=== PATIENT | female | born 1950 | race Caucasian/White ===

== ENCOUNTER → 2016-05-22 | Outpatient (CLI) | payer MEDICARE ==
[~2016-05-22] MED LIST: /ACETCOD2T PO; /ALEN70TA; /ESOM40CA OR; /MOM400 OR; /PANT40TA; /SALMDISK IN; /TIOT18INH; /TIOT18INH INH; /WARF25TA OR; ACET65TA OR; ADV250INH INH; ADVA115A INH; AMLO5TAB2 PO; AMRIX; ASPI1TAB PO; ATEN100T PO; BABY81CH OR; CALC600T10; CALCTAB22 OR; CELE20TA OR; CIPR500T89 PO; CLAR5CHW; CLAR5CHW OR; CLIN300C OR; COMBVENT INH; CORE3.12 PO; CYCLOBENZAPRINE PO; FLON1SPR; FORADIL; FURO20TA2 PO; FURO40TA2 PO; GABA300C3 PO; GABA300T; GEMF600T; GEMF600T OR; GLUC1000 OR; IPRASOL4 INH; JANU100T PO; JANUVIA; KLOR1TAB77 PO; LASI40TA OR; LEVA500T PO; LISI-542 PO; LISI2.5T3 PO; LISI5TAB PO; MAGN400C2 PO; MAGN400T5 PO; METF1000 PO; METO5TA PO; MULTIVIT; MULTLIQ7 PO; NEUR300C; PERC7.5T8 OR; PLAV75TA2; POTA20TA; POTA20TA PO; PRED1TAB32 OR; PROA1AER INH; PROT1TAB2 PO; RYZOLT; SING10TA31 OR; SINGULAIR PO; SKEL800T5; SPIR1CAP INH; SPIR25TA2 PO; SUCR1TAB56 PO; TENO100T OR; TIZA2CAP3 PO; TIZA4CAP3 PO; TRAM50TA2 PO; TYLENOL ARTHRITIS; VICO5TAB OR; VIT D 2000 PO; VITA200038 PO; VITAMIN D; ZANA4TAB PO; ZOCO20TA; ZOCO40TA PO; januvia OR
[2016-05-22 13:30] LABS: MEAN CORPUSCULAR HEMOGLOBIN 27.8 pg (27.0-33.0); MEAN CORPUSCULAR HGB CONC 33.7 g/dl (32.0-36.5); MEAN CORPUSCULAR VOLUME 82.6 fl (80.0-96.0); RED CELL DISTRIBUTION WIDTH 15.3 % (11.5-14.5); WHITE BLOOD COUNT 8.8 K/mm3 (4.0-10.0)
[2016-05-22 13:45] LABS: ANION GAP 9 MEQ/L (8-16); BLOOD UREA NITROGEN 15 MG/DL (7-18); CALCIUM LEVEL 9.4 MG/DL (8.8-10.2); CARBON DIOXIDE LEVEL 31 MEQ/L (21-32); CHLORIDE LEVEL 99 MEQ/L (98-107); CREATININE FOR GFR 0.94 MG/DL (0.55-1.02); GLOMERULAR FILTRATION RATE > 60.0 (>45); GLUCOSE, FASTING 101 MG/DL (80-110); POTASSIUM SERUM 4.5 MEQ/L (3.5-5.1); SODIUM LEVEL 139 MEQ/L (136-145)
== END ==
LOC: M SMT 10:28
PROVIDERS: ATTEND Urology
DX: Z85.51 Personal history of malignant neoplasm of bladder (principal); Z79.899 Other long term (current) drug therapy

== ENCOUNTER → 2016-06-09 | Outpatient (CLI) | payer MEDICARE ==
[~2016-06-09] VITALS: Ht 154.9 cm; Wt 101.2 kg
[~2016-06-09] MED LIST changes: +ESOM0.1C PO; +FURO1TAB15 PO; +LIDOCAINE 2% INJ 100 MG/5 ML SDV (FOR ANES.) As Ordered ONE; +NS 1,000 ML IV SCH; +PROPOFOL 200 MG/20 ML VIAL As Ordered ONE; +SITA50TAB PO; +SUCR1TA PO; +VITA10002 PO
--- NOTE | 2016-06-09 09:28 | ROOR ---
Patient Name: Meena Lerma Procedure Date: 06/09/2016 9:06 AM Date of : 1950 Age: 66 Room: [facility] Gender: Female Note Status: Finalized Procedure: Upper GI endoscopy + Biopsies Indications: Heartburn, Suspected gastroparesis, Weight loss Providers: Feliciano Petersen MD Referring MD: Obinna Carter MD Requesting Provider: Medicines: Monitored Anesthesia Care Complications: No immediate complications. Procedure: Pre-Anesthesia Assessment: - The heart rate, respiratory rate, oxygen saturations, blood pressure, adequacy of pulmonary ventilation, and response to care were monitored throughout the procedure. The Endoscope was introduced through the mouth, and advanced to the second part of duodenum. The upper GI endoscopy was accomplished without difficulty. The patient tolerated the procedure well. Findings: The Z-line was irregular and was found 39 cm from the incisors. Multiple biopsies were obtained with cold forceps for evaluation to rule out Bernal's Esophagus randomly at the gastroesophageal junction. No other significant abnormalities were identified in a careful examination of the stomach. The exam of the duodenum was otherwise normal. Impression: - Z-line irregular, 39 cm from the incisors. - Multiple biopsies were obtained at the gastroesophageal junction. - The examination was otherwise normal. Recommendation: - Patient has a contact number available for emergencies. The signs and symptoms of potential delayed complications were discussed with the patient. Return to normal activities tomorrow. Written discharge instructions were provided to the patient. - High fiber diet. - Discharge patient to home. - Follow an antireflux regimen. - Continue present medications. - Await pathology results. - Telephone GI clinic for pathology results in 1 week. - Return to referring physician. - Use metoclopramide 5 mg PO QID; 30 min AC and HS. - The findings and recommendations were discussed with the patient's family. Feliciano Petersen MD Feliciano Petersen MD 06/09/2016 9:28:02 AM This report has been signed electronically. Number of Addenda: 0 Note Initiated On: 06/09/2016 9:06 AM Estimated Blood Loss: Estimated blood loss: none.
[2016-06-09 09:50] VITALS: BP 115/67
== END | disposition home or self-care (01) ==
LOC: M OPP 08:15
PROVIDERS: ATTEND Internal Medicine Gastroenterology
DX: R63.4 Abnormal weight loss (principal); K22.8 Other specified diseases of esophagus; R12 Heartburn; I25.10 Atherosclerotic heart disease of native coronary artery without angina pectoris; I10 Essential (primary) hypertension; E78.5 Hyperlipidemia, unspecified; R60.9 Edema, unspecified; E11.9 Type 2 diabetes mellitus without complications; R23.3 Spontaneous ecchymoses; G47.30 Sleep apnea, unspecified; M19.90 Unspecified osteoarthritis, unspecified site; M54.9 Dorsalgia, unspecified; J44.9 Chronic obstructive pulmonary disease, unspecified; Z85.51 Personal history of malignant neoplasm of bladder; Z92.21 Personal history of antineoplastic chemotherapy; Z95.5 Presence of coronary angioplasty implant and graft; F17.210 Nicotine dependence, cigarettes, uncomplicated; Z88.0 Allergy status to penicillin; Z79.51 Long term (current) use of inhaled steroids; Z79.82 Long term (current) use of aspirin; Z79.84 Long term (current) use of oral hypoglycemic drugs; Z79.899 Other long term (current) drug therapy; Z08 Encounter for follow-up examination after completed treatment for malignant neoplasm

== ENCOUNTER → 2016-07-25 | Outpatient (CLI) | payer MEDICARE, MEDICAID ==
[~2016-07-25] MED LIST changes: -LIDOCAINE 2% INJ 100 MG/5 ML SDV (FOR ANES.) As Ordered ONE; -NS 1,000 ML IV SCH; -PROPOFOL 200 MG/20 ML VIAL As Ordered ONE
[2016-07-25 09:59] LABS: MEAN CORPUSCULAR HEMOGLOBIN 27.3 pg (27.0-33.0); MEAN CORPUSCULAR HGB CONC 32.4 g/dl (32.0-36.5); MEAN CORPUSCULAR VOLUME 84.4 fl (80.0-96.0); RED CELL DISTRIBUTION WIDTH 14.5 % (11.5-14.5)
[2016-07-25 10:24] LABS: ALBUMIN 3.5 GM/DL (3.2-5.2); ALBUMIN/GLOBULIN RATIO 1.03 (1.00-1.93); ALKALINE PHOSPHATASE 111 U/L (45-117); ALT/SGPT 22 U/L (12-78); ANION GAP 2 MEQ/L (8-16); AST/SGOT 13 U/L (15-37); BILIRUBIN,TOTAL 0.6 MG/DL (0.2-1.0); BLOOD UREA NITROGEN 19 MG/DL (7-18); CARBON DIOXIDE LEVEL 37 MEQ/L (21-32); CHLORIDE LEVEL 100 MEQ/L (98-107); CHOLESTEROL LEVEL 149 MG/DL (<200); GLOMERULAR FILTRATION RATE > 60.0 (>45); GLUCOSE, FASTING 110 MG/DL (80-110); POTASSIUM SERUM 4.3 MEQ/L (3.5-5.1); SODIUM LEVEL 139 MEQ/L (136-145); TOTAL PROTEIN 6.9 GM/DL (6.4-8.2); TRIGLYCERIDES LEVEL 159 MG/DL (<150)
== END ==
LOC: M LAB 08:58
PROVIDERS: ATTEND Nurse Practitioner Family
DX: E11.9 Type 2 diabetes mellitus without complications (principal); I10 Essential (primary) hypertension; E78.5 Hyperlipidemia, unspecified; E55.9 Vitamin D deficiency, unspecified

== ENCOUNTER → 2016-12-11 | Outpatient (CLI) | payer MEDICARE, MEDICAID ==
[~2016-12-11] MED LIST changes: -FURO1TAB15 PO; +FURO80TA2 PO; +GABA-282 PO; -GABA300C3 PO; +LEVA1TAB2 PO; -LEVA500T PO; -METF1000 PO; +METF10004 PO; -PROA1AER INH; +PROAAER10 INH
[2016-12-11 12:03] LABS: MEAN CORPUSCULAR HEMOGLOBIN 27.4 pg (27.0-33.0); MEAN CORPUSCULAR HGB CONC 33.2 g/dl (32.0-36.5); MEAN CORPUSCULAR VOLUME 82.4 fl (80.0-96.0); RED CELL DISTRIBUTION WIDTH 15.8 % (11.5-14.5); WHITE BLOOD COUNT 7.7 K/mm3 (4.0-10.0)
[2016-12-11 12:34] LABS: ALBUMIN 3.7 GM/DL (3.2-5.2); ALBUMIN/GLOBULIN RATIO 1.12 (1.00-1.93); ALKALINE PHOSPHATASE 103 U/L (45-117); ALT/SGPT 19 U/L (12-78); ANION GAP 7 MEQ/L (8-16); AST/SGOT 12 U/L (15-37); BILIRUBIN,TOTAL 0.6 MG/DL (0.2-1.0); BLOOD UREA NITROGEN 12 MG/DL (7-18); CALCIUM LEVEL 9.4 MG/DL (8.8-10.2); CARBON DIOXIDE LEVEL 31 MEQ/L (21-32); CHLORIDE LEVEL 101 MEQ/L (98-107); CREATININE FOR GFR 0.76 MG/DL (0.55-1.02); GLOMERULAR FILTRATION RATE > 60.0 (>45); GLUCOSE, FASTING 87 MG/DL (80-110); POTASSIUM SERUM 4.9 MEQ/L (3.5-5.1); SODIUM LEVEL 139 MEQ/L (136-145)
[2016-12-11 12:34] LABS: CALCIUM OXALATE CRYSTALS MODERATE
== END ==
LOC: M LAB 11:18
PROVIDERS: ATTEND Urology
DX: Z85.51 Personal history of malignant neoplasm of bladder (principal); Z79.899 Other long term (current) drug therapy

== ENCOUNTER → 2017-01-01 | Outpatient (CLI) | payer MEDICARE, MEDICAID ==
--- NOTE | 2017-01-01 12:12 | REP ---
Clinical: COPD. Technique: PA and lateral. Comparison: 01/17/2016. Findings: Mediastinum and cardiac silhouette are normal. Lung vargas demonstrate chronic stable interstitial changes with a basilar predominance. No focal consolidation, effusion, or pneumothorax. Skeletal structures are intact. Impression: Chronic stable changes. If the patient remains or becomes symptomatic, chest CT may be warranted for further investigation. Signed by José Miguel Kay MD 01/01/2017 12:02 P
== END ==
LOC: M SMT 11:08
PROVIDERS: ATTEND Nurse Practitioner Adult Health
DX: J44.9 Chronic obstructive pulmonary disease, unspecified (principal)
CPT/HCPCS: 51720; 71020; 87070; 87077; 87186; 87205; J9031

== ENCOUNTER → 2017-01-01 | Outpatient (REF) | payer MEDICARE, MEDICAID | LOC: M LAB REF 13:21 | PROVIDERS: ATTEND Nurse Practitioner Adult Health | DX: J44.9 Chronic obstructive pulmonary disease, unspecified (principal) ==

== ENCOUNTER → 2017-02-02 | Outpatient (REF) | payer MEDICARE, MEDICAID | LOC: M SMT 13:08 | PROVIDERS: ATTEND Urology | DX: Z85.51 Personal history of malignant neoplasm of bladder (principal) ==

== ENCOUNTER → 2017-03-12 | Outpatient (CLI) | payer MEDICARE, MEDICAID ==
--- NOTE | 2017-03-13 23:19 | SLEEPCENT ---
DATE OF PROCEDURE: 03/12/2017 REFERRING PHYSICIAN: Fernando Daniels MD Nocturnal polysomnography was performed for retitration of pressure therapy in this patient with obstructive sleep apnea syndrome. For testing, a [employer] Simplus full face mask of small size was used. Initial pressure of 18 cm was applied to the circuit and the lights were extinguished. 7 hours and 21 minutes of data were reviewed. There were 266 minutes of sleep identified. Sleep latency was prolonged at 37 minutes. Rapid eye movement (REM) latency was prolonged at 250 minutes. Sleep architecture initially fragmented, did improve late in the study. The patient achieved REM sleep around 4:00 a.m. Overall sleep efficiency was 61% due to periods of wake early in the test. The electrocardiogram shows an irregular rhythm, possibly atrial fibrillation, the average heart rate was 72 beats per minute. EEG showed some coarsening in background. Some artifactual changes are noted, but no focal events were seen. There were only 5 respiratory events identified of 10 seconds in duration or greater prompting an increase in CPAP pressure to the optimal pressure of 19. Subsequent hypoventilatory desaturations prompted the addition of supplemental oxygen. Best sleep was seen on a CPAP pressure of 19 with 3 liters of oxygen bled into the system. Some limb activity was seen early in the test, less so later in the study. IMPRESSION: Obstructive sleep apnea syndrome (G47.33). RECOMMENDATION: Nightly use of pressure therapy at 19 cm of water with 3 liters of oxygen bled through the system to address hypoventilatory oxygen desaturations. Edited 03/17/2017 @ 1028 [facility]
== END ==
LOC: M SLEEP 19:52
PROVIDERS: ATTEND Internal Medicine Pulmonary Disease
DX: G47.33 Obstructive sleep apnea (adult) (pediatric) (principal)

== ENCOUNTER → 2017-05-10 | Outpatient (CLI) | payer MEDICARE, MEDICAID | LOC: M SLEEP 20:00 | DX: G47.33 Obstructive sleep apnea (adult) (pediatric) (principal) | CPT/HCPCS: 95810 ==

== ENCOUNTER → 2017-05-11 | Outpatient (CLI) | payer MEDICARE, MEDICAID ==
[2017-05-11 07:55] LABS: HEMATOCRIT 41.5 % (36.0-47.0); HEMOGLOBIN 13.1 g/dl (12.0-16.0); MEAN CORPUSCULAR HEMOGLOBIN 26.6 pg (27.0-33.0); MEAN CORPUSCULAR HGB CONC 31.6 g/dl (32.0-36.5); MEAN CORPUSCULAR VOLUME 84.2 fl (80.0-96.0); PLATELET COUNT, AUTOMATED 243 10^3/uL (150-450); RED BLOOD COUNT 4.93 10^6/uL (4.00-5.40); RED CELL DISTRIBUTION WIDTH 16.7 % (11.5-14.5); WHITE BLOOD COUNT 6.6 10^3/uL (4.0-10.0)
[2017-05-11 08:22] LABS: ALBUMIN 3.5 GM/DL (3.2-5.2); ALBUMIN/GLOBULIN RATIO 1.06 (1.00-1.93); ALKALINE PHOSPHATASE 102 U/L (45-117); ALT/SGPT 23 U/L (12-78); ANION GAP 5 MEQ/L (8-16); AST/SGOT 12 U/L (7-37); BILIRUBIN,TOTAL 0.3 MG/DL (0.2-1.0); BLOOD UREA NITROGEN 12 MG/DL (7-18); CALCIUM LEVEL 8.7 MG/DL (8.8-10.2); CARBON DIOXIDE LEVEL 31 MEQ/L (21-32); CHLORIDE LEVEL 105 MEQ/L (98-107); CHOLESTEROL LEVEL 134 MG/DL (<200); CHOLESTEROL RISK RATIO 2.734 (<5); CPK CREATINE PHOSPHOKINASE 51 U/L (26-192); CREATININE FOR GFR 0.68 MG/DL (0.55-1.02); GLOMERULAR FILTRATION RATE > 60.0 (>45); GLUCOSE, FASTING 105 MG/DL (80-110); HDL CHOLESTEROL 49 MG/DL (>40); LDL CHOLESTEROL 65.6 MG/DL (<100); NON-HDL-C 85 MG/DL; POTASSIUM SERUM 4.4 MEQ/L (3.5-5.1); SODIUM LEVEL 141 MEQ/L (136-145); TOTAL PROTEIN 6.8 GM/DL (6.4-8.2); TRIGLYCERIDES LEVEL 97 MG/DL (<150)
[2017-05-11 10:19] LABS: ESTIMATED AVERAGE GLUCOSE 131 MG/DL (60-110); HEMOGLOBIN A1c 6.2 %
== END ==
LOC: M LAB 06:36
DX: E78.5 Hyperlipidemia, unspecified (principal); I10 Essential (primary) hypertension; E11.9 Type 2 diabetes mellitus without complications
CPT/HCPCS: 82550

== ENCOUNTER → 2017-07-10 | Outpatient (CLI) | payer MEDICARE, MEDICAID | LOC: M WHC 11:04 | DX: M81.0 Age-related osteoporosis without current pathological fracture (principal) | CPT/HCPCS: 77080 ==

== ENCOUNTER → 2017-07-10 | Outpatient (CLI) | payer MEDICARE, MEDICAID | LOC: M WHC 10:56 | DX: Z12.31 Encounter for screening mammogram for malignant neoplasm of breast (principal); Z92.21 Personal history of antineoplastic chemotherapy; Z80.3 Family history of malignant neoplasm of breast; E65 Localized adiposity | CPT/HCPCS: 77067 ==

== ENCOUNTER → 2017-08-03 | Outpatient (CLI) | payer MEDICARE, MEDICAID ==
[2017-08-03 14:32] LABS: HEMATOCRIT 44.8 % (36.0-47.0); HEMOGLOBIN 14.4 g/dl (12.0-15.5); MEAN CORPUSCULAR HEMOGLOBIN 27.3 pg (27.0-33.0); MEAN CORPUSCULAR HGB CONC 32.1 g/dl (32.0-36.5); PLATELET COUNT, AUTOMATED 293 10^3/uL (150-450); RED BLOOD COUNT 5.27 10^6/uL (4.00-5.40); RED CELL DISTRIBUTION WIDTH 16.8 % (11.5-14.5); WHITE BLOOD COUNT 11.9 10^3/uL (4.0-10.0)
[2017-08-03 15:06] LABS: ALBUMIN 3.7 GM/DL (3.2-5.2); ALBUMIN/GLOBULIN RATIO 1.06 (1.00-1.93); ALKALINE PHOSPHATASE 93 U/L (45-117); ALT/SGPT 21 U/L (12-78); ANION GAP 8 MEQ/L (8-16); AST/SGOT 12 U/L (7-37); BILIRUBIN,TOTAL 0.7 MG/DL (0.2-1.0); BLOOD UREA NITROGEN 12 MG/DL (7-18); CARBON DIOXIDE LEVEL 28 MEQ/L (21-32); CHLORIDE LEVEL 104 MEQ/L (98-107); CREATININE FOR GFR 0.86 MG/DL (0.55-1.30); GLOMERULAR FILTRATION RATE > 60.0 (>45); GLUCOSE, FASTING 98 MG/DL (70-100); POTASSIUM SERUM 4.9 MEQ/L (3.5-5.1); SODIUM LEVEL 140 MEQ/L (136-145); TOTAL PROTEIN 7.2 GM/DL (6.4-8.2)
== END ==
LOC: M SMT 11:51
DX: Z85.51 Personal history of malignant neoplasm of bladder (principal)
CPT/HCPCS: 80053

== ENCOUNTER → 2017-08-10 | Outpatient (CLI) | payer MEDICARE, MEDICAID ==
[2017-08-10 14:16] LABS: HEMATOCRIT 46.1 % (36.0-47.0); HEMOGLOBIN 15.2 g/dl (12.0-15.5); MEAN CORPUSCULAR HEMOGLOBIN 27.8 pg (27.0-33.0); MEAN CORPUSCULAR VOLUME 84.3 fl (80.0-96.0); PLATELET COUNT, AUTOMATED 277 10^3/uL (150-450); RED BLOOD COUNT 5.47 10^6/uL (4.00-5.40); RED CELL DISTRIBUTION WIDTH 16.3 % (11.5-14.5); WHITE BLOOD COUNT 11.9 10^3/uL (4.0-10.0)
[2017-08-10 14:55] LABS: ALBUMIN/GLOBULIN RATIO 1.08 (1.00-1.93); ALKALINE PHOSPHATASE 104 U/L (45-117); ALT/SGPT 25 U/L (12-78); ANION GAP 8 MEQ/L (8-16); AST/SGOT 14 U/L (7-37); BILIRUBIN,TOTAL 0.9 MG/DL (0.2-1.0); BLOOD UREA NITROGEN 17 MG/DL (7-18); CALCIUM LEVEL 9.7 MG/DL (8.8-10.2); CARBON DIOXIDE LEVEL 30 MEQ/L (21-32); CHLORIDE LEVEL 97 MEQ/L (98-107); CHOLESTEROL LEVEL 200 MG/DL (<200); CPK CREATINE PHOSPHOKINASE 56 U/L (26-192); CREATININE FOR GFR 1.09 MG/DL (0.55-1.30); GLUCOSE, FASTING 141 MG/DL (70-100); HDL CHOLESTEROL 50 MG/DL (>40); NON-HDL-C 150 MG/DL; POTASSIUM SERUM 4.8 MEQ/L (3.5-5.1); SODIUM LEVEL 135 MEQ/L (136-145); TOTAL 25(OH) VITAMIN D 41.3 NG/ML (30.0-100.0); TOTAL PROTEIN 7.7 GM/DL (6.4-8.2); TRIGLYCERIDES LEVEL 200 MG/DL (<150)
[2017-08-10 15:27] LABS: CREATININE, URINE 27.7 MG/DL; MALB URINE SIEMENS 51.9 MG/L; MAU/CREAT RATIO 187.3 MCG/MG (0.0-30.0)
[2017-08-10 15:35] LABS: ESTIMATED AVERAGE GLUCOSE 148 MG/DL (60-110); HEMOGLOBIN A1c 6.8 %
== END ==
LOC: M LAB 12:57
DX: E55.9 Vitamin D deficiency, unspecified (principal); E78.00 Pure hypercholesterolemia, unspecified; I10 Essential (primary) hypertension; E11.9 Type 2 diabetes mellitus without complications
CPT/HCPCS: 82550

== ENCOUNTER → 2017-08-13 | Outpatient (REF) | payer MEDICARE, MEDICAID ==
[2017-08-13 14:13] LABS: APPEARANCE, URINE CLEAR (CLEAR); BACTERIA, URINE AUTO NEGATIVE (NEGATIVE); BILIRUBIN, URINE AUTO NEGATIVE (NEGATIVE); BLOOD, URINE BLOOD NEGATIVE (NEGATIVE); COLOR, URINE YELLOW (YELLOW); GLUCOSE, URINE (UA) AUTO NEGATIVE (NEGATIVE); KETONE, URINE AUTO NEGATIVE (NEGATIVE); LEUKOCYTE ESTERASE, URINE AUTO NEGATIVE (NEGATIVE); NITRITE, URINE AUTO NEGATIVE (NEGATIVE); PROTEIN, URINE AUTO NEGATIVE (NEGATIVE); RBC, URINE AUTO 0 /HPF (0-3); SPECIFIC GRAVITY URINE AUTO 1.005 (1.002-1.035); SQUAMOUS EPITHELIAL CELL UR AU 1 /HPF (0-6); UROBILINOGEN, URINE AUTO 0.2 mg/dL (0.0-2.0); WBC, URINE AUTO 1 /HPF (0-3)
== END ==
LOC: M SMT 12:59
DX: Z85.51 Personal history of malignant neoplasm of bladder (principal)
CPT/HCPCS: 81001

== ENCOUNTER → 2017-11-09 | Outpatient (CLI) | payer MEDICARE, MEDICAID ==
[2017-11-09 11:38] LABS: HEMATOCRIT 42.9 % (36.0-47.0); MEAN CORPUSCULAR HEMOGLOBIN 28.1 pg (27.0-33.0); MEAN CORPUSCULAR HGB CONC 32.6 g/dl (32.0-36.5); PLATELET COUNT, AUTOMATED 227 10^3/uL (150-450); RED BLOOD COUNT 4.99 10^6/uL (4.00-5.40); RED CELL DISTRIBUTION WIDTH 14.4 % (11.5-14.5); WHITE BLOOD COUNT 6.8 10^3/uL (4.0-10.0)
[2017-11-09 12:07] LABS: ALBUMIN 3.5 GM/DL (3.2-5.2); ALBUMIN/GLOBULIN RATIO 1.06 (1.00-1.93); ALKALINE PHOSPHATASE 96 U/L (45-117); ALT/SGPT 19 U/L (12-78); ANION GAP 7 MEQ/L (8-16); AST/SGOT 9 U/L (7-37); BILIRUBIN,TOTAL 0.5 MG/DL (0.2-1.0); BLOOD UREA NITROGEN 15 MG/DL (7-18); CARBON DIOXIDE LEVEL 32 MEQ/L (21-32); CHLORIDE LEVEL 103 MEQ/L (98-107); CHOLESTEROL LEVEL 158 MG/DL (<200); CHOLESTEROL RISK RATIO 3.291 (<5); CPK CREATINE PHOSPHOKINASE 67 U/L (26-192); CREATININE FOR GFR 0.86 MG/DL (0.55-1.30); GLOMERULAR FILTRATION RATE > 60.0 (>45); GLUCOSE, FASTING 103 MG/DL (70-100); HDL CHOLESTEROL 48 MG/DL (>40); LDL CHOLESTEROL 73.8 MG/DL (<100); NON-HDL-C 110 MG/DL; POTASSIUM SERUM 4.8 MEQ/L (3.5-5.1); SODIUM LEVEL 142 MEQ/L (136-145); TOTAL PROTEIN 6.8 GM/DL (6.4-8.2); TRIGLYCERIDES LEVEL 181 MG/DL (<150)
[2017-11-09 12:18] LABS: MALB URINE SIEMENS 8.2 MG/L; MAU/CREAT RATIO 6.3 MCG/MG (0.0-30.0)
[2017-11-09 12:28] LABS: ESTIMATED AVERAGE GLUCOSE 146 MG/DL (60-110); HEMOGLOBIN A1c 6.7 %
== END ==
LOC: M LAB 11:08
DX: E78.5 Hyperlipidemia, unspecified (principal); I10 Essential (primary) hypertension; E11.9 Type 2 diabetes mellitus without complications
CPT/HCPCS: 82550

== ENCOUNTER 2017-12-21 09:39 | Day surgery (SDC) | payer MEDICARE, MEDICAID ==
[~2017-12-21 09:39] MED LIST changes: -/ACETCOD2T PO; -/ALEN70TA; -/ESOM40CA OR; -/MOM400 OR; -/PANT40TA; -/SALMDISK IN; -/TIOT18INH; -/TIOT18INH INH; -/WARF25TA OR; -ACET65TA OR; -ADV250INH INH; -ADVA115A INH; -AMLO5TAB2 PO; -AMRIX; -ASPI1TAB PO; -ATEN100T PO; -BABY81CH OR; -CALC600T10; -CALCTAB22 OR; -CELE20TA OR; -CIPR500T89 PO; -CLAR5CHW; -CLAR5CHW OR; -CLIN300C OR; -COMBVENT INH; -CORE3.12 PO; -CYCLOBENZAPRINE PO; -ESOM0.1C PO; -FLON1SPR; -FORADIL; -FURO20TA2 PO; -FURO40TA2 PO; -FURO80TA2 PO; -GABA-282 PO; -GABA300T; -GEMF600T; -GEMF600T OR; -GLUC1000 OR; -IPRASOL4 INH; -JANU100T PO; -JANUVIA; -KLOR1TAB77 PO; -LASI40TA OR; -LEVA1TAB2 PO; -LISI-542 PO; -LISI2.5T3 PO; -LISI5TAB PO; -MAGN400C2 PO; -MAGN400T5 PO; -METF10004 PO; -METO5TA PO; -MULTIVIT; -MULTLIQ7 PO; -NEUR300C; +NS 1,000 ML IV; -PERC7.5T8 OR; -PLAV75TA2; -POTA20TA; -POTA20TA PO; -PRED1TAB32 OR; -PROAAER10 INH; -PROT1TAB2 PO; -RYZOLT; -SING10TA31 OR; -SINGULAIR PO; -SITA50TAB PO; -SKEL800T5; -SPIR1CAP INH; -SPIR25TA2 PO; -SUCR1TA PO; -SUCR1TAB56 PO; -TENO100T OR; -TIZA2CAP3 PO; -TIZA4CAP3 PO; -TRAM50TA2 PO; -TYLENOL ARTHRITIS; -VICO5TAB OR; -VIT D 2000 PO; -VITA10002 PO; -VITA200038 PO; -VITAMIN D; -ZANA4TAB PO; -ZOCO20TA; -ZOCO40TA PO; -januvia OR
[2017-12-21] MEDS ORDERED: PROPOFOL 200 MG/20 ML VIAL As Ordered ×2 (10:35)
[2017-12-21] MEDS ORDERED: LIDOCAINE 2% INJ 100 MG/5 ML SDV (FOR ANES.) As Ordered (11:04)
[2017-12-21] MEDS ORDERED: PHENYLephrine HCL 500 MCG/5 ML (100MCG/ML) SYRINGE (J2370) As Ordered (11:30)
== END 2017-12-21 12:38 | disposition home or self-care (01) ==
LOC: M OPP 09:39
DX: Z12.11 Encounter for screening for malignant neoplasm of colon (principal); Z86.010 Personal history of colon polyps; D12.6 Benign neoplasm of colon, unspecified; K64.0 First degree hemorrhoids; K57.30 Diverticulosis of large intestine without perforation or abscess without bleeding; Z95.5 Presence of coronary angioplasty implant and graft; I25.10 Atherosclerotic heart disease of native coronary artery without angina pectoris; I25.6 Silent myocardial ischemia; I10 Essential (primary) hypertension; E78.5 Hyperlipidemia, unspecified; R60.9 Edema, unspecified; Z92.21 Personal history of antineoplastic chemotherapy; Z85.51 Personal history of malignant neoplasm of bladder; E11.9 Type 2 diabetes mellitus without complications; K21.9 Gastro-esophageal reflux disease without esophagitis; R12 Heartburn; R06.02 Shortness of breath; M19.90 Unspecified osteoarthritis, unspecified site; M54.89 Other dorsalgia; F41.9 Anxiety disorder, unspecified; F32.9 Major depressive disorder, single episode, unspecified; J44.9 Chronic obstructive pulmonary disease, unspecified; G47.30 Sleep apnea, unspecified; Z87.442 Personal history of urinary calculi; Z96.643 Presence of artificial hip joint, bilateral; F17.210 Nicotine dependence, cigarettes, uncomplicated; Z88.0 Allergy status to penicillin; Z79.82 Long term (current) use of aspirin; Z79.899 Other long term (current) drug therapy; Z79.84 Long term (current) use of oral hypoglycemic drugs; Z80.3 Family history of malignant neoplasm of breast
CPT/HCPCS: 45385

== ENCOUNTER → 2018-02-08 | Outpatient (REF) | payer MEDICARE | LOC: M SMT 13:09 | DX: Z85.51 Personal history of malignant neoplasm of bladder (principal) | CPT/HCPCS: 88108 ==

== ENCOUNTER → 2018-02-26 | Outpatient (CLI) | payer MEDICARE ==
[2018-02-26 10:16] LABS: HEMATOCRIT 42.1 % (36.0-47.0); HEMOGLOBIN 13.3 g/dl (12.0-15.5); MEAN CORPUSCULAR HEMOGLOBIN 27.8 pg (27.0-33.0); MEAN CORPUSCULAR HGB CONC 31.6 g/dl (32.0-36.5); MEAN CORPUSCULAR VOLUME 88.1 fl (80.0-96.0); PLATELET COUNT, AUTOMATED 238 10^3/uL (150-450); RED BLOOD COUNT 4.78 10^6/uL (4.00-5.40); RED CELL DISTRIBUTION WIDTH 15.1 % (11.5-14.5); WHITE BLOOD COUNT 6.8 10^3/uL (4.0-10.0)
[2018-02-26 10:49] LABS: ALBUMIN 3.8 GM/DL (3.2-5.2); ALBUMIN/GLOBULIN RATIO 1.31 (1.00-1.93); ALKALINE PHOSPHATASE 88 U/L (45-117); ALT/SGPT 18 U/L (12-78); ANION GAP 4 MEQ/L (8-16); AST/SGOT 12 U/L (7-37); BILIRUBIN,TOTAL 0.7 MG/DL (0.2-1.0); BLOOD UREA NITROGEN 23 MG/DL (7-18); CALCIUM LEVEL 9.2 MG/DL (8.8-10.2); CARBON DIOXIDE LEVEL 32 MEQ/L (21-32); CHLORIDE LEVEL 103 MEQ/L (98-107); CHOLESTEROL LEVEL 159 MG/DL (<200); CHOLESTEROL RISK RATIO 3.613 (<5); CPK CREATINE PHOSPHOKINASE 75 U/L (26-192); CREATININE FOR GFR 0.94 MG/DL (0.55-1.30); GLOMERULAR FILTRATION RATE > 60.0 (>39); GLUCOSE, FASTING 90 MG/DL (70-100); HDL CHOLESTEROL 44 MG/DL (>40); LDL CHOLESTEROL 76 MG/DL (<100); NON-HDL-C 115 MG/DL; POTASSIUM SERUM 4.9 MEQ/L (3.5-5.1); SODIUM LEVEL 139 MEQ/L (136-145); TOTAL PROTEIN 6.7 GM/DL (6.4-8.2); TRIGLYCERIDES LEVEL 195 MG/DL (<150)
[2018-02-26 11:08] LABS: MALB URINE SIEMENS 18.3 MG/L; MAU/CREAT RATIO 16.6 MCG/MG (0.0-30.0)
[2018-02-26 11:32] LABS: ESTIMATED AVERAGE GLUCOSE 140 MG/DL (60-110); HEMOGLOBIN A1c 6.5 %
== END ==
LOC: M LAB 09:07
DX: E78.00 Pure hypercholesterolemia, unspecified (principal); E11.9 Type 2 diabetes mellitus without complications; I10 Essential (primary) hypertension
CPT/HCPCS: 82550

== ENCOUNTER → 2018-03-08 | Outpatient (CLI) | payer MEDICARE ==
[2018-03-08 11:37] LABS: HEMATOCRIT 40.5 % (36.0-47.0); HEMOGLOBIN 13.1 g/dl (12.0-15.5); MEAN CORPUSCULAR HEMOGLOBIN 27.8 pg (27.0-33.0); MEAN CORPUSCULAR HGB CONC 32.3 g/dl (32.0-36.5); PLATELET COUNT, AUTOMATED 209 10^3/uL (150-450); RED BLOOD COUNT 4.71 10^6/uL (4.00-5.40); RED CELL DISTRIBUTION WIDTH 14.9 % (11.5-14.5); WHITE BLOOD COUNT 6.6 10^3/uL (4.0-10.0)
[2018-03-08 11:58] LABS: APPEARANCE, URINE CLEAR (CLEAR); BACTERIA, URINE AUTO NEGATIVE (NEGATIVE); BILIRUBIN, URINE AUTO NEGATIVE (NEGATIVE); BLOOD, URINE BLOOD NEGATIVE (NEGATIVE); COLOR, URINE YELLOW (YELLOW); GLUCOSE, URINE (UA) AUTO NEGATIVE (NEGATIVE); KETONE, URINE AUTO NEGATIVE (NEGATIVE); LEUKOCYTE ESTERASE, URINE AUTO 1+ (NEGATIVE); NITRITE, URINE AUTO NEGATIVE (NEGATIVE); PROTEIN, URINE AUTO NEGATIVE (NEGATIVE); RBC, URINE AUTO 1 /HPF (0-3); SPECIFIC GRAVITY URINE AUTO 1.013 (1.002-1.035); SQUAMOUS EPITHELIAL CELL UR AU 0 /HPF (0-6); UROBILINOGEN, URINE AUTO 0.2 mg/dL (0.0-2.0); WBC, URINE AUTO 4 /HPF (0-3)
[2018-03-08 12:29] LABS: ANION GAP 9 MEQ/L (8-16); BLOOD UREA NITROGEN 23 MG/DL (7-18); CALCIUM LEVEL 8.7 MG/DL (8.8-10.2); CARBON DIOXIDE LEVEL 28 MEQ/L (21-32); CHLORIDE LEVEL 101 MEQ/L (98-107); CREATININE FOR GFR 0.96 MG/DL (0.55-1.30); GLOMERULAR FILTRATION RATE > 60.0 (>39); GLUCOSE, FASTING 78 MG/DL (70-100); POTASSIUM SERUM 4.3 MEQ/L (3.5-5.1); SODIUM LEVEL 138 MEQ/L (136-145)
== END ==
LOC: M LAB 10:45
DX: Z08 Encounter for follow-up examination after completed treatment for malignant neoplasm (principal); Z85.51 Personal history of malignant neoplasm of bladder; Z79.899 Other long term (current) drug therapy
CPT/HCPCS: 80048

== ENCOUNTER → 2018-05-05 | Outpatient (CLI) | payer MEDICARE, MEDICAID ==
[~2018-05-05] MED LIST changes: +/ACETCOD2T PO; +/ALEN70TA; +/ESOM40CA OR; +/MOM400 OR; +/PANT40TA; +/SALMDISK IN; +/TIOT18INH; +/TIOT18INH INH; +/WARF25TA OR; +ACET65TA OR; +ADV250INH INH; +ADVA115A INH; +AMLO5TAB6 PO; +AMRIX; +ASPI1TAB PO; +ATEN100T PO; +BABY81CH OR; +CALC600T10; +CALCTAB22 OR; +CELE20TA OR; +CIPR500T89 PO; +CLAR5CHW; +CLAR5CHW OR; +CLIN300C OR; +COMBVENT INH; +CORE3.12 PO; +CYCLOBENZAPRINE PO; +ESOM0.1C PO; +FLON1SPR; +FORADIL; +FURO20TA2 PO; +FURO40TA2 PO; +FURO80TA2 PO; +GABA-843 PO; +GABA300T; +GEMF600T; +GEMF600T OR; +GLUC1000 OR; +IPRA0.00 INH; +JANU100T PO; +JANUVIA; +KLOR1TAB77 PO; +KLOR20TA42 PO; +LASI40TA OR; +LEVA1TAB2 PO; +LISI-542 PO; +LISI2.5T5 PO; +LISI5TAB PO; +MAGN400C2 PO; +MAGN400T5 PO; +METF10004 PO; +METO5TA PO; +MULTIVIT; +MULTLIQ7 PO; +NEUR300C; -NS 1,000 ML IV; +PERC7.5T8 OR; +PLAV75TA2; +POTA20TA; +PRED1TAB32 OR; +PROAAER10 INH; +PROT1TAB2 PO; +REGL5TAB2 PO; +RYZOLT; +SING10TA31 OR; +SINGULAIR PO; +SITA50TAB PO; +SKEL800T5; +SPIR-10 PO; +SPIR1CAP INH; +SUCR1TA PO; +SUCR1TAB56 PO; +TENO100T OR; +TIZA2CAP PO; +TIZA4CAP PO; +TRAM50TA2 PO; +TYLENOL ARTHRITIS; +VICO5TAB OR; +VIT D 2000 PO; +VITA10002 PO; +VITA200038 PO; +VITAMIN D; +ZANA4TAB PO; +ZOCO20TA; +ZOCO40TA PO; +januvia OR
--- NOTE | 2018-05-06 06:22 | REP ---
Clinical: Lung screening. History of nicotine dependence. Comparison: Chest CTA dated 05/01/2011 Technique: Axial low-dose noncontrast images from the thoracic inlet to the upper abdomen using lung screening technique. Findings: There is an irregular area of opacity/mass density in the right middle lobe measuring 2.6 cm maximal diameter with subtle spiculated margins (images 50-55) along with few scattered calcified and noncalcified nodules up to approximately 7 mm. Mild chronic interstitial changes and subtle emphysematous changes are suggested. No pleural effusion/reaction or pneumothorax. Tracheobronchial tree is patent. Mediastinum demonstrates atherosclerotic changes of the coronary arteries and thoracic aorta. Impression: Lung-RADS category 4. Opacity/mass density in the right middle lobe measures 2.6 cm diameter. PET-CT is recommended for further evaluation. Electronically Signed by José Miguel Kay MD 05/06/2018 06:15 A
== END ==
LOC: M RAD 10:59
PROVIDERS: ATTEND Internal Medicine Pulmonary Disease
DX: Z12.2 Encounter for screening for malignant neoplasm of respiratory organs (principal); F17.210 Nicotine dependence, cigarettes, uncomplicated

== ENCOUNTER → 2018-05-07 | Outpatient (REF) | payer MEDICARE, MEDICAID | LOC: M SMT 17:06 | PROVIDERS: ATTEND Urology | DX: C67.9 Malignant neoplasm of bladder, unspecified (principal) ==

== ENCOUNTER 2018-05-20 10:16 | Day surgery (SDC) | payer MEDICARE, MEDICAID ==
[~2018-05-20] VITALS: Ht 149.9 cm; Wt 92.1 kg
[~2018-05-20 10:16] MED LIST changes: +D5W 1,000 ML IV SCH; +ONDANSETRON 4MG/2ML VIAL (J2405) As Ordered ONE; +PROPOFOL 200 MG/20 ML VIAL As Ordered ONE; +dexameTHASONE 4 MG/ML 1ML VIAL (J1100) As Ordered ONE; +fentaNYL 100 MCG/2 ML INJECTION (J3010) As Ordered ONE
[2018-05-20] MEDS ORDERED: EPINEPHrine 1MG/10ML SYRINGE 1.5IN As Ordered ONE (11:04)
[2018-05-20] MEDS ORDERED: LIDOCAINE 1% MDV 20ML VIAL As Ordered ONE ×4 (11:05→12:34)
[2018-05-20] MEDS ORDERED: CETACAINE SPRAY 5GM As Ordered ONE (11:06)
[2018-05-20] MEDS ORDERED: LIDOCAINE VISCOUS 2% SOLN 15ML UDC As Ordered ONE (11:06)
[2018-05-20] MEDS ORDERED: PHENYLEPHRINE 0.5% NASAL SPRAY 15 ML As Ordered ONE (11:07)
[2018-05-20] MEDS ORDERED: MIDAZOLAM INJ 2 MG/2 ML VIAL (J2250) As Ordered ONE ×2 (11:39→12:26)
[2018-05-20] MEDS ORDERED: fentaNYL 100 MCG/2 ML INJECTION (J3010) As Ordered ONE (11:40)
--- NOTE | 2018-05-20 13:09 | RO ---
DATE OF STUDY: 05/20/2018 PREPROCEDURE DIAGNOSIS: Right middle lobe nodule. POSTPROCEDURE DIAGNOSIS: Right middle lobe nodule with chronic obstructive bronchitis. PROCEDURE: Fiberoptic bronchoscopy with washes, brushes, and photos. SURGEON: Dr. Fernando Daniels MODEL ARTISTS': ANESTHESIA: Conscious sedation with 25 mcg of fentanyl and 4 mg of Versed given intravenously and sequentially and titrated for effect. Local anesthesia was 2% viscous Xylocaine in the nose, Cetacaine spray in the pharynx, and 1% Xylocaine via the bronchoscope. INFORMED CONSENT: Was obtained prior to the procedure. OPERATIVE FINDINGS: 1. Redundant soft tissue in the pharynx. 2. Dynamic collapse of the posterior wall of the trachea, as well as all of the airways. 3. Diffuse changes of chronic obstructive bronchitis. DESCRIPTION OF PROCEDURE: After the patient was identified and the above anesthesia given, the fiberoptic bronchoscope was easily passed via the right nares. Hypopharynx was entered and did show redundant soft tissue throughout. Vocal cords did move well. The false cords were somewhat redundant, as well. The trachea was entered. Diffuse changes of chronic bronchitis were noted throughout the entire tracheobronchial tree. There was significant dynamic collapse of the membranous portion of the trachea. The daiana was sharp and did move. Both mainstem bronchi widely patent. The right lung entered first. Upper middle and lower lobes easily identified. There were some secretions noted but were suctioned clear. Again, diffuse dynamic collapse was noted. The left lung was then entered. Upper and lower lobes easily identified, widely patent. Again, diffuse dynamic collapse and diffuse change of chronic bronchitis were noted but no focal endobronchial or mucosal abnormalities were identified. Attention was then returned to the right. The right middle lobe was entered and at least to the second generation of subsegmental bronchial airway to be seen. No focal endobronchial abnormality was identified. In the medial most subsegments, cytology brushes were passed, and the airway was vigorously lavaged. Biopsies were not taken since there was no obvious abnormality able to be seen. No significant bleeding was encountered. The scope was soon withdrawn and procedure terminated. Oxygen saturation remained greater than 90% throughout the examination. The patient was taken to the recovery room in good and stable condition. No immediate complications of conscious sedation were identified.
--- NOTE | 2018-05-20 13:24 | REP ---
Oral chest x-ray: Single view. History: Post bronchoscopy. Rule out pneumo. Comparison chest x-ray: January 01, 2017. Findings: There are increased markings in the lung bases bilaterally consistent with fibrosis and/or discoid atelectasis. There is no evidence of pneumothorax or hydrothorax. Cardiomediastinal silhouette is unremarkable and unchanged. Impression: No complication seen. Electronically Signed by Josué Barrera MD 05/20/2018 01:16 P
[2018-05-20 13:44] VITALS: BP 149/75
== END 2018-05-20 13:49 | disposition home or self-care (01) ==
LOC: M OPP 10:16
PROVIDERS: ATTEND Internal Medicine Pulmonary Disease
DX: J39.8 Other specified diseases of upper respiratory tract (principal); J44.9 Chronic obstructive pulmonary disease, unspecified; R91.1 Solitary pulmonary nodule; G47.33 Obstructive sleep apnea (adult) (pediatric); J96.11 Chronic respiratory failure with hypoxia; F17.218 Nicotine dependence, cigarettes, with other nicotine-induced disorders
CPT/HCPCS: 31623; 31624; 71045; 87070; 87077; 87102; 87116; 87186; 87205; 87206; 88104; J1100; J2250; J2405; J3010

== ENCOUNTER → 2018-05-27 | Outpatient (REF) | payer MEDICARE, MEDICAID ==
[~2018-05-27] MED LIST changes: -D5W 1,000 ML IV SCH; -ONDANSETRON 4MG/2ML VIAL (J2405) As Ordered ONE; -PROPOFOL 200 MG/20 ML VIAL As Ordered ONE; -dexameTHASONE 4 MG/ML 1ML VIAL (J1100) As Ordered ONE; -fentaNYL 100 MCG/2 ML INJECTION (J3010) As Ordered ONE
[2018-05-27 17:32] LABS: INR 0.95; PROTHROMBIN TIME 12.8 SECONDS (12.1-14.4)
== END ==
LOC: M LAB REF 16:29
PROVIDERS: ATTEND Internal Medicine Pulmonary Disease
DX: R91.1 Solitary pulmonary nodule (principal)

== ENCOUNTER → 2018-06-09 | Outpatient (CLI) | payer MEDICARE, MEDICAID ==
--- NOTE | 2018-06-09 10:52 | REP ---
CT of the chest without IV contrast: Comparisons are 05/05/2018 and 05/01/2011. There is a two point a centimeter mass-like density versus consolidative infiltrate superomedially in the right middle lobe, similar to 05/05/2018 but not present on 05/01/2011. There is linear stranding and atelectasis peripheral to this lesion, unchanged. There are no other nodules, infiltrates or pleural effusions. There is no mediastinal lymph node enlargement. In the absence of IV contrast the study is insensitive for hilar lymph node enlargement. There is no axillary lymph node enlargement. The thoracic aorta is unremarkable. Cardiac size is normal. The visualized upper abdominal contents are unremarkable. There is no adrenal mass. Impression: Right middle lobe mass versus consolidative infiltrate as described. Electronically Signed by Henrry Jackson MD 06/09/2018 10:43 A
== END ==
LOC: M RAD 09:01
PROVIDERS: ATTEND Internal Medicine Pulmonary Disease
DX: R91.1 Solitary pulmonary nodule (principal)

== ENCOUNTER → 2018-06-15 | Outpatient (CLI) | payer MEDICARE, MEDICAID ==
--- NOTE | 2018-06-16 20:44 | REP ---
Whole body PET CT scanning: The studies performed for evaluation of a right middle lobe lung nodule identified on a lung screening CT dated [birth year]/1928 teen and again on a chest CT dated 06/09/2018. Whole-body scanning is performed from skull base to the upper thighs. Chest and supraclavicular areas: There are no hypermetabolic foci. Chest: The known right middle lobe lung nodule is again identified on the CT scan. The nodule is hypermetabolic with a maximal standard uptake value of 4.2. There are no other foci in the chest. Abdomen, pelvis and thighs: There is hypermetabolic uptake at the gastroesophageal junction with a maximal standard uptake value of 6.9. There is hypermetabolic uptake in the duodenal bulb with a maximal standard uptake value of 5.7. There are no other foci in the abdomen, pelvis or upper thighs. Impression: The known right middle lobe lung nodule is hypermetabolic. There is a hypermetabolic focus at the gastroesophageal junction. There is a hypermetabolic focus in the duodenal bulb. No other foci are identified. The study is performed with 8.49 mCi of F 18 FDG. Electronically Signed by Henrry Jackson MD 06/16/2018 08:35 P
== END ==
LOC: M PLARAD 12:24
PROVIDERS: ATTEND Internal Medicine Pulmonary Disease
DX: R91.1 Solitary pulmonary nodule (principal)
CPT/HCPCS: 78815; A9552

== ENCOUNTER 2018-06-17 09:25 | Day surgery (SDC) | payer MEDICARE, MEDICAID ==
[~2018-06-17] VITALS: Ht 149.9 cm; Wt 96.1 kg
[~2018-06-17 09:25] MED LIST changes: +LIDOCAINE 1% MDV 20ML VIAL SQ PRN; +LR 1,000 ML IV SCH
[2018-06-17] MEDS ORDERED: LIDOCAINE VISCOUS 2% SOLN 15ML UDC As Ordered ONE (10:51)
[2018-06-17] MEDS ORDERED: THROMBIN SOLN 5,000 UNITS VIAL As Ordered ONE (10:51)
[2018-06-17] MEDS ORDERED: LIDOCAINE 1% SDV INJ 30 ML VIAL As Ordered ONE (10:51)
[2018-06-17] MEDS ORDERED: EPINEPHrine 1MG/10ML SYRINGE 1.5IN As Ordered ONE (10:51)
[2018-06-17] MEDS ORDERED: LIDOCAINE 4% TOPICAL SOLN 50 ML BTL As Ordered ONE (10:52)
[2018-06-17] MEDS ORDERED: CETACAINE SPRAY 5GM As Ordered ONE (10:52)
[2018-06-17] MEDS ORDERED: dexameTHASONE 4 MG/ML 1ML VIAL (J1100) As Ordered ONE (10:59)
[2018-06-17] MEDS ORDERED: ROCURONIUM BROMIDE 50 MG/5 ML VIAL As Ordered ONE (10:59)
[2018-06-17] MEDS ORDERED: MIDAZOLAM INJ 2 MG/2 ML VIAL (J2250) As Ordered ONE (10:59)
[2018-06-17] MEDS ORDERED: PROPOFOL 200 MG/20 ML VIAL As Ordered ONE (10:59)
[2018-06-17] MEDS ORDERED: fentaNYL 100 MCG/2 ML INJECTION (J3010) As Ordered ONE (10:59)
[2018-06-17] MEDS ORDERED: LIDOCAINE 2% INJ 100 MG/5 ML SDV (FOR ANES.) As Ordered ONE (10:59)
[2018-06-17] MEDS ORDERED: PHENYLephrine HCL 500 MCG/5 ML (100MCG/ML) SYRINGE (J2370) As Ordered ONE (11:30)
[2018-06-17] MEDS ORDERED: ePHEDrine SULFATE 25 MG/5 ML(5MG/ML) SYRINGE As Ordered ONE (11:46)
[2018-06-17] MEDS ORDERED: ONDANSETRON 4MG/2ML VIAL (J2405) As Ordered ONE (11:56)
[2018-06-17] MEDS ORDERED: GLYCOPYRROLATE INJ 0.2 MG/ML 2 ML VIAL As Ordered ONE (11:57)
[2018-06-17] MEDS ORDERED: NEOSTIGMINE 10 MG/10 ML VIAL (J2710) As Ordered ONE ×2 (11:57→11:58)
[2018-06-17] MEDS ORDERED: LR 1,000 ML IV SCH (12:30)
[2018-06-17] MEDS ORDERED: MEPERIDINE INJ 25 MG/ML VIAL (J2175) IV PRN (12:30)
[2018-06-17] MEDS ORDERED: PERCOCET 5MG/325MG TAB PO PRN (12:30)
[2018-06-17] MEDS ORDERED: fentaNYL 100 MCG/2 ML INJECTION (J3010) IV PRN (12:30)
[2018-06-17] MEDS ORDERED: METOCLOPRAMIDE INJ 10MG/2ML VIAL (J2765) IV PRN (12:30)
[2018-06-17] MEDS ORDERED: ONDANSETRON 4MG/2ML VIAL (J2405) IV PRN (12:30)
--- NOTE | 2018-06-17 13:48 | REP ---
Chest one-view HISTORY: Postop Comparison: 05/20/2018 An increase in interstitial markings is present in the lower lobes consistent with chronic interstitial fibrosis. Patchy density is present in the right lower lobe consistent with atelectasis or infiltrate. The heart is normal in size. The pulmonary vasculature is normal in appearance. Impression: 1. Bibasilar chronic interstitial fibrosis. 2. Right lower lobe atelectasis or infiltrate. Electronically Signed by Jason Tristan MD 06/17/2018 01:40 P
[2018-06-17 14:15] VITALS: BP 139/63
--- NOTE | 2018-06-18 06:04 | RO ---
DATE OF PROCEDURE: 06/17/2018 PREPROCEDURE DIAGNOSIS: Right middle lobe nodule. POSTPROCEDURE DIAGNOSIS: Right middle lobe nodule with chronic obstructive bronchitis. PROCEDURE: Fiberoptic bronchoscopy under electromagnetic navigational assistance with fluoroscopy. SURGEON: Dr. Fernando Daniels. BIAS CUTTING MACHINE OPERATOR VERTICAL: ANESTHESIA: General. Other medications were 5000 units topical Thrombin given via bronchoscope. ESTIMATED BLOOD LOSS: Informed consent was obtained prior to the procedure. After the patient was identified and put under general anesthesia, the fiberoptic bronchoscope was easily passed via the existing endotracheal tube. Tube was found to be in good position. Cursory examination of the right and left lung were performed. Diffuse change of chronic bronchitis with some retained secretions were encountered and all suctioned clear. The electromagnetic navigational portion of the procedure was then begun. After satisfactory registration, the scope was navigated to the lesion in question. Cytology brushes as well as multiple biopsies and Gentec times two were all taken. A large amount of satellite debris was obtained. The area was then lavaged. Only minimal bleeding was encountered but topical thrombin was placed anyway. All biopsies and brushes were done under fluoroscopic guidance. The scope with then withdrawn and the procedure terminated. Fluoroscopic exam done immediately postprocedure showed no evidence of pneumothorax. Chest x-ray is ordered for 1 hour postprocedure. No significant hemodynamic instability or oxygen saturation issues were noted during the procedure.Care was then turned over to the anesthesia department for extubation. No immediate complications of the procedure were identified. [facility]
== END 2018-06-17 14:24 | disposition home or self-care (01) ==
LOC: M SDC 09:25
PROVIDERS: ATTEND Internal Medicine Pulmonary Disease
DX: C34.2 Malignant neoplasm of middle lobe, bronchus or lung (principal); J44.9 Chronic obstructive pulmonary disease, unspecified; J96.11 Chronic respiratory failure with hypoxia; C67.9 Malignant neoplasm of bladder, unspecified; E11.51 Type 2 diabetes mellitus with diabetic peripheral angiopathy without gangrene; G47.33 Obstructive sleep apnea (adult) (pediatric); F17.210 Nicotine dependence, cigarettes, uncomplicated; I25.10 Atherosclerotic heart disease of native coronary artery without angina pectoris; Z98.61 Coronary angioplasty status; I73.9 Peripheral vascular disease, unspecified
CPT/HCPCS: 31623; 31627; 31628; 31629; 71045; 76000; 87070; 87077; 87102; 87116; 87186; 87205; 87206; 88104; 88173; 88305; 88313; 88341; 88342; A4648; J1100; J2250; J2370; J2405; J2710; J3010

== ENCOUNTER → 2018-07-28 | Outpatient (CLI) | payer MEDICARE, MEDICAID ==
[~2018-07-28] MED LIST changes: -/ACETCOD2T PO; -/ESOM40CA OR; -/MOM400 OR; -/PANT40TA; -/SALMDISK IN; -/TIOT18INH; -/TIOT18INH INH; -/WARF25TA OR; +ACET1TAB15 PO; -ASPI1TAB PO; +ASPI81TA26 PO; +CIPR500T39 PO; +COUM1TAB18 OR; -LIDOCAINE 1% MDV 20ML VIAL SQ PRN; +LISI-1046 PO; -LISI2.5T5 PO; -LR 1,000 ML IV SCH; +MILK10SU OR; +NEXI1CAP3 OR; +PROT1TAB2; +SERE1AER IN; +SPIR1CAP
--- NOTE | 2018-07-28 13:13 | REPMRS ---
Patient History The patient states she had a clinical breast exam in 07/2018. Patient has history of bladder cancer at age 64 and had previous chemotherapy. Lung cancer at age 68. Family history of breast cancer in mother. 3D TOMOSYNTHESIS WAS PERFORMED. Digital Woman Screen Mammo: July 28, 2018 - Exam #: [id number] Bilateral CC and MLO view(s) were taken. Technologist: Mary Redding, Technologist Prior study comparison: July 10, 2017, digital woman screen mammo performed at [facility]. March 06, 2015, digital woman screen mammo performed at [facility]. FINDINGS: There are scattered fibroglandular densities. There has been no change in the appearance of the mammogram from the prior studies. There is a mild amount of residual fibroglandular tissue which is fairly symmetric. There is no interval development of dominant mass, architectural distortion, or clustered microcalcification suggestive of malignancy. Assessment: BI-RADS/ACR category 1 mammogram. Negative Mammogram. Recommendation Routine screening mammogram in 1 year (for women over age 40). This mammogram was interpreted with the aid of an FDA-approved computer-aided dectection system. Electronically Signed By: Henrry Yap MD 07/28/18 [id number]
== END ==
LOC: M WHC 11:42
PROVIDERS: ATTEND Nurse Practitioner Family
DX: Z12.31 Encounter for screening mammogram for malignant neoplasm of breast (principal); Z85.51 Personal history of malignant neoplasm of bladder; Z85.118 Personal history of other malignant neoplasm of bronchus and lung; Z92.21 Personal history of antineoplastic chemotherapy; Z80.3 Family history of malignant neoplasm of breast
CPT/HCPCS: 77063; 77067; G0463

== ENCOUNTER → 2018-08-02 | Outpatient (REF) | payer MEDICARE, MEDICAID | LOC: M SMT 12:43 | PROVIDERS: ATTEND Urology | DX: C67.9 Malignant neoplasm of bladder, unspecified (principal) ==

== ENCOUNTER → 2018-08-26 | Outpatient (CLI) | payer MEDICARE, MEDICAID ==
[~2018-08-26] MED LIST changes: +ISOVUE-370 76% 100ML VIAL (Q9967) As Ordered ONE
--- NOTE | 2018-08-27 04:31 | REP ---
Clinical: Bladder cancer. Technique: Axial contrast enhanced images from the lung bases to the pubic symphysis using 100 ml Isovue 370 intravenous contrast material with precontrast and delayed images of the abdomen as well as coronal and sagittal re-formations. Comparison: 02/14/2015. Findings: Lung bases demonstrate ill-defined, incompletely evaluated area of somewhat linear/nodular opacity along the medial right middle lobe with adjacent fibrosis/interstitial changes as well as 1.2 cm noncalcified nodule in the lingula and 1.6 cm noncalcified nodule in the deep medial right lower lobe (image 17). Liver, spleen, pancreas, and bilateral adrenal glands are normal. The kidneys demonstrate mild cortical chronic age-related changes along with mild symmetric chronic-appearing perinephric stranding and few scattered small hypodensities which remain stable and delayed images and likely represent cysts measuring up to 1.6 cm. The enteric system is without obvious acute finding despite the recent PET/CT which demonstrated hypermetabolic focus at the gastroesophageal junction and duodenal bulb which are not particularly prominent or abnormal by CT evaluation. Scattered colonic diverticula noted without acute diverticulitis. Normal terminal ileum and appendix identified in the right lower quadrant. Evaluation of the pelvis is somewhat limited due to beam-hardening artifact from bilateral hip replacements and evaluation of the pelvic structures is incomplete despite images obtained using artifact reducing techniques. No obvious ascites. No obvious intraperitoneal or retroperitoneal adenopathy. Atherosclerotic changes to the aorta and vasculature noted without aneurysm or dissection. Visualized musculoskeletal structures demonstrate degenerative changes without focal osseous abnormality. Impression: 1. Pulmonary parenchymal findings as described above remains similar to chest CT dated 06/09/2018 and are concerning for active disease including malignancy/metastatic disease. 2. Renal hypodensities remain stable and likely represent cysts. 3. Abnormalities on recent PET CT involving the gastroesophageal junction and duodenum are not identified by current CT and may warrant further investigation including endoscopy and/or fluoroscopic evaluation. 4. Incomplete evaluation of the pelvis. 5. Chronic nonacute changes as described above. Electronically Signed by José Miguel Kay MD 08/27/2018 04:23 A
== END ==
LOC: M RAD 08:05
PROVIDERS: ATTEND Urology
DX: C67.9 Malignant neoplasm of bladder, unspecified (principal); R82.8 Abnormal findings on cytological and histological examination of urine; R91.8 Other nonspecific abnormal finding of lung field; N28.89 Other specified disorders of kidney and ureter
CPT/HCPCS: 74178; Q9967

== ENCOUNTER → 2018-08-30 | Outpatient (CLI) | payer MEDICARE, MEDICAID ==
[~2018-08-30] MED LIST changes: -ISOVUE-370 76% 100ML VIAL (Q9967) As Ordered ONE
[2018-08-30 10:19] LABS: HEMATOCRIT 38.3 % (36.0-47.0); HEMOGLOBIN 11.9 g/dl (12.0-15.5); MEAN CORPUSCULAR HEMOGLOBIN 27.3 pg (27.0-33.0); MEAN CORPUSCULAR HGB CONC 31.1 g/dl (32.0-36.5); MEAN CORPUSCULAR VOLUME 87.8 fl (80.0-96.0); PLATELET COUNT, AUTOMATED 232 10^3/uL (150-450); RED BLOOD COUNT 4.36 10^6/uL (4.00-5.40); WHITE BLOOD COUNT 6.1 10^3/uL (4.0-10.0)
[2018-08-30 10:46] LABS: HEMOGLOBIN A1c 6.8 %
[2018-08-30 10:46] LABS: ALBUMIN 3.5 GM/DL (3.2-5.2); ALT/SGPT 16 U/L (12-78); BILIRUBIN,TOTAL 0.4 MG/DL (0.2-1.0); BLOOD UREA NITROGEN 11 MG/DL (7-18); CALCIUM LEVEL 8.8 MG/DL (8.8-10.2); CARBON DIOXIDE LEVEL 30 MEQ/L (21-32); CHLORIDE LEVEL 105 MEQ/L (98-107); CHOLESTEROL LEVEL 142 MG/DL (<200); CPK CREATINE PHOSPHOKINASE 75 U/L (26-192); GLOMERULAR FILTRATION RATE > 60.0 (>39); GLUCOSE, FASTING 106 MG/DL (70-100); HDL CHOLESTEROL 52 MG/DL (>40); LDL CHOLESTEROL 58 MG/DL (<100); NON-HDL-C 90 MG/DL; POTASSIUM SERUM 4.2 MEQ/L (3.5-5.1); SODIUM LEVEL 140 MEQ/L (136-145); TOTAL PROTEIN 6.3 GM/DL (6.4-8.2); TRIGLYCERIDES LEVEL 162 MG/DL (<150)
[2018-08-30 11:01] LABS: CREATININE, URINE 66.3 MG/DL; MALB URINE SIEMENS 17.7 MG/L; MAU/CREAT RATIO 26.6 MCG/MG (0.0-30.0)
== END ==
LOC: M LAB 09:01
PROVIDERS: ATTEND Nurse Practitioner Family
DX: I10 Essential (primary) hypertension (principal); E78.5 Hyperlipidemia, unspecified; E11.9 Type 2 diabetes mellitus without complications

== ENCOUNTER 2018-09-22 10:27 | Day surgery (SDC) | payer MEDICARE, MEDICAID ==
[~2018-09-22] VITALS: Ht 149.9 cm; Wt 94.7 kg
[~2018-09-22 10:27] MED LIST changes: +NS 1,000 ML IV ONE
[2018-09-22] MEDS ORDERED: PROPOFOL 200 MG/20 ML VIAL As Ordered ONE (10:35)
[2018-09-22] MEDS ORDERED: LIDOCAINE 2% INJ 100 MG/5 ML SDV (FOR ANES.) As Ordered ONE (10:36)
[2018-09-22] MEDS ORDERED: fentaNYL 100 MCG/2 ML INJECTION (J3010) As Ordered ONE (11:36)
[2018-09-22] MEDS ORDERED: MIDAZOLAM INJ 2 MG/2 ML VIAL (J2250) As Ordered ONE (12:20)
--- NOTE | 2018-09-22 12:35 | ROOR ---
Patient Name: Meena Lerma Procedure Date: 09/22/2018 12:16 PM Date of : 1950 Age: 68 Room: [facility] Gender: Female Note Status: Finalized Procedure: Upper Endoscopy + Biopsies Indications: Abnormal PET scan of the GI tract Providers: Feliciano Petersen MD Referring MD: GARCIA PRYOR NP Requesting Provider: Medicines: Monitored Anesthesia Care Complications: No immediate complications. Procedure: Pre-Anesthesia Assessment: - The heart rate, respiratory rate, oxygen saturations, blood pressure, adequacy of pulmonary ventilation, and response to care were monitored throughout the procedure. The Endoscope was introduced through the mouth, and advanced to the second part of duodenum. The upper GI endoscopy was accomplished without difficulty. The patient tolerated the procedure well. Findings: The Z-line was irregular and was found 40 cm from the incisors. Non-severe esophagitis with no bleeding was found 40 cm from the incisors. Biopsies were taken with a cold forceps for histology. No other significant abnormalities were identified in a careful examination of the stomach. The exam of the duodenum was otherwise normal. Impression: - Z-line irregular, 40 cm from the incisors. - Non-severe reflux esophagitis. Rule out Bernal's esophagus. Biopsied. - The examination was otherwise normal. Recommendation: - Await pathology results. - Discharge patient to home. - Follow an antireflux regimen. - Continue present medications. - Await pathology results. - Telephone GI clinic for pathology results in 1 week. - Return to referring physician. - The findings and recommendations were discussed with the patient's family. Feliciano Petersen MD Feliciano Petersen MD 09/22/2018 12:34:57 PM Electronically signed by Feliciano Petersen MD Number of Addenda: 0 Note Initiated On: 09/22/2018 12:16 PM Estimated Blood Loss: Estimated blood loss: none.
[2018-09-22 13:02] VITALS: BP 133/66
== END 2018-09-22 13:15 | disposition home or self-care (01) ==
LOC: M OPP 10:27
PROVIDERS: ATTEND Internal Medicine Gastroenterology
DX: K22.8 Other specified diseases of esophagus (principal); K21.0 Gastro-esophageal reflux disease with esophagitis; R93.3 Abnormal findings on diagnostic imaging of other parts of digestive tract
CPT/HCPCS: 43239; 88305; J2250; J3010

== ENCOUNTER → 2018-10-12 | Outpatient (CLI) | payer MEDICARE, MEDICAID ==
[~2018-10-12] MED LIST changes: +GASTROGRAFIN SOLUTION 30ML (Q9963) As Ordered ONE; +ISOVUE-370 76% 100ML VIAL (Q9967) As Ordered ONE; -NS 1,000 ML IV ONE; +PRED10TA2 PO
--- NOTE | 2018-10-13 09:22 | REP ---
CT of the chest with IV contrast: Comparisons are chest CT studies dated 05/05/2018 and 06/09/2018. There is a focal mass-like density in the medial segment right middle lobe today measuring up to 3.2 cm in diameter. This measured 2.6 cm on 05/05/2018 and 2.8 cm on 06/09/2018. Additionally, there is an extension anteriorly from this mass that has increased in size today measuring 3.9 x 1.3 cm. This measured three-point 4 x 0.4 cm on 05/05/1928 and 3.6 x 0.9 cm on 06/09/2018. Additionally there is a nodule inferiorly in the lingula on image 66 measuring 11 mm. This measured 11 ml on both prior studies. There is a zone of atelectasis/scarring anteriorly in the right middle lobe, unchanged from both prior studies. There are no other masses or nodules rates or effusions. There is no mediastinal, hilar or axillary lymph node enlargement. The thoracic aorta is unremarkable except for occasional calcified atheroma. Cardiac size is normal. There is calcified atheroma in the coronary arteries. No lytic, blastic or destructive skeletal changes are identified. There is multilevel degenerative disc disease throughout the thoracic spine. Impression: The patients known mass like density in the right middle lobe has increased in size as discussed. There is a 11 mm nodule inferiorly in the lingula, unchanged from the prior studies. There is focal atelectasis in the right middle lobe, unchanged from the prior studies. There is no adenopathy. Electronically Signed by Henrry Jackson MD 10/13/2018 09:13 A
--- NOTE | 2018-10-13 09:40 | REP ---
CT of the abdomen and pelvis with IV and oral contrast: Comparison is 08/26/2018. There is a mass in the lower lobe of the right lung and a nodule inferiorly in the lingula of the left lung within the visualized lung vargas. Please refer to the chest CT for additional evaluation of these findings. The patient reportedly has a cholecystectomy. There is mild dilatation of the intrahepatic biliary ducts, likely secondary to post cholecystectomy state. The hepatic parenchyma is otherwise homogeneous and unremarkable. The pancreas and spleen are normal size and unremarkable. The patient had hypermetabolic uptake at the gastroesophageal junction and in the duodenal bulb on a PET scan dated 06/15/2018. There is no evidence of mass or other abnormality at the gastroesophageal junction or duodenal bulb by CT today. These areas were also unremarkable. On the prior CT. The adrenals are unremarkable. There are small bilateral renal cortical simple cysts. These are not significantly changed. There are nonobstructive calculi in the lower pole of the left kidney. These are unchanged and may represent vascular atheromatous calcifications. No renal masses are identified. There is no hydronephrosis. The abdominal aorta is unremarkable except for calcified atheroma. There is no periaortic adenopathy or mass. There is no mesenteric adenopathy. No ascites. There is no bowel distension or obstruction. Pelvis: There are bilateral hip arthroplasties resulting in significant beam-hardening artifact obscuring visualization, as previously. No adenopathy or ascites are identified in the visualized portion of the pelvis. The bladder is obscured. The pelvic bowel loops are obscured. There are no lytic, blastic or destructive skeletal changes are identified. There is advanced degenerative disc disease throughout the lumbar spine. There is a bone cyst inferiorly in the L4 vertebral body, unchanged from 02/14/2015. Impression: The bladder is obscured from beam hardening artifact secondary to bilateral hip arthroplasties and cannot be evaluated by CT. There are bilateral simple renal cortical cysts. There are left renal nonobstructive calculi, likely atheromatous calculi. There is no hydronephrosis. There are no solid renal masses. There is no adenopathy or ascites. There is mild intrahepatic biliary duct dilatation, likely secondary to post cholecystectomy state. Electronically Signed by Henrry Jackson MD 10/13/2018 09:31 A
== END ==
LOC: M RAD 16:43
PROVIDERS: ATTEND Internal Medicine Medical Oncology
DX: C34.90 Malignant neoplasm of unspecified part of unspecified bronchus or lung (principal)
CPT/HCPCS: 71260; 74177; Q9963; Q9967

== ENCOUNTER → 2018-12-06 | Outpatient (REF) | payer MEDICARE, MEDICAID, OTHER ==
[~2018-12-06] MED LIST changes: +CYAN100049 PO; -GASTROGRAFIN SOLUTION 30ML (Q9963) As Ordered ONE; -ISOVUE-370 76% 100ML VIAL (Q9967) As Ordered ONE; -VITA10002 PO
== END ==
LOC: M SMT 13:05
PROVIDERS: ATTEND Urology
DX: Z85.51 Personal history of malignant neoplasm of bladder (principal)

== ENCOUNTER → 2018-12-28 | Outpatient (CLI) | payer MEDICARE, MEDICAID ==
[~2018-12-28] MED LIST changes: +ISOVUE-370 76% 100ML VIAL (Q9967) As Ordered ONE
--- NOTE | 2018-12-28 11:06 | REP ---
Clinical: Lung cancer for restaging. Technique: Axial contrast enhanced images from the thoracic inlet to the upper abdomen with coronal and sagittal re-formations using 100 ml Isovue 370 intravenous contrast material. Comparison: 10/12/2018. Findings: Ill-defined area of mass / consolidation involving the middle lobe is difficult to quantify, but appears slightly increased when compared to prior examination and measures roughly 6.2 x 3.2 x 2.2 cm maximal diameter and previously measured approximately 4.8 x 2.1 x 2.0 cm at a similar level. Small scattered similar areas of opacity within the right lower lobe are also identified which measure up to approximately 2.1 cm and within the lingula which measures 1.1 cm. No effusion. No pneumothorax. No significant mediastinal or hilar adenopathy is appreciated. Atherosclerotic changes to the thoracic aorta and coronary arteries noted without aortic aneurysm or cardiomegaly. No pericardial effusion. Surrounding musculoskeletal structures are intact. Limited upper abdomen demonstrates normal bilateral adrenal glands and stable 1.7 cm upper pole right renal cyst. Impression: 1. Most prominent area of ill-defined mass / consolidation in the middle lobe appears slightly increased from prior examination. Small area of opacity at the lingula remains stable, and small scattered areas of opacity in the right lower lobe have a slightly varied appearance when compared to prior examination with possible slight increase. 2. No associated adenopathy. No pleural effusion. Electronically Signed by José Miguel Kay MD 12/28/2018 10:58 A
== END ==
LOC: M RAD 08:59
PROVIDERS: ATTEND Nurse Practitioner Family
DX: C34.2 Malignant neoplasm of middle lobe, bronchus or lung (principal)
CPT/HCPCS: 71260; Q9967

== ENCOUNTER → 2019-04-05 | Outpatient (CLI) | payer MEDICARE, MEDICAID ==
[~2019-04-05] MED LIST changes: -ISOVUE-370 76% 100ML VIAL (Q9967) As Ordered ONE
--- NOTE | 2019-04-06 10:43 | REP ---
PET/CT: HISTORY: Restaging lung cancer. There is apparently also a remote prior history of bladder carcinoma. The lung cancer diagnosis was in a right middle lobe nodule and treated with SBRT. Rise in CEA level. COMPARISONS: Comparison PET/CT study June 15, 2018. Most recent chest CT study is from December 28, 2018. TECHNIQUE: 58 minutes following the intravenous injection of a 9.23 mCi dose of F-18 FDG, three-dimensional PET scintigraphy is acquired from the skull base to the proximal thighs. Triplanar noncontrast CT scanning is acquired through the same anatomic range for attenuation correction, and image registration with scan parameters optimized to minimize radiation exposure to the patient. PET scintigraphy and CT datasets were fused and displayed on a workstation with multiplanar and projection display capability. PET/CT FINDINGS: Head and neck uptake is unremarkable. There is no longer hypermetabolic uptake in the treated right middle lobe pulmonary nodule or in the adjacent fibrotic reaction. Maximum standard uptake value in this tissue is 2.08. Previously, this was 4.15. There is no abnormal uptake in the lingular nodular density, maximum SUV 1.08. There is a 1.7 cm nodule in the right middle lobe medial basal segment, quite inferiorly. This is visible in retrospect on recent chest CT studies. It does not show observable metabolic activity. Maximum SUV value is 1.8. There is no evidence of hilar or mediastinal hypermetabolic giselle uptake. In the abdomen and pelvis normal distribution of tracer is seen. No abnormal uptake is seen. IMPRESSION: There is no abnormal hypermetabolic uptake in the treated right middle lobe malignancy. No other abnormal intrathoracic hypermetabolic uptake is seen. No abnormal hypermetabolic uptake seen in the neck or below the diaphragms. Electronically Signed by Josué Barrera MD 04/06/2019 05:38 P
== END ==
LOC: M PLARAD 12:32
PROVIDERS: ATTEND Internal Medicine Medical Oncology
DX: C34.2 Malignant neoplasm of middle lobe, bronchus or lung (principal)
CPT/HCPCS: 78815; A9552

== ENCOUNTER 2019-06-02 12:23 | Inpatient (IN) | payer MEDICARE, MEDICAID ==
[~2019-06-02] VITALS: Ht 149.9 cm; Wt 99.7 kg
[~2019-06-02 12:23] MED LIST changes: +LevoFLOXacin 750 MG TABLET PO SCH
[2019-06-02] MEDS ORDERED: POTA20TA6 PO (12:46)
[2019-06-02] MEDS ORDERED: OYSCTAB PO (12:46)
[2019-06-02 13:27] LABS: VENOUS BASE EXCESS 5.4 (-2.0-2.0); VENOUS HCO3 32.1 MEQ/L (23.0-27.0); VENOUS O2 SATURATION 80.5 % (60.0-80.0); VENOUS PARTIAL PRESSURE CO2 55.3 mmHg (38.0-50.0); VENOUS PARTIAL PRESSURE O2 46.1 mmHg (30.0-50.0); VENOUS PH 7.381 UNITS (7.330-7.430); VENOUS STANDARD HCO3 28.9 MEQ/L; VENOUS TOTAL CO2 33.8 MEQ/L (24.0-28.0)
[2019-06-02 13:32] LABS: BASO # 0.1 10^3/uL (0.0-0.2); BASO % 0.6 % (0.0-1.0); EOS % 0.2 % (0.0-3.0); HEMATOCRIT 42.2 % (36.0-47.0); HEMOGLOBIN 13.3 g/dl (12.0-15.5); LYMPH % 6.2 % (24.0-44.0); MEAN CORPUSCULAR HEMOGLOBIN 26.6 pg (27.0-33.0); MEAN CORPUSCULAR HGB CONC 31.5 g/dl (32.0-36.5); MEAN CORPUSCULAR VOLUME 84.4 fl (80.0-96.0); MONO # 0.7 10^3/uL (0.0-0.8); NEUTROPHILS # 14.3 10^3/uL (1.5-8.5); NEUTROPHILS % 85.9 % (36.0-66.0); PLATELET COUNT, AUTOMATED 276 10^3/uL (150-450); WHITE BLOOD COUNT 16.7 10^3/uL (4.0-10.0)
[2019-06-02 13:44] LABS: INR 1.04; PROTHROMBIN TIME 13.3 SECONDS (11.8-14.0)
--- NOTE | 2019-06-02 13:47 | REP ---
PORTABLE CHEST X-RAY: Single view. HISTORY: Dyspnea and cough. COMPARISON CHEST X-RAY: June 17, 2018. FINDINGS: There are linear opacities in the bases bilaterally, right greater than left consistent with fibrosis and/or atelectasis. These are similar to the appearance on the prior study. No acute infiltrate is seen. Pleural angles are sharp. Heart size is normal. Pulmonary vasculature is not increased. IMPRESSION: Bibasilar linear fibrosis versus atelectasis, chronic. No acute infiltrate. Electronically Signed by Josué Barrera MD 06/02/2019 02:40 P
[2019-06-02] MEDS ORDERED: IPRATROPIUM 0.5MG/ALBUTEROL 2.5MG INH SOL UD 3ML (DUONEB)(J7620) NEB ONE (14:00)
[2019-06-02 14:08] LABS: ALT/SGPT 20 U/L (12-78); BLOOD UREA NITROGEN 19 MG/DL (7-18); CALCIUM LEVEL 8.9 MG/DL (8.8-10.2); CARBON DIOXIDE LEVEL 32 MEQ/L (21-32); CHLORIDE LEVEL 90 MEQ/L (98-107); CPK CREATINE PHOSPHOKINASE 62 U/L (26-192); CREATININE FOR GFR 1.06 MG/DL (0.55-1.30); GLOMERULAR FILTRATION RATE 54.4 (>39); GLUCOSE, FASTING 132 MG/DL (70-100); POTASSIUM SERUM 3.6 MEQ/L (3.5-5.1); SODIUM LEVEL 133 MEQ/L (136-145)
[2019-06-02 14:09] LABS: ALBUMIN 3.5 GM/DL (3.2-5.2); BILIRUBIN,DIRECT 0.2 MG/DL (0.0-0.2); BILIRUBIN,TOTAL 0.6 MG/DL (0.2-1.0); CK-MB VALUE MASS 2.9 NG/ML (<3.6); MB/CK RELATIVE INDEX 4.68 (< OR =4); NT-PRO BNP 293 PG/ML (<125); TOTAL PROTEIN 6.6 GM/DL (6.4-8.2); TROPONIN I < 0.02 NG/ML (< 0.10)
[2019-06-02] MEDS ORDERED: ISOVUE-370 76% 100ML VIAL (Q9967) As Ordered ONE (14:20)
--- NOTE | 2019-06-02 15:00 | REP ---
CT of the chest with IV contrast, CT pulmonary angiography: Comparison is the chest CT dated 2018. The prior study is performed for restaging lung carcinoma. There are no emboli in the pulmonary trunk or central pulmonary arteries. There are no emboli in the pulmonary lobe or segment branches. There is no mediastinal, hilar or axillary lymphadenopathy. There is a linear stranding density in the the right middle lobe medially, similar to the comparison study, compatible with parenchymal scarring. On the prior study there was a 11 mm nodule inferiorly in the lingula. On the study today there is a nodular density inferiorly in the lingula measuring 14 mm. Incorporated into a linear stranding density. This is nonspecific and could represent scarring or progression of the previous nodule. No other nodules are identified. There are no infiltrates or pleural effusions. The thoracic aorta is unremarkable. Cardiac size is normal. No pericardial effusion. In the upper abdomen there is no adrenal mass. I suspect there is cortical atrophy in the visualized upper poles of the kidneys. The visualized hepatic parenchyma, pancreas and spleen are unremarkable. The patient reportedly has a cholecystectomy. Impression: There are no pulmonary emboli. There are no infiltrates or pleural effusions. There is a chronic stable stranding linear density medially in the right middle lobe compatible with scarring. There is a nodule inferiorly in the lingula as described, nonspecific, scarring versus progression of the nodule in the same location seen on the prior study. Electronically Signed by Henrry Jackson MD 06/02/2019 02:51 P
--- NOTE | 2019-06-02 15:15 | REP ---
Duplex extremity venous ultrasound: Bilateral lower extremities. History: Bilateral lower extremity pain and edema. Rule out DVT. Findings: The deep veins are anechoic and fully compressible from the groin to the popliteal fossa in the left and right lower extremity. Color flow imaging is homogeneous. Spectral Doppler interrogation demonstrates intact respiratory variation in flow and normal manual augmentation of flow. There is no evidence of deep vein thrombosis. Impression: Negative bilateral lower extremity duplex venous ultrasound. No evidence of deep vein thrombosis. Electronically Signed by Josué Barrera MD 06/02/2019 03:07 P
[2019-06-02] MEDS ORDERED: methylPREDNISolone INJ 125 MG/2 ML VIAL (J2930) IV ONE (15:30)
--- NOTE | 2019-06-02 15:37 | ECGEPIP ---
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
[2019-06-02 15:56] VITALS: O2SAT 92
[2019-06-02] MEDS ORDERED: LEVO750T13 PO (16:13)
[2019-06-02] MEDS ORDERED: SM LTAB5 PO (16:13)
[2019-06-02] MEDS ORDERED: MAGN400T2 PO (16:13)
[2019-06-02] MEDS ORDERED: FURO40TA2 PO (16:13)
[2019-06-02] MEDS ORDERED: CARV3.12 PO (16:14)
[2019-06-02] MEDS ORDERED: FLUTICASONE PROP 0.05% NASAL SPRAY 16 GM (FLONASE) PRN (17:30)
[2019-06-02] MEDS ORDERED: GLUCOSE 4 GM CHEW TABLET PO PRN (17:30)
[2019-06-02] MEDS ORDERED: GLUCAGON FOR INJ 1 MG VIAL (J1610) SC PRN (17:30)
[2019-06-02] MEDS ORDERED: METOCLOPRAMIDE 5 MG TAB PO PRN (17:30)
[2019-06-02] MEDS ORDERED: ACETAMINOPHEN TAB 650MG DOSE (2X325MG) PO PRN (17:30)
[2019-06-02] MEDS: HumaLOG INSULIN (NovoLOG) PER UNIT SC SCH ×3 (17:30→21:48)
[2019-06-02] MEDS ORDERED: DEXTROSE 50% 50 ML SYRINGE IV PRN (17:30)
[2019-06-02] MEDS ORDERED: IPRATROPIUM 0.5MG/ALBUTEROL 2.5MG INH SOL UD 3ML (DUONEB)(J7620) NEB PRN (17:30)
--- NOTE | 2019-06-02 18:11 | HPEPDOC ---
[facility] Medical History & Physical Date of Admission Jun 02, 2019 Date of Service: Jun 02, 2019 Primary Care Physician: Ashley Deshpande NP [facility] Attending Physician: CASEY ESPINAL MD History and Physical CHIEF COMPLAINT: Shortness of breath HISTORY OF PRESENT ILLNESS: Patient is 69 year old female with a past medical history significant for COPD, on home oxygen at 2 L daily, also uses CPAP machine at night. She presents with complaint of progressively worsening shortness of breath and cough that is without sputum production. Denies any hemoptysis. According to patient, she was diagnosed with pneumonia last week and was started on Levaquin. She saw her PCP today who instructed patient to present to the ED due to worsening shortness of breath, and cough. On initial evaluation, patient is on her current home dose of oxygen, without worsening symptoms. She denies chest pain, denies any worsening edema, denies increased sputum production. Denied headaches, denied dizziness. X-ray and chest CT was unremarkable for lung infiltrates. PAST MEDICAL HISTORY: 2 cardiac stents, COPD, [id number] diabetes, osteoarthritis, chronic sinus problems, hypertension, hyperlipidemia, sleep apnea, history of rib fractures, bilateral rotator cuff tears, upper and lower dentures, GERD, rotator cuff repair, bladder cancer in 2013 (follow with urology), lung cancer status post radiation 2019 PAST SURGICAL HISTORY: Partial hysterectomy, gallbladder removal, carpal tunnel, left foot surgery, bladder suspension, right shoulder cuff tear, cardiac stent, hip replacement bilaterally, TURP procedure, bladder mass removal, colonoscopy in 2019. SOCIAL HISTORY: Patient started smoking at a rate of 1-2 packs per day since age of 13 until 2018, denies alcohol. Denies illicit drugs Father had arthritis, insulin-dependent diabetes, currently disease, mother dece ased, history of breast cancer, one sibling had lung cancer, status post CABG 2, ALLERGIES: Please see below. REVIEW OF SYSTEMS: CONSTITUTIONAL: No fevers, denies chills, positive for weight gain, denies lethargy HEENT: No rhinorrhea, no itchy eyes, no congesion, No tonsilor exudates CARDIOVASCULAR: No murmurs no palpitations and arrhythmias, no chest pain RESPIRATORY: Positive for dry cough, shortness of breath GASTROINTESTINAL: No nausea, no vomiting, no difficulty swallowing, no pain with eating, no diarrhea HEMATOLOGICAL: No bleeding GENITOURINARY:No Issues HEMATOLOGIC/LYMPHATIC: No swelling, No bleeding PE GENERAL APPEARANCE: Alert, obese female, resting comfortably on bed, able to speak full sentences without shortness of breath SKIN: Warm, no bruising LUNGS: Difficult to auscultate due to patient's body habitus, no audible wheezing appreciated, no rhonchi, no rubs, symmetric air movement HEART: Normal S1, S2. No murmurs, no rubs, no gallops ABDOMEN: Obese, nondistended, bowel sounds present, EXTREMITIES: No cyanosis, no deformities, 1+ pitting edema in bilateral upper an d lower extremities HOME MEDICATIONS: Please see below. LABORATORY DATA: See below. IMAGING: CT Chest: There are no pulmonary emboli. There are no infiltrates or pleural effusions. There is a chronic stable stranding linear density medially in the right middle lobe compatible with scarring. There is a nodule inferiorly in the lingula as described, nonspecific, scarring versus progression of the nodule in the same location seen on the prior study. Vascular U/S Negative bilateral lower extremity duplex venous ultrasound. No evidence of deep vein thrombosis. Chest Xray Bibasilar linear fibrosis versus atelectasis, chronic. No acute infiltrate. MICROBIOLOGY: Please see below. ASSESSMENT This is a 69, female with a past medical history significant for COPD, on home oxygen at 2 L daily, also uses CPAP machine at night. Presented for progressive shortness of breath, with cough. She was recently diagnosed with pneumonia last week and started on Levaquin, she will require 2 more doses of Levaquin. Patient admitted for COPD exacerbation secondary to pneumonia and fluid overload PLAN: COPD exacerbation secondary bacterial pneumonia, 2/2 fluid overload -Oxygen supplemental -Lasix 40 mg IV BID -2L fluid restriction -Duo-Nebs PRN -80 mg of Solu-Medrol BID ( Will transition to PO prednisone once pt is out of acute phase) Community acquired pneumonia -CT CHEST: There are no pulmonary emboli, There are no infiltrates or pleural effusions. -Bibasilar linear fibrosis versus atelectasis, chronic. No acute infiltrate -Chest Xray: Bibasilar linear fibrosis versus atelectasis, chronic. No acute infiltrate. -Continue Levaquin therapy She has 2 days remaining NIDDM -Sliding scale insulin CHRISTINE -May use home Cpap HTN -Continue home meds Hyperlipidemia -C/w home meds Lung Cancer -s/p radiation treatment GERD -IV protonix due to steriod use DVT prophylaxis -Lovenox Vital Signs Vital Signs Date Time Temp Pulse Resp B/P (MAP) Pulse Ox O2 Delivery O2 Flow Rate FiO2 06/02/19 15:56 92 Nasal Cannula 06/02/19 15:50 96.1 97 24 104/72 (83) 2.0 Laboratory Data Labs 24H Laboratory Tests 2 06/02/19 13:10: Immature Granulocyte % (Auto) 3.1H, Neutrophils (%) (Auto) 85.9H, Lymphocytes (%) (Auto) 6.2L, Monocytes (%) (Auto) 4.0, Eosinophils (%) (Auto) 0.2, Basophils (%) (Auto) 0.6, Neutrophils # (Auto) 14.3H, Lymphocytes # (Auto) 1.0L, Monocytes # (Auto) 0.7, Eosinophils # (Auto) 0.0, Basophils # (Auto) 0.1, Nucleated Red Blood Cells % (auto) 0.0, Prothrombin Time 13.3, Prothromb Time International Ratio 1.04, Blood Gas Bicarbonate Standard 28.9, Venous Blood pH 7.381, Venous Blood Partial Pressure CO2 55.3H, Venous Blood Partial Pressure O2 46.1, Venous Blood Total Carbon Dioxide 33.8H, Venous Blood HCO3 32.1H, Venous Blood Oxygen Saturation 80.5H, Venous Blood Base Excess 5.4H, Anion Gap 11, Glomerular Filtration Rate 54.4, Calcium Level 8.9, Total Bilirubin 0.6, Direct Bilirubin 0.2, Aspartate Amino Transf (AST/SGOT) 6L, Alanine Aminotransferase (ALT/SGPT) 20, Alkaline Phosphatase 65, Total Creatine Kinase 62, Creatine Kinase MB 2.9, Creatine Kinase MB Relative Index 4.68H, Troponin I < 0.02, UR-Nmt-C-Type Natriuretic Peptide 293H, Total Protein 6.6, Albumin 3.5, Albumin/Globulin Ratio 1.13, Thyroid Stimulating Hormone (TSH) 2.270 CBC/BMP Laboratory Tests 06/02/19 13:10 Microbiology Microbiology 06/02/19 Blood Culture, Received Pending 06/02/19 Respiratory Virus Panel (PCR) (BARABRA) - Final, Complete 06/02/19 Blood Culture, Received Pending Home Medications Scheduled Aspirin (Aspirin EC) 81 Mg Tab, 81 MG PO DAILY Calcium Carbonate (Oysco-500) 500 Mg Tablet, 500 MG PO BID Carvedilol (Carvedilol) 3.125 Mg Tablet, 3.125 MG PO BID Cholecalciferol (Vitamin D3) (Vitamin D3) 2,000 Unit Tab, 2,000 UNIT PO DAILY Cyanocobalamin (Vitamin B-12) (Vitamin B-12) 1,000 Mcg Tab, 1,000 MCG PO DAILY Esomeprazole Magnesium (Esomeprazole Magnesium) 20 Mg Cap, 20 MG PO BID Fluticasone Propion/Salmeterol (Advair Hfa 115-21 Mcg Inhaler) 1 Aer Aer, 2 PUFF INH BID Furosemide (Furosemide) 40 Mg Tablet, 40 MG PO DAILY Gabapentin (Gabapentin) 300 Mg Cap, 600 MG PO QHS Levofloxacin (Levofloxacin) 750 Mg Tablet, 750 MG PO DAILY 10 DAY COURSE ENDS 06/05/2019 Loratadine (Loratadine) 10 Mg Tab.rapdis, 10 MG PO DAILY Magnesium Oxide (Magnesium Oxide) 400 Mg Tablet, 400 MG PO DAILY Metformin HCl (Metformin HCl) 1,000 Mg Tab, 1,000 MG PO BID Potassium Chloride (Potassium Chloride) 20 Meq Tab.er.prt, 40 MEQ PO DAILY Prednisone (Prednisone) 10 Mg Tablet, 10 MG PO DAILY Simvastatin (Zocor) 40 Mg Tab, 40 MG PO QHS Sitagliptin (Januvia) 50 Mg Tab, 100 MG PO DAILY Spironolactone (Spironolactone) 25 Mg Tab, 25 MG PO BID Sucralfate (Sucralfate) 1 Gm Tab, 1 GM PO ACHS Tiotropium Bonner (Spiriva) 18 Mcg Cap, 1 INHALATION INH DAILY Tizanidine HCl (Tizanidine HCl) 4 Mg Cap, 8 MG PO QHS Tramadol HCl (Tramadol HCl) 50 Mg Tab, 100 MG PO QHS Scheduled PRN Albuterol Sulfate (Proair Hfa) 108 Mcg/Act Aer, 2 PUFFS INH QID PRN for SHORTNESS OF BREATH Fluticasone Propionate (Flonase Allergy Relief) 50 Mcg/Act Spr, 1 SPRAY NA BID PRN for CONGESTION Ipratropium/Albuterol Sulfate (Iprat-Albut 0.5-3(2.5) mg/3 ml) 1 Winsome Winsome, 1 VIAL INH QID PRN for SOB/WHEEZING Metoclopramide Hcl (Reglan) 5 Mg Tab, 5 MG PO AC PRN for NAUSEA OR VOMITING Allergies Coded Allergies: Penicillins (Verified Allergy, Intermediate, Hives, 09/06/18) GME ATTESTATION GME ATTESTATION My faculty preceptor for this patient encounter was physically present during the encounter and was fully available. All aspects of the patient interview, examination, medical decision making process, and medical care plan development were reviewed and approved by the faculty preceptor. The faculty preceptor is aware and concurs with the plan as stated in the body of this note and will attest to such by his/her cosignature. ATTENDING NOTE 69 yo W with COPD on home 2L, with ongoing almost completed treatment with levaquin for CAP as an outpatient on pred taper, who returned to PCP with persistent SOB and MARCANO and sent to ED for admission with CXR and CTA without PE, LE with DVTs, and no opacities who is now admitted for COPD exacerbation and diuresis given LE edema. She is otherwise on her home 2L and nightly CPAP, will place on solumedrol with plan for switching to pred 40 for 5 days, nebs and IV lasix with aggressive electrolyte repletion as well as PT/OT evaluation. ROLANDO ALEXANDRE DO Jun 02, 2019 18:11 CASEY ESPINAL MD Jun 03, 2019 09:02
[2019-06-02] MEDS: IPRATROPIUM 0.5MG/ALBUTEROL 2.5MG INH SOL UD 3ML (DUONEB)(J7620) NEB SCH (19:53)
[2019-06-02] MEDS ORDERED: SIMVASTATIN 40 MG TAB PO SCH (21:00)
[2019-06-02] MEDS ORDERED: traMADol 50 MG TAB PO SCH (21:00)
[2019-06-02] MEDS ORDERED: GABAPENTIN 300 MG CAP PO SCH (21:00)
[2019-06-02] MEDS ORDERED: tiZANidine 4 MG TAB PO SCH (21:00)
[2019-06-02] MEDS ORDERED: FUROSEMIDE 40 MG/4 ML VIAL (J1940) IV SCH (21:00)
[2019-06-02] MEDS ORDERED: PANTOPRAZOLE 40MG INJ (PROTONIX) (C9113) IV SCH (21:00)
[2019-06-02] MEDS ORDERED: ADVAIR HFA 115/21MCG INHALER INH SCH (21:00)
[2019-06-02] MEDS: FUROSEMIDE 40 MG/4 ML VIAL (J1940) IV SCH (21:35)
[2019-06-02] MEDS: CARVedilol 3.125 MG TAB PO SCH (21:36)
[2019-06-02] MEDS: OYSTER SHELL CALCIUM 500 MG TAB PO SCH (21:36)
[2019-06-02] MEDS: SUCRALFATE 1 GM TAB PO SCH (21:37)
[2019-06-02 23:45] VITALS: BP 105/57
[2019-06-03] MEDS: SPIRONOLACTONE 25 MG TAB PO SCH ×2 (01:14→08:41)
[2019-06-03] MEDS: SUCRALFATE 1 GM TAB PO SCH ×3 (01:41→12:21)
[2019-06-03] MEDS: IPRATROPIUM 0.5MG/ALBUTEROL 2.5MG INH SOL UD 3ML (DUONEB)(J7620) NEB SCH ×3 (03:35→14:20)
[2019-06-03] MEDS ORDERED: methylPREDNISolone INJ 125 MG/2 ML VIAL (J2930) IV SCH ×2 (05:00→17:00)
[2019-06-03 06:00] VITALS: BP 114/71
[2019-06-03] MEDS ORDERED: LevoFLOXacin 750 MG TABLET PO SCH (06:00)
[2019-06-03 07:43] LABS: ALBUMIN 3.4 GM/DL (3.2-5.2); BILIRUBIN,TOTAL 0.5 MG/DL (0.2-1.0); CALCIUM LEVEL 8.7 MG/DL (8.8-10.2); CREATININE FOR GFR 1.16 MG/DL (0.55-1.30); POTASSIUM SERUM 3.6 MEQ/L (3.5-5.1); TOTAL PROTEIN 6.6 GM/DL (6.4-8.2)
[2019-06-03] MEDS: HumaLOG INSULIN (NovoLOG) PER UNIT SC SCH ×2 (08:39→12:21)
[2019-06-03] MEDS: FUROSEMIDE 40 MG/4 ML VIAL (J1940) IV SCH (08:39)
[2019-06-03 08:43] VITALS: BP 114/71
[2019-06-03] MEDS: OYSTER SHELL CALCIUM 500 MG TAB PO SCH (08:43)
[2019-06-03] MEDS: CARVedilol 3.125 MG TAB PO SCH (08:43)
[2019-06-03] MEDS ORDERED: FLUBLOK(EGG FREE)(QUAD)INFLUENZA VACC 0.5ML SYRINGE (90682)18YRS&OLDER IM ONE (09:00)
[2019-06-03] MEDS ORDERED: VITAMIN D 1,000 INTERNATIONAL UNITS TABLET PO SCH (09:00)
[2019-06-03] MEDS ORDERED: TIOTROPIUM INHALER/CAPSULE (SPIRIVA) INH SCH (09:00)
[2019-06-03] MEDS ORDERED: MAGNESIUM OXIDE 400 MG TAB (MAG-OX) PO SCH (09:00)
[2019-06-03] MEDS ORDERED: CYANOCOBALAMIN 500 MCG TAB PO SCH (09:00)
[2019-06-03] MEDS ORDERED: POTASSIUM CHLORIDE 10 MEQ SR TABLET PO SCH (09:00)
[2019-06-03] MEDS ORDERED: ENOXAPARIN 40 MG/0.4 ML SYRINGE (J1650) SC SCH (09:00)
[2019-06-03] MEDS ORDERED: SITagliptin 50 MG TAB (JANUVIA) PO SCH (09:00)
[2019-06-03] MEDS ORDERED: ASPIRIN 81 MG ENTERIC TAB PO SCH (09:00)
[2019-06-03] MEDS ORDERED: PRED10TA2 PO (11:24)
--- NOTE | 2019-06-03 11:43 | DS.PDOC ---
Discharge Summary General Date of Admission Jun 02, 2019 at 17:32 Date of Discharge 06/03/2019 Discharge Summary DISCHARGE DIAGNOSIS: COPD exacerbation secondary bacterial pneumonia, 2/2 fluid overload SECONDARY DIAGNOSIS: 1. Community acquired pneumonia 2. NIDDM 3. CHRISTINE 4. HTN 5. Hyperlipidemia 6. Lung Cancer 7. GERD PROCEDURES PERFORMED DURING STAY: None CONSULTANTS: Pulmonology , Dr. José Miguel Daniels HOSPITAL COURSE: She was admitted to med/surg floor for COPD exacerbation secondary to bacterial pneumonia and fluid overload. She was started on her home medications as well as Lasix 40 IV twice a day and steroid stress dose. The next day she tolerated the Lasix and the stress dose really well she states that she is stable to go back home and has no complaints. 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 Lastly, we advised her to take her Levaquin as proscribed and to complete but June 05. She has no complaints and she is agreeable to this plan. DISCHARGE MEDICATIONS: Please see below. ALLERGIES: Please see below. SUBJECTIVE: Patient seen and examined this morning. She states she is feeling much better since hes been here. She chest pain, shortness, breath, nausea, vomiting, fevers, chills OBJECTIVE: PHYSICAL EXAMINATION: VITAL SIGNS: Please see below. GENERAL: Pleasant 69 year old female sitting up in bed awake alert oriented speaking in complete sentences no acute distress HEENT: Cushingoid features , large neck girth CARDIOVASCULAR: distant heart sounds due to large body habitus, S1 S2 regular no additional heart sounds appreciated. RESPIRATORY: No audible wheezing rhonchus or rales appreciated. Symmetric air movement. Very large body habitus ABDOMINAL: Positive bowel sounds in all 4 quadrants obese abdomen nondistended EXTREMITIES: No lower extremity pitting edema, clubbing or cyanosis. NEUROLOGICAL: no gross focal deficits appreciated PSYCHOLOGICAL: Appropriate LABORATORY DATA, MICROBIOLOGY: Please see below. IMAGING STUDIES: CT Chest: There are no pulmonary emboli. There are no infiltrates or pleural effusions. There is a chronic stable stranding linear density medially in the right middle lobe compatible with scarring. There is a nodule inferiorly in the lingula as described, nonspecific, scarring versus progression of the nodule in the same location seen on the prior study. Vascular U/S Negative bilateral lower extremity duplex venous ultrasound. No evidence of deep vein thrombosis. Chest Xray Bibasilar linear fibrosis versus atelectasis, chronic. No acute infiltrate. DISPOSITION: Home. DISCHARGE CONDITION: Stable FOLLOW UP: 1. Follow-up with PCP in 2 weeks 2. Follow-up pulmonology in 2 weeks 3. transfer and line up worker prednisone taper from pharmacy and follow instructions written. 4. Complete Levaquin antibiotics as prescribed with the end date of 06/03/2019 5. If symptoms return or worsen please call your PCP or return to the ER ACTIVITY: As prior to admission DIET: As prior to admission TIME SPENT ON DISCHARGE: 50 minutes Vital Signs/I&Os Vital Signs Date Time Temp Pulse Resp B/P (MAP) Pulse Ox O2 Delivery O2 Flow Rate FiO2 06/03/19 08:43 98 114/71 06/03/19 06:00 98.6 19 96 Nasal Cannula 2.0 06/02/19 21:15 36 I&O- Last 24 Hours up to 6 AM 06/03/19 06:00 Intake Total 300 ml Output Total 600 ml Balance -300 ml Laboratory Data Labs 24H Laboratory Tests 2 06/02/19 13:10: Immature Granulocyte % (Auto) 3.1H, Neutrophils (%) (Auto) 85.9H, Lymphocytes ( %) (Auto) 6.2L, Monocytes (%) (Auto) 4.0, Eosinophils (%) (Auto) 0.2, Basophils (%) (Auto) 0.6, Neutrophils # (Auto) 14.3H, Lymphocytes # (Auto) 1.0L, Monocytes # (Auto) 0.7, Eosinophils # (Auto) 0.0, Basophils # (Auto) 0.1, Nucleated Red Blood Cells % (auto) 0.0, Prothrombin Time 13.3, Prothromb Time International Ratio 1.04, Blood Gas Bicarbonate Standard 28.9, Venous Blood pH 7.381, Venous Blood Partial Pressure CO2 55.3H, Venous Blood Partial Pressure O2 46.1, Venous Blood Total Carbon Dioxide 33.8H, Venous Blood HCO3 32.1H, Venous Blood Oxygen Saturation 80.5H, Venous Blood Base Excess 5.4H, Anion Gap 11, Glomerular Filtration Rate 54.4, Calcium Level 8.9, Total Bilirubin 0.6, Direct Bilirubin 0.2, Aspartate Amino Transf (AST/SGOT) 6L, Alanine Aminotransferase (ALT/SGPT) 20, Alkaline Phosphatase 65, Total Creatine Kinase 62, Creatine Kinase MB 2.9, Creatine Kinase MB Relative Index 4.68H, Troponin I < 0.02, AQ-Eno-U-Type Natriuretic Peptide 293H, Total Protein 6.6, Albumin 3.5, Albumin/Globulin Ratio 1.13, Thyroid Stimulating Hormone (TSH) 2.270 06/02/19 21:43: Bedside Glucose (Misc Panel) 379H 06/03/19 07:08: Anion Gap 10, Glomerular Filtration Rate 49.0, Calcium Level 8.7L, Total Bilirubin 0.5, Aspartate Amino Transf (AST/SGOT) 7, Alanine Aminotransferase (ALT/SGPT) 20, Alkaline Phosphatase 65, Total Protein 6.6, Albumin 3.4, Albumi n/Globulin Ratio 1.06 CBC/BMP Laboratory Tests 06/02/19 13:10 06/03/19 07:08 FSBS Laboratory Tests Test 06/02/19 21:43 Range/Units Bedside Glucose (Misc Panel) 379 83-110 MG/DL Microbiology Microbiology 06/02/19 Blood Culture, Received Pending 06/02/19 Respiratory Virus Panel (PCR) (BARBARA) - Final, Complete 06/02/19 Blood Culture, Received Pending Discharge Medications Scheduled Aspirin (Aspirin EC) 81 Mg Tab, 81 MG PO DAILY, (Reported) Calcium Carbonate (Oysco-500) 500 Mg Tablet, 500 MG PO BID, (Reported) Carvedilol (Carvedilol) 3.125 Mg Tablet, 3.125 MG PO BID, (Reported) Cholecalciferol (Vitamin D3) (Vitamin D3) 2,000 Unit Tab, 2,000 UNIT PO DAILY, (Reported) Cyanocobalamin (Vitamin B-12) (Vitamin B-12) 1,000 Mcg Tab, 1,000 MCG PO DAILY, (Reported) Esomeprazole Magnesium (Esomeprazole Magnesium) 20 Mg Cap, 20 MG PO BID, (Reported) Fluticasone Propion/Salmeterol (Advair Hfa 115-21 Mcg Inhaler) 1 Aer Aer, 2 PUFF INH BID, (Reported) Furosemide (Furosemide) 40 Mg Tablet, 40 MG PO DAILY, (Reported) Gabapentin (Gabapentin) 300 Mg Cap, 600 MG PO QHS, (Reported) Levofloxacin (Levofloxacin) 750 Mg Tablet, 750 MG PO DAILY, (Reported) 10 DAY COURSE ENDS 06/05/2019 Loratadine (Loratadine) 10 Mg Tab.rapdis, 10 MG PO DAILY, (Reported) Magnesium Oxide (Magnesium Oxide) 400 Mg Tablet, 400 MG PO DAILY, (Reported) Metformin HCl (Metformin HCl) 1,000 Mg Tab, 1,000 MG PO BID, (Reported) Potassium Chloride (Potassium Chloride) 20 Meq Tab.er.prt, 40 MEQ PO DAILY, (Reported) Prednisone (Prednisone) 10 Mg Tablet, 10 MG PO DAILY, (Reported) Prednisone (Prednisone) 10 Mg Tablet, 10 MG PO TAPER Take 4 tabs daily x 3 days, then 3 tabs daily x 3 days, then 2 tabs daily x 3 days, then resume daily 10mg (1 TAB) daily Simvastatin (Zocor) 40 Mg Tab, 40 MG PO QHS, (Reported) Sitagliptin (Januvia) 50 Mg Tab, 100 MG PO DAILY, (Reported) Spironolactone (Spironolactone) 25 Mg Tab, 25 MG PO BID, (Reported) Sucralfate (Sucralfate) 1 Gm Tab, 1 GM PO ACHS, (Reported) Tiotropium [place] (Spiriva) 18 Mcg Cap, 1 INHALATION INH DAILY, (Reported) Tizanidine HCl (Tizanidine HCl) 4 Mg Cap, 8 MG PO QHS, (Reported) Tramadol HCl (Tramadol HCl) 50 Mg Tab, 100 MG PO QHS, (Reported) Scheduled PRN Albuterol Sulfate (Proair Hfa) 108 Mcg/Act Aer, 2 PUFFS INH QID PRN for SHORTNESS OF BREATH, (Reported) Fluticasone Propionate (Flonase Allergy Relief) 50 Mcg/Act Spr, 1 SPRAY NA BID PRN for CONGESTION, (Reported) Ipratropium/Albuterol Sulfate (Iprat-Albut 0.5-3(2.5) mg/3 ml) 1 Winsome [place]wn[place], 1 VIAL INH QID PRN for SOB/WHEEZING, (Reported) Metoclopramide Hcl (Reglan) 5 Mg Tab, 5 MG PO AC PRN for NAUSEA OR VOMITING, (R eported) Allergies Coded Allergies: Penicillins (Verified Allergy, Intermediate, Hives, 09/06/18) GME ATTESTATION GME ATTESTATION My faculty preceptor for this patient encounter was physically present during the encounter and was fully available. All aspects of the patient interview, examination, medical decision making process, and medical care plan development were reviewed and approved by the faculty preceptor. The faculty preceptor is aware and concurs with the plan as stated in the body of this note and will attest to such by his/her cosignature. ATTENDING NOTE 69 yo W, prior smoker with COPD on 2L at baseline who is on levaquin for presumed bacterial pneumonia and pred taper who presented to the ED with persistent MARCANO and SOB found to have elements of fluid overload as well as a COPD exacerbation with no evidence of active PNA while on her home 2L NC. We placed her on solumedrol and nebs as well as IV lasix with great improvement in her MARCANO and resolution of SOB and she worked with PT and was cleared for home discharge. She is now being discharged home with a prednisone taper until her daily 10mg dose and continue her Levaquin as prescribed to complete on June 05. JERMAINE MILLER DO Jun 03, 2019 11:43 CASEY ESPINAL MD Jun 05, 2019 06:27
[2019-06-03 14:00] VITALS: BP 95/65
[2019-06-03] MEDS ORDERED: methylPREDNISolone INJ 40 MG/1 ML VIAL (J2920) IV SCH (17:00)
== END 2019-06-03 15:31 | disposition home health service (06) | DRG 190 ==
LOC: M ED 12:23 → M ED INP 17:32 → ENRESERVTM 22:35 → ENRESERVDT 22:35 → M MS5PR 23:37
PROVIDERS: ADMIT Internal Medicine; ATTEND Internal Medicine
DX: J44.1 Chronic obstructive pulmonary disease with (acute) exacerbation (principal); J18.9 Pneumonia, unspecified organism; C34.90 Malignant neoplasm of unspecified part of unspecified bronchus or lung; E87.70 Fluid overload, unspecified; E11.9 Type 2 diabetes mellitus without complications; G47.33 Obstructive sleep apnea (adult) (pediatric); I10 Essential (primary) hypertension; E78.5 Hyperlipidemia, unspecified; Z92.3 Personal history of irradiation; K21.9 Gastro-esophageal reflux disease without esophagitis; Z79.82 Long term (current) use of aspirin; Z79.84 Long term (current) use of oral hypoglycemic drugs; Z88.0 Allergy status to penicillin

== ENCOUNTER → 2019-07-07 | Outpatient (REF) | payer OTHER ==
[~2019-07-07] MED LIST changes: +CARV3.12 PO; +LEVO750T13 PO; -LevoFLOXacin 750 MG TABLET PO SCH; +MAGN400T2 PO; +OYSCTAB PO; +POTA20TA6 PO; +SM LTAB5 PO
[2019-07-07 20:03] LABS: CREATININE, URINE 75.2 MG/DL; MALB URINE SIEMENS 72.9 MG/L; MAU/CREAT RATIO 96.9 MCG/MG (0.0-30.0)
== END ==
LOC: M SFHCPLAZ 18:34
PROVIDERS: ATTEND Internal Medicine
DX: E11.9 Type 2 diabetes mellitus without complications (principal)

== ENCOUNTER → 2019-07-07 | Outpatient (REF) | payer MEDICAID, MEDICARE, OTHER ==
[~2019-07-07] MED LIST changes: +ALL10TAB29 PO; +CLINDAMYCIN; +ESOM1CAP5 PO; -FLON1SPR; +FLON1SPR NARES; +KEFL500C17 PO; +PRED20TA PO; +PROB1CAP10 PO; +VALA1TAB5 PO; +VALA500T5 PO; +VITAD1000T PO
== END ==
LOC: M SFHCPLAZ 13:38
DX: E11.9 Type 2 diabetes mellitus without complications (principal)

== ENCOUNTER → 2019-07-12 | Outpatient (CLI) | payer MEDICARE, MEDICAID ==
[~2019-07-12] MED LIST changes: -ALL10TAB29 PO; -CLINDAMYCIN; -ESOM1CAP5 PO; +FLON1SPR; -FLON1SPR NARES; +ISOVUE-370 76% 100ML VIAL (Q9967) As Ordered ONE; -KEFL500C17 PO; -PRED20TA PO; -PROB1CAP10 PO; -VALA1TAB5 PO; -VALA500T5 PO; -VITAD1000T PO
--- NOTE | 2019-07-12 19:55 | REP ---
Clinical: Stage I lung cancer. Technique: Axial contrast enhanced images from the thoracic inlet to the upper abdomen coronal and sagittal re-formations using 100 ml Isovue 370 intravenous contrast material. Comparison: 06/02/2019. Findings: Lung vargas are well-aerated and diffuse chronic interstitial changes are again noted. Linear/nodular scarring at the lingula and right middle lobe along with small scattered calcified nodules remain essentially stable. Multiple small noncalcified nodules primarily identified in the right base which measure up to approximately 9 mm and to a lesser extent the left base appear essentially unchanged compared to 06/02/2019, but increased as compared to . No new consolidation or pleural effusion. No pneumothorax. Tracheobronchial tree is patent. No obvious axillary, hilar, or mediastinal adenopathy noted. Atherosclerotic changes to the thoracic aorta and coronary arteries again identified without aortic aneurysm or cardiomegaly. No pericardial effusion. Musculoskeletal structures without focal abnormality. Limited upper abdomen demonstrates normal bilateral adrenal glands. Impression: 1. Chronic relatively stable interstitial changes and areas of linear/nodular scarring in the right middle lobe and lingula. No adenopathy or new lesions are appreciated. 2. Few scattered noncalcified nodules primarily noted in the right lower lobe are essentially unchanged as compared to 06/02/2019, but increased as compared to . Findings are nonspecific and non hypermetabolic on PET-CT dated 04/05/2019. Consider 6-9 month reevaluation to confirm stability. Electronically Signed by José Miguel Kay MD 07/12/2019 07:46 P
== END ==
LOC: M RAD 10:37
PROVIDERS: ATTEND Internal Medicine Medical Oncology
DX: C34.90 Malignant neoplasm of unspecified part of unspecified bronchus or lung (principal)
CPT/HCPCS: 71260; Q9967

== ENCOUNTER 2019-07-19 16:35 | Inpatient (IN) | payer MEDICARE, MEDICAID ==
[~2019-07-19] VITALS: Ht 149.9 cm; Wt 100.6 kg
[~2019-07-19 16:35] MED LIST changes: -FLON1SPR; +FLON1SPR NARES; -ISOVUE-370 76% 100ML VIAL (Q9967) As Ordered ONE
[2019-07-19] MEDS ORDERED: CLINDAMYCIN (16:50)
[2019-07-19] MEDS ORDERED: LIDOCAINE W/EPINEPHRINE 1% 20ML VIAL SC ONE (17:00)
[2019-07-19] MEDS ORDERED: LIDOCAINE W/EPINEPHRINE 1% 20ML VIAL As Ordered ONE (17:00)
--- NOTE | 2019-07-19 17:43 | REP ---
Clinical: Septic bursitis. Technique: AP, lateral, bilateral oblique views of the right elbow. Findings: The osseous structures are intact and there is no evidence for acute fracture or dislocation. Very minimal age-related degenerative changes are noted with subtle spurring along the coronoid process. Lateral view demonstrates posterior swelling consistent with the given history of right bursitis. No subcutaneous emphysema or foreign body identified. Impression: Posterior swelling consistent with the given history of bursitis. Electronically Signed by José Miguel Kay MD 07/19/2019 05:36 P
[2019-07-19] MEDS ORDERED: ALL10TAB29 PO (17:52)
[2019-07-19] MEDS ORDERED: ESOM1CAP5 PO (17:52)
[2019-07-19] MEDS ORDERED: JANU100T PO (17:52)
[2019-07-19] MEDS ORDERED: PRED20TA PO (17:52)
[2019-07-19] MEDS ORDERED: VITAD1000T PO (17:52)
[2019-07-19 18:01] LABS: BASO # 0.1 10^3/uL (0.0-0.2); BASO % 0.9 % (0.0-1.0); EOS % 0.1 % (0.0-3.0); HEMATOCRIT 41.1 % (36.0-47.0); HEMOGLOBIN 13.5 g/dl (12.0-15.5); LYMPH # 0.7 10^3/uL (1.5-5.0); LYMPH % 4.5 % (24.0-44.0); MEAN CORPUSCULAR HEMOGLOBIN 28.4 pg (27.0-33.0); MEAN CORPUSCULAR HGB CONC 32.8 g/dl (32.0-36.5); MEAN CORPUSCULAR VOLUME 86.3 fl (80.0-96.0); MONO # 0.4 10^3/uL (0.0-0.8); MONO % 2.4 % (0.0-5.0); NEUTROPHILS # 12.5 10^3/uL (1.5-8.5); NEUTROPHILS % 87.5 % (36.0-66.0); PLATELET COUNT, AUTOMATED 256 10^3/uL (150-450); RED BLOOD COUNT 4.76 10^6/uL (4.00-5.40); WHITE BLOOD COUNT 14.3 10^3/uL (4.0-10.0)
[2019-07-19 18:20] LABS: ERYTHROCYTE SEDIMENTATION RATE 36 mm/hr (0-30)
--- NOTE | 2019-07-19 18:25 | REP ---
Clinical: Cough. Technique: PA and lateral. Comparison: 06/02/2019. Findings: Mediastinum and cardiac silhouette stable. Lung vargas demonstrate chronic-appearing interstitial changes. No focal consolidation. No effusion. No pneumothorax. Skeletal structures intact. Impression: Chronic-appearing changes. No focal consolidation or effusion. Electronically Signed by José Miguel Kay MD 07/19/2019 06:16 P
[2019-07-19 18:28] LABS: C REACTIVE PROTEIN QUANTITATIV 0.7 MG/DL (0.00-0.30); CREATININE FOR GFR 1.08 MG/DL (0.55-1.30); GLOMERULAR FILTRATION RATE 53.2 (>39); POTASSIUM SERUM 4.5 MEQ/L (3.5-5.1); URIC ACID 4.6 MG/DL (2.6-6.0)
[2019-07-19 18:32] LABS: CRYSTALS, BODY FLUID NONE SEEN (NONE SEEN); SOURCE, BODY FLUID RT ELBOW; SOURCE, BODY FLUID CRYSTALS RT ELBOW; SYNOVIAL FLUID COLOR PALE YELLOW (YELLOW)
[2019-07-19 18:54] LABS: SOURCE, BODY FLUID URIC ACID RT ELBOW; URIC ACID, BODY FLUID 4.6 MG/DL (NOT ESTABLISHED)
[2019-07-19] MEDS ORDERED: ALBUTEROL 90 MCG/ACT 8GM HFA INHALER INH PRN (19:00)
[2019-07-19] MEDS ORDERED: ACETAMINOPHEN TAB 650MG DOSE (2X325MG) PO PRN (19:00)
[2019-07-19] MEDS ORDERED: GLUCAGON FOR INJ 1 MG VIAL (J1610) SC PRN (19:30)
[2019-07-19] MEDS ORDERED: NS 1,000 ML IV SCH (19:30)
[2019-07-19] MEDS ORDERED: GLUCOSE 4 GM CHEW TABLET PO PRN (19:30)
[2019-07-19] MEDS ORDERED: DEXTROSE 50% 50 ML SYRINGE IV PRN (19:30)
[2019-07-19] MEDS ORDERED: IPRATROPIUM 0.5MG/ALBUTEROL 2.5MG INH SOL UD 3ML (DUONEB)(J7620) NEB PRN (19:30)
[2019-07-19] MEDS ORDERED: VANCOMYCIN HCL 1,000 MG, VIAL MATE ADAPTER 1 EACH in D5W 250 ML IV SCH (20:00)
[2019-07-19 20:01] LABS: INR 1.03; PARTIAL THROMBOPLASTIN TIME 22.8 SECONDS (25.0-38.4); PROTHROMBIN TIME 13.2 SECONDS (11.8-14.0)
--- NOTE | 2019-07-19 20:02 | HPEPDOC ---
[facility] Medical History & Physical Date of Admission Jul 19, 2019 Date of Service: Jul 19, 2019 Primary Care Physician: NERISSA MILLER DO Attending Physician: Venus Gusman MD History and Physical CHIEF COMPLAINT: Right elbow pain, swelling HISTORY OF PRESENT ILLNESS: The patient is a 69-year-old female with past history of non-small cell lung cancer, COPD on 2 L distal cannula, obstructive sleep apnea, diabetes mellitus, CAD status post stents, history of bladder cancer who presented to [facility] emergency room with the chief complaint of increasing right elbow pain and swelling. Per patient, swelling and pain on her right elbow began one week ago. She went to the urgent care on [address] and was started on oral clindamycin. She states initially her right elbow pain was 5 out of 10 on the day she went to urgent care; however she had increasing pain over this past 6 days. She noticed increased redness and swelling also over the right elbow. She denied fevers, chills, nausea, vomiting, diarrhea, abdominal pain. She has no history of having had swelling in her right elbow; however, she has a questionable history of MRSA. Today due to worsening symptoms the patient came to the emergency room for further evaluation. Other associated symptoms include lack of energy and productive cough. Patient states she always has a productive cough with yellow sputum, she says this is nothing new for her. She is currently improving from a COPD exacerbation, on tapering dose of prednisone. In the ER vital signs showed a pulse of 109, blood pressure 104/67, temperature 99.4, respiratory rate 28. Oxygen saturation was 92% on 2 L nasal cannula. W BC 14.3, creatinine was 1.08, ESR 36, CRP 0.76. Aspiration of the right elbow yielded 18 30 mL of a pale yellow turbid fluid. Fluid was sent for uric acid, cell count, crystal analyze, and a culture. Blood cultures were also drawn 2 sets. On examination the patient had a slightly and swollen right elbow with decreased range of motion. She appeared to be short of breath; however, the patient states she had been moving around a lot today and she does not normally move as much at home. She had mild expiratory wheezing likely from her exertion today. Chest x-ray done showed no acute changes. Orthopedic surgery saw the patient in the emergency room and recommended inpatient hospitalization with IV antibiotics. Patient was admitted for septic bursitis of the right elbow, sepsis. REVIEW OF SYSTEMS: CONSTITUTIONAL: Denies unexplained weight gain or weight loss, loss of appetite, fever, night sweats EYES: Denies eye drainage, eye pain, visual changes, dry/irritated eye EARS, NOSE, MOUTH, THROAT: Denies difficulty hearing, ringing in ears, mouth sores, loose teeth, sore throat, facial numbness or pain NECK: Denies swollen glands CARDIOVASCULAR: Denies irregular heartbeat, racing heart, chest pains, pain in legs with walking RESPIRATORY: Denies night sweats, sputum production, coughing up blood GASTROINTESTINAL: Denies abdominal pain, constipation, bloody stool, diarrhea, heartburn, nausea, vomiting GENITOURINARY: Denies painful urination, bloody urine, frequent urination, urgency, leaking urine, impotence MUSCULOSKELETAL: Denies joint pain, muscle pain, leg swelling INTEGUMENTARY: Denies rash, itching, new skin lesion, change in existing skin lesion, hair loss or increase, breast changes. NEUROLOGICAL: Denies headaches, dizziness, difficulty walking, numbness or tingling PSYCHIATRIC: Denies depression, anxiety, recurrent bad thoughts, mood swings, hallucinations PAST MEDICAL HISTORY: 1. Non-small cell lung cancer, primary right middle lung. Status post 5 treatments radiation 2. COPD on 2 L nasal cannula 3. Chronic respiratory failure, oxygen dependent 4. Obstructive sleep apnea on 4 L nasal cannula at night 5. Diabetes mellitus type 2 6. CAD status post stents 2008 7. History of bladder cancer 8. Tobacco abuse history 9. Physical deconditioning 10. ?History of MRSA PAST SURGICAL HISTORY: 1. S/p stent placement 2008 2. Partial hysterectomy 3. Cholecystectomy 4. Carpal tunnel surgery 5. left foot surgery 6. bladder suspension 7. right shoulder tear repair 8. Hip replacement, bilaterally 9. Bladder mass removal 10. TURP FAMILY HISTORY: Mother: Breast cancer, at 63 years old Father: CAD, in his 90s Sr.: CAD, alive Sr. #2: Lung cancer, at unknown age SOCIAL HISTORY: Prior smoker for 60+ years, 1-2 packs per day since the age of 13, denies alcohol use. Denies illicit drug use. [place] in the local area. She follows with Dr. Sosa, oncology. CardiologistDr. Dow, primary care provider is Nerissa Senior. ALLERGIES: Please see below. HOME MEDICATIONS: Please see below. PHYSICAL EXAMINATION: CONSTITUTIONAL: No acute distress, resting , AAO x 3 EYES: PERRLA, EOM intact HENT, MOUTH: Normocephalic, atraumatic, moist mucous membranes, NECK: increased neck diameter, SUPPLE, no JVD, no lymphadenopathy, no carotid bruit CV: Regular rate and rhythm, S1S2 normal, no murmurs/rubs/gallops RESPIRATORY: mild exp wheezing, no rales/rhonchi GI: BS positive in 4 quadrants, soft, nontender, nondistended, no rebound or guarding, no organomegaly : Deferred MUSCULOSKELETAL: Right elbow redness, warmth and tenderness to touch. Splint in place overtop. Decreased ROM of right elbow joint . No cyanosis, clubbing, swelling, joint deformity. +2 pitting edema in bilateral lower ext INTEGUMENTARY: Intact, no rashes, no lesions, no erythema NEUROLOGIC: Cranial Nerves II-XII are intact, no focal deficits PSYCHIATRIC: Mood and affect are normal LABORATORY DATA: Please see below IMAGING: Right elbow XR: Posterior swelling consistent with the given history of bursitis. CXR: Chronic-appearing changes. No focal consolidation or effusion. ASSESSMENT: 69-year-old female admitted under inpatient status for septic bursit is of the right elbow, sepsis. PLAN: 1. Septic bursitis of the right elbow, sepsis. She will history of MRSA. Starting IV vancomycin 1 g IV every 12 hours, pain control, every 48 hours CRP, telemetry monitoring, until IV fluid hydration at 80 mL per hour. Uric acid, fluid cell count, fluid crystal analysis, body fluid culture from aspirated fluid, blood cultures 2 pending results. Orthopedic surgery consult to follow. 2. Mild COPD exacerbation, improving. Completing steroid taper. Currently on home amount of oxygen. Continue home tapering dose of prednisone, home inhalers and DuoNeb's when necessary. 3. Obstructive sleep apnea. Can bring home CPAP machine in, 4 L nasal cannula at night. 4. Diabetes mellitus. Holding home metformin and Januvia. Started insulin sliding scale. Can start detemir every morning if needed. Instant carbohydrate diet, before meals/at bedtime blood sugar checks. Hypoglycemic protocol in place 5. GERD. PPI BID 6. Small non-small cell lung cancer, primary right middle lobe of the lung. Status post 5 treatments of radiation. Patient follows with oncology. Cancer has been stable. 7. History of bladder cancer. Patient has been in remission for many years. 8. CAD status post stent. Nice chest pain or increasing shortness of breath at home. Continue with all home Priyank medications. 9. DVT prophylaxis. Anoxic apparent 40 mg subcutaneous daily, SCDs. DISPOSITION: Currently admitted under inpatient status. Plan is to return home when medically stable. Vital Signs Vital Signs Date Time Temp Pulse Resp B/P (MAP) Pulse Ox O2 Delivery O2 Flow Rate FiO2 07/19/19 17:12 07/19/19 16:36 99.4 109 28 93 Nasal Cannula 2.0 Laboratory Data Labs 24H Laboratory Tests 2 07/19/19 17:15: Immature Granulocyte % (Auto) 4.6H, Neutrophils (%) (Auto) 87.5H, Lymphocytes (%) (Auto) 4.5L, Monocytes (%) (Auto) 2.4, Eosinophils (%) (Auto) 0.1, Basophils (%) (Auto) 0.9, Neutrophils # (Auto) 12.5H, Lymphocytes # (Auto) 0.7L, Monocytes # (Auto) 0.4, Eosinophils # (Auto) 0.0, Basophils # (Auto) 0.1, Nucleated Red Blood Cells % (auto) 0.0, Erythrocyte Sedimentation Rate 36H, Anion Gap 9, Glomerular Filtration Rate 53.2, Uric Acid 4.6, Calcium Level 9.0, C-Reactive Protein, Quantitative 0.70H 07/19/19 17:18: Body Fluid WBC (Auto) 577140M, Body Fluid RBC (Auto) 394, Body Fluid Mononuclear Cells % Auto 19.7H, Fluid Polymorphonuclear Cell % Auto 80.3H, Body Fluid Crystals NONE SEEN, Body Fluid Crystal Source RT ELBOW, Body Fluid Uric Acid 4.6, Body Fluid Uric Acid Source RT ELBOW, Synovial Fluid Source RT ELBOW, Synovial Fluid Color PALE YELLOW, Synovial Fluid Appearance TURBID CBC/BMP Laboratory Tests 07/19/19 17:15 Microbiology Microbiology 07/19/19 Gram Stain, Received Pending 07/19/19 Body Fluid Culture, Received Pending 07/19/19 Blood Culture, Received Pending 07/19/19 Blood Culture, Received Pending Home Medications Scheduled Aspirin (Aspirin EC) 81 Mg Tab, 81 MG PO DAILY Calcium Carbonate (Oysco-500) 500 Mg Tablet, 500 MG PO BID Carvedilol (Carvedilol) 3.125 Mg Tablet, 3.125 MG PO BID Cetirizine HCl (Cetirizine HCl) 10 Mg Tablet, 10 MG PO QHS Cholecalciferol (Vitamin D3) (Vitamin D3) 1,000 Unit Tablet, 2,000 UNITS PO DAILY Esomeprazole Magnesium (Esomeprazole Magnesium) 40 Mg Capsule.dr, 40 MG PO BID Fluticasone Propion/Salmeterol (Advair Hfa 115-21 Mcg Inhaler) 1 Aer Aer, 2 PUFF INH BID Fluticasone Propionate (Flonase Allergy Relief) 50 Mcg/Act Spr, 2 SPRAYS NARES DAILY Furosemide (Furosemide) 40 Mg Tablet, 40 MG PO DAILY Gabapentin (Gabapentin) 300 Mg Cap, 600 MG PO QHS Ipratropium/Albuterol Sulfate (Iprat-Albut 0.5-3(2.5) mg/3 ml) 1 Winsome Winsome, 1 VIAL INH QID Metformin HCl (Metformin HCl) 1,000 Mg Tab, 1,000 MG PO BID Potassium Chloride (Potassium Chloride) 20 Meq Tab.er.prt, 20 MEQ PO BID Prednisone (Prednisone) 10 Mg Tablet, 10 MG PO DAILY RESUME AFTER 40MG DAILY FOR 10 DAYS Prednisone (Prednisone) 20 Mg Tablet, 40 MG PO DAILY FOR 10 DAYS. ON DAY 7 Simvastatin (Zocor) 40 Mg Tab, 40 MG PO QHS Sitagliptin Phosphate (Januvia) 100 Mg Tablet, 100 MG PO DAILY Spironolactone (Spironolactone) 25 Mg Tab, 25 MG PO BID Sucralfate (Sucralfate) 1 Gm Tab, 1 GM PO ACHS Tiotropium [place] (Spiriva) 18 Mcg Cap, 18 MCG INH DAILY Scheduled PRN Albuterol Sulfate (Proair Hfa) 108 Mcg/Act Aer, 2 PUFFS INH QID PRN for SHORTNESS OF BREATH Tramadol HCl (Tramadol HCl) 50 Mg Tab, 50 MG PO TID PRN for PAIN Allergies Coded Allergies: Penicillins (Verified Allergy, Intermediate, Hives, 09/06/18) A-FIB/CHADSVASC A-FIB History Current/History of A-Fib/PAF?: No Current PO Anticoag Therapy: No Age/Risk Factor Scoring CHADSVASC: CHADSVASC Response (Comments) Value Age Risk Factor Age 65-74 years old 1 Gender Risk Factor Female 1 Hx of CHF No 0 Hx of HTN Yes 1 Hx of Stroke/TIA/or VTE No 0 Hx of Vascular Disease No 0 Total 3 Treatment Treatment ordered: NONE, Other (enoxaparin daily), Holding Warfarin Other anticoagulant ordered: Enoxaparin Venus Gusman MD Jul 19, 2019 20:01
[2019-07-19 20:08] VITALS: BP 141/85
--- NOTE | 2019-07-19 20:16 | PHACANCOPD ---
PHARMACY VANCOMYCIN DOSING Pt Demographics Demographics Patient Age:69 , Weight:99.400 , Gender: female Adjusted Body Weight Date: 07/19/19, Adjusted Body Weight: [67.1] Kg Events Past 24 Hours Events Past 24 Hours: NO: Dialysis, Diuretic Therapy, Change in CrCl, Fever, Elevation in WBC, Pending Diagnostics, Pending Procedures, Other Vancomycin Vancomycin indication: Septic bursitis, right elbow Vancomycin Target Ranges: 10-20 mcg/ml Vancomycin Load Y/N: Yes Load Dose Date Time Vancomycin Load Dose: 2g Date: 07/19/19 Time:20:00 Vancomycin Dose Date: 07/19/19. Current Vancomycin Dose: [1g iv q24h] Intermittent Dosing?: No Labs Labs Item Value Date Time White Blood Count 14.3 10^3/uL H 07/19/19 1715 Creatinine 1.08 MG/DL 07/19/19 1715 C-Reactive Protein, Quantitative 0.70 MG/DL H 07/19/19 1715 Micro Microbiology 07/19/19 Gram Stain, Received Pending 07/19/19 Body Fluid Culture, Received Pending 07/19/19 Blood Culture, Received Pending 07/19/19 Blood Culture, Received Pending Creatinine Clearance Date:07/19/19. Creatinine Clearance: [54ML/MIN]. Assessment and Plan Maintaining Current Dose?: Yes Reason for dose change: No Dose Change Pharmacist Note Pharmacist Note Date: 07/19/19. Pharmacist note: Pt is a 69 year old female being treated for septic bursitis goal trough 15-20mcg/ml. The patient was last treated here with vancomycin in 2009. To achieve goal a 2g loading dose will start 07/19/19 @20:00. Maintenance therapy will consist of 1g IV every 18 hours. We will continue to monitor and adjust the dose as needed. [facility] Jul 19, 2019 20:16
[2019-07-19] MEDS: CARVedilol 3.125 MG TAB PO SCH (20:57)
[2019-07-19] MEDS: traMADol 50 MG TAB PO PRN (20:58)
[2019-07-19] MEDS: GABAPENTIN 300 MG CAP PO SCH (20:58)
[2019-07-19] MEDS: SIMVASTATIN 40 MG TAB PO SCH (20:59)
[2019-07-19] MEDS: ACETAMINOPHEN TAB 650MG DOSE (2X325MG) PO SCH (20:59)
[2019-07-19] MEDS: OYSTER SHELL CALCIUM 500 MG TAB PO SCH (20:59)
[2019-07-19] MEDS: PANTOPRAZOLE 40MG TAB (PROTONIX) PO SCH (20:59)
[2019-07-19] MEDS: SUCRALFATE 1 GM TAB PO SCH (20:59)
[2019-07-19] MEDS: CETIRIZINE (ZyrTEC) 10 MG TAB PO SCH (20:59)
[2019-07-19] MEDS: POTASSIUM CHLORIDE 10 MEQ SR TABLET PO SCH (20:59)
[2019-07-19] MEDS: ENOXAPARIN 40 MG/0.4 ML SYRINGE (J1650) SC SCH (21:00)
[2019-07-19] MEDS ORDERED: VANCOMYCIN HCL 1,000 MG, VIAL MATE ADAPTER 1 EACH in D5W 250 ML IV ONE (21:00)
[2019-07-19] MEDS: VANCOMYCIN HCL 1,000 MG, VIAL MATE ADAPTER 1 EACH in D5W 250 ML IV SCH (21:00)
[2019-07-19] MEDS ORDERED: SPIRONOLACTONE 25 MG TAB PO SCH (21:00)
[2019-07-19] MEDS: HumaLOG INSULIN (NovoLOG) PER UNIT SC SCH (21:00)
[2019-07-19 22:00] VITALS: BP 96/59
[2019-07-19] MEDS: guaiFENesin SYRUP 200 MG/10 ML UDC PO PRN (22:55)
[2019-07-19] MEDS: ADVAIR HFA 115/21MCG INHALER INH SCH (23:00)
[2019-07-20 02:00] VITALS: BP 150/77
[2019-07-20 04:26] LABS: HEMATOCRIT 37.6 % (36.0-47.0); MEAN CORPUSCULAR HEMOGLOBIN 27.6 pg (27.0-33.0); MEAN CORPUSCULAR HGB CONC 31.9 g/dl (32.0-36.5); MEAN CORPUSCULAR VOLUME 86.6 fl (80.0-96.0); PLATELET COUNT, AUTOMATED 212 10^3/uL (150-450); RED BLOOD COUNT 4.34 10^6/uL (4.00-5.40)
[2019-07-20 04:56] LABS: ALBUMIN 2.6 GM/DL (3.2-5.2); ALT/SGPT 21 U/L (12-78); BILIRUBIN,TOTAL 0.4 MG/DL (0.2-1.0); BLOOD UREA NITROGEN 18 MG/DL (7-18); CALCIUM LEVEL 9.1 MG/DL (8.8-10.2); CARBON DIOXIDE LEVEL 32 MEQ/L (21-32); CHLORIDE LEVEL 98 MEQ/L (98-107); CREATININE FOR GFR 0.74 MG/DL (0.55-1.30); ERYTHROCYTE SEDIMENTATION RATE 36 mm/hr (0-30); GLOMERULAR FILTRATION RATE > 60.0 (>39); GLUCOSE, FASTING 170 MG/DL (70-100); POTASSIUM SERUM 3.8 MEQ/L (3.5-5.1); SODIUM LEVEL 137 MEQ/L (136-145); TOTAL PROTEIN 5.9 GM/DL (6.4-8.2)
[2019-07-20 06:00] VITALS: BP 166/76
--- NOTE | 2019-07-20 06:50 | CR ---
DATE OF CONSULTATION: 07/19/2019 REASON FOR CONSULTATION: Right elbow pain and swelling. CONSULTING PHYSICIAN: Dr. Venus Gusman CHIEF COMPLAINT: Right elbow pain and swelling. HISTORY OF PRESENT ILLNESS: Meena Lerma is a 69-year-old, [id number] female with multiple medical comorbidities who has had a 6-day history of spontaneous swelling on the posterior aspect of the right elbow. The patient saw her primary care doctor about 4 or 5 days ago and was placed on oral clindamycin which she was on for the last 4 days. She did not get any significant improvement. Yesterday, she woke up and had worsening swelling and pain about the posterior right elbow and presented to the ER for evaluation. Prior to consultation the ER physician performed an aspiration of the fluid in the posterior aspect of the elbow, reportedly aspirating 10 mL of turbid fluid which was sent to lab for analysis. Then orthopedics was consulted for further management. The patient denies any associated fevers, chills, night sweats or other constitutional symptoms and has no other significant complaints. PAST MEDICAL HISTORY: Diabetes, chronic obstructive pulmonary disease (COPD), bronchitis, olecranon bursitis. MEDICATIONS: Include Lasix, aspirin, Spiriva, prednisone, Coreg, Zyrtec, Advair, gabapentin, simvastatin, spironolactone, sucralfate. PAST SURGICAL HISTORY: Includes bilateral shoulder surgery bilateral carpal tunnel release, bilateral hip replacement, cardiac stents x2, hysterectomy, cholecystectomy, and bladder repair. ALLERGIES: PENICILLIN causing hives. FAMILY HISTORY: Noncontributory. SOCIAL HISTORY: The patient lives independently. She does not smoke, she is a former smoker. She does not drink or use illicit drugs. REVIEW OF SYSTEMS: 14 review of systems is positive for cough and shortness of breath secondary to her COPD requiring oxygen, otherwise unremarkable. PHYSICAL EXAMINATION: Vital Signs: Temperature 99.4, heart rate 109, respiratory rate 28, blood pressure 104/67, pulse oximetry 93% on 2 liters nasal cannula. General: This is an morbidly obese female who appears her stated age in no acute distress. Neurologic: She is awake and oriented to person, place and time. She has intact sensory and motor function in her right upper extremity radial, median, ulnar and PIN distributions. Cardiovascular: She has 2+ radial pulse and brisk capillary refill to all digits of the right upper extremity. Musculoskeletal: Focused physical exam of the right upper extremity demonstrates full active elbow range of motion to flexion and extension and full pronation and supination. There is a focus of swelling and erythema with palpable fluctuance and bogginess over the olecranon, it is tender around this area. There is mild surrounding erythema around the olecranon bursa. There is no pain with passive range of motion of the elbow. No pain with axial load of the elbow. 5/5 motor strength with elbow flexion and extension. RADIOGRAPHY: Plain radiographs of right elbow demonstrate no evidence of elbow effusion. There is soft tissue swelling on the posterior aspect of the elbow. LABORATORY EVALUATION: Demonstrates a white blood cell count of 14.3, ESR 36, CRP 0.7. The aspirate that was done by the emergency room demonstrated a fluid white blood cell count of 227,000 with 80% neutrophils. ASSESSMENT: This is a 69-year-old female with septic right elbow olecranon bursitis. PLAN: Given that she underwent diagnostic therapeutic aspiration by the emergency department already and had failed oral antibiotics, the patient will be admitted to the hospitalist service for IV antibiotics. She will be placed on IV vancomycin. I placed her in a posterior splint for soft tissue rest. She should also receive anti-inflammatories. If patient responds to IV antibiotics, then open surgical debridement can be avoided. Open bursectomy can be considered if the patient fails to respond to targeted IV antibiotic therapy based on cultures. Cultures are pending. I discussed the patient's case with the hospitalist and we will continue to follow. CONSUELO
[2019-07-20] MEDS: ADVAIR HFA 115/21MCG INHALER INH SCH ×2 (07:32→20:30)
[2019-07-20] MEDS: TIOTROPIUM INHALER/CAPSULE (SPIRIVA) INH SCH (07:32)
[2019-07-20] MEDS: ACETAMINOPHEN TAB 650MG DOSE (2X325MG) PO SCH ×3 (08:07→21:29)
[2019-07-20] MEDS: VITAMIN D 1,000 INTERNATIONAL UNITS TABLET PO SCH (08:07)
[2019-07-20] MEDS: SPIRONOLACTONE 25 MG TAB PO SCH ×2 (08:07→16:56)
[2019-07-20] MEDS: ASPIRIN 81 MG ENTERIC TAB PO SCH (08:08)
[2019-07-20] MEDS: PANTOPRAZOLE 40MG TAB (PROTONIX) PO SCH ×2 (08:08→21:28)
[2019-07-20] MEDS: SUCRALFATE 1 GM TAB PO SCH ×4 (08:08→21:28)
[2019-07-20] MEDS: POTASSIUM CHLORIDE 10 MEQ SR TABLET PO SCH ×2 (08:08→21:28)
[2019-07-20] MEDS: OYSTER SHELL CALCIUM 500 MG TAB PO SCH ×2 (08:08→21:28)
[2019-07-20] MEDS: FUROSEMIDE 40 MG TAB PO SCH (08:09)
[2019-07-20] MEDS: predniSONE 20 MG TAB PO SCH (08:09)
[2019-07-20] MEDS: HumaLOG INSULIN (NovoLOG) PER UNIT SC SCH ×4 (08:10→21:27)
[2019-07-20] MEDS: FLUTICASONE PROP 0.05% NASAL SPRAY 16 GM (FLONASE) NARES SCH (08:10)
[2019-07-20] MEDS: CARVedilol 3.125 MG TAB PO SCH ×2 (08:15→21:30)
[2019-07-20] MEDS: traMADol 50 MG TAB PO PRN (08:16)
[2019-07-20] MEDS: IPRATROPIUM 0.5MG/ALBUTEROL 2.5MG INH SOL UD 3ML (DUONEB)(J7620) NEB SCH ×4 (09:00→21:00)
[2019-07-20] MEDS ORDERED: predniSONE 10 MG TAB PO SCH (09:00)
[2019-07-20 10:00] VITALS: BP 102/64
[2019-07-20 14:00] VITALS: BP 110/69
[2019-07-20] MEDS: VANCOMYCIN HCL 1,000 MG, VIAL MATE ADAPTER 1 EACH in D5W 250 ML IV SCH (14:14)
--- NOTE | 2019-07-20 15:37 | IPNPDOC ---
Date Seen The patient was seen on 07/20/19. Progress Note SUBJECTIVE: Pain, redness and swelling of right elbow improved since admission. WBC 11, decreased from 14K. Fluid aspirated showed high WBC, fluid cultures and gram stain pending. Tolerating Vancomycin well. Resumed home nebulizer treatments QID. LA wnl, sepsis resolved. Consulted Infectious disease as patient may need outpatient IV abx for several weeks and will need management as outpatient. MRSA neg, d/c contact precautions. Denies SOB, chest pain, n/v/d, fevers or chills. OBJECTIVE: VITAL SIGNS: Please see below PHYSICAL EXAMINATION: CONSTITUTIONAL: No acute distress, resting , AAO x 3 EYES: PERRLA, EOM intact HENT, MOUTH: Normocephalic, atraumatic, moist mucous membranes, NECK: increased neck diameter, SUPPLE, no JVD, no lymphadenopathy, no carotid bruit CV: Regular rate and rhythm, S1S2 normal, no murmurs/rubs/gallops RESPIRATORY: mild exp wheezing, no rales/rhonchi GI: BS positive in 4 quadrants, soft, nontender, nondistended, no rebound or guarding, no organomegaly : Deferred MUSCULOSKELETAL: Right elbow redness, warmth and tenderness to touch still present; however, decreased. Increased ROM of right elbow joint . No cyanosis, clubbing, swelling, joint deformity. +2-3 pitting edema in bilateral lower ext INTEGUMENTARY: Intact, no rashes, no lesions, no erythema NEUROLOGIC: Cranial Nerves II-XII are intact, no focal deficits PSYCHIATRIC: Mood and affect are normal LABORATORY DATA: Please see below IMAGING: No new imaging. ASSESSMENT: 69-year-old female admitted under inpatient status for septic bursitis of the right elbow, resolved sepsis. PLAN: 1. Septic bursitis of the right elbow, resolved sepsis. Aspirated fluid WBC 227, 600. Consulted Infectious disease as patient may need prolonged IV abx if she continues to improve without washout needed and PICC placement. C/w IV vancomycin 1 g IV every 12 hours, pain control, ESR and CRP testing Q48 hrs, telemetry monitoring. Uric acid, fluid crystal analysis, fluid culture from aspirated fluid, blood cultures 2 pending results. Orthopedic surgery consulted. 2. Mild COPD exacerbation, improving. Completing steroid taper. Currently on home amount of oxygen. Continue duonebs QID, home tapering dose of prednisone, home inhalers. 3. Obstructive sleep apnea. CPAP nightly, 4 L.. 4. Diabetes mellitus II. Holding home metformin and Januvia. BS improved today, likely due to treatment of infection. C/w insulin sliding scale, carbohydrate diet, before meals/at bedtime blood sugar checks. Hypoglycemic protocol in place 5. GERD. PPI BID 6. Small non-small cell lung cancer, primary right middle lobe of the lung. Status post 5 treatments of radiation. Patient follows with oncology. Cancer has been stable. 7. History of bladder cancer. Patient has been in remission for many years. 8. CAD status post stent. Denies chest pain, increased SOB. Continue with all home cardiac medications. 9. DVT prophylaxis. Enoxaparin 40 mg subcutaneous daily, SCDs. DISPOSITION: Currently admitted under inpatient status. Plan is to return home when medically stable. Will need all cultures to come back prior to discharge. VS, I&O, 24H, Fishbone Vital Signs/I&O Vital Signs Date Time Temp Pulse Resp B/P (MAP) Pulse Ox O2 Delivery O2 Flow Rate FiO2 07/20/19 14:00 97.9 68 17 110/69 (83) 96 Nasal Cannula 3.0 I&O- Last 24 Hours up to 6 AM 07/20/19 06:00 Intake Total 1420 ml Output Total 950 ml Balance 470 ml Laboratory Data 24H LABS Laboratory Tests 2 07/19/19 17:15: Immature Granulocyte % (Auto) 4.6H, Neutrophils (%) (Auto) 87.5H, Lymphocytes (%) (Auto) 4.5L, Monocytes (%) (Auto) 2.4, Eosinophils (%) (Auto) 0.1, Basophils (%) (Auto) 0.9, Neutrophils # (Auto) 12.5H, Lymphocytes # (Auto) 0.7L, Monocytes # (Auto) 0.4, Eosinophils # (Auto) 0.0, Basophils # (Auto) 0.1, Nucleated Red Blood Cells % (auto) 0.0, Erythrocyte Sedimentation Rate 36H, Anion Gap 9, Glomerular Filtration Rate 53.2, Uric Acid 4.6, Calcium Level 9.0, C-Reactive Protein, Quantitative 0.70H 07/19/19 17:18: Body Fluid WBC (Auto) 505603E, Body Fluid RBC (Auto) 394, Body Fluid Mononuclear Cells % Auto 19.7H, Fluid Polymorphonuclear Cell % Auto 80.3H, Body Fluid Crystals NONE SEEN, Body Fluid Crystal Source RT ELBOW, Body Fluid Uric Acid 4.6, Body Fluid Uric Acid Source RT ELBOW, Synovial Fluid Source RT ELBOW, Synovial Fluid Color PALE YELLOW, Synovial Fluid Appearance TURBID 07/19/19 19:33: Prothrombin Time 13.2, Prothromb Time International Ratio 1.03, Activated Partial Thromboplast Time 22.8L, Lactic Acid Level 4.6*H 07/19/19 20:23: Bedside Glucose (Misc Panel) 271H 07/19/19 23:00: Methicillin-Resist S.aureus DNA PCR NOT DETECTED 07/19/19 23:50: Lactic Acid Level 3.7*H 07/20/19 04:07: Nucleated Red Blood Cells % (auto) 0.0, Erythrocyte Sedimentation Rate 36H, Anion Gap 7L, Glomerular Filtration Rate > 60.0, Lactic Acid Followup at 4 Hours 1.9, Calcium Level 9.1, Total Bilirubin 0.4, Aspartate Amino Transf (AST/SGOT) 8, Alanine Aminotransferase (ALT/SGPT) 21, Alkaline Phosphatase 60, Total Protein 5.9L, Albumin 2.6L, Albumin/Globulin Ratio 0.79L 07/20/19 11:24: Bedside Glucose (Misc Panel) 142H CBC/BMP Laboratory Tests 07/19/19 17:15 07/20/19 04:07 Microbiology Microbiology 07/19/19 Gram Stain - Final, Resulted 07/19/19 Body Fluid Culture, Resulted Pending 07/19/19 Blood Culture, Received Pending 07/19/19 Blood Culture, Received Pending Venus Gusman MD Jul 20, 2019 15:37
[2019-07-20 16:00] VITALS: BP 101/64
[2019-07-20] MEDS: ENOXAPARIN 40 MG/0.4 ML SYRINGE (J1650) SC SCH (21:26)
[2019-07-20] MEDS: GABAPENTIN 300 MG CAP PO SCH (21:27)
[2019-07-20] MEDS: CETIRIZINE (ZyrTEC) 10 MG TAB PO SCH (21:27)
[2019-07-20] MEDS: SIMVASTATIN 40 MG TAB PO SCH (21:28)
[2019-07-20 22:00] VITALS: BP 101/64
[2019-07-21 06:00] VITALS: BP 99/61
[2019-07-21 07:20] LABS: ERYTHROCYTE SEDIMENTATION RATE 37 mm/hr (0-30)
[2019-07-21 07:30] LABS: ALBUMIN 2.7 GM/DL (3.2-5.2); ALT/SGPT 22 U/L (12-78); BILIRUBIN,TOTAL 0.5 MG/DL (0.2-1.0); BLOOD UREA NITROGEN 15 MG/DL (7-18); C REACTIVE PROTEIN QUANTITATIV 0.34 MG/DL (0.00-0.30); CALCIUM LEVEL 9.6 MG/DL (8.8-10.2); CARBON DIOXIDE LEVEL 36 MEQ/L (21-32); CHLORIDE LEVEL 95 MEQ/L (98-107); CREATININE FOR GFR 0.76 MG/DL (0.55-1.30); GLOMERULAR FILTRATION RATE > 60.0 (>39); GLUCOSE, FASTING 181 MG/DL (70-100); POTASSIUM SERUM 3.6 MEQ/L (3.5-5.1); SODIUM LEVEL 138 MEQ/L (136-145); TOTAL PROTEIN 5.8 GM/DL (6.4-8.2)
[2019-07-21] MEDS: ADVAIR HFA 115/21MCG INHALER INH SCH ×2 (07:46→20:25)
[2019-07-21] MEDS: TIOTROPIUM INHALER/CAPSULE (SPIRIVA) INH SCH (07:46)
[2019-07-21] MEDS: IPRATROPIUM 0.5MG/ALBUTEROL 2.5MG INH SOL UD 3ML (DUONEB)(J7620) NEB SCH ×4 (07:51→20:26)
[2019-07-21] MEDS: HumaLOG INSULIN (NovoLOG) PER UNIT SC SCH ×4 (07:58→20:49)
[2019-07-21] MEDS: SUCRALFATE 1 GM TAB PO SCH ×4 (07:58→20:49)
[2019-07-21] MEDS: FLUTICASONE PROP 0.05% NASAL SPRAY 16 GM (FLONASE) NARES SCH (08:19)
[2019-07-21] MEDS: VITAMIN D 1,000 INTERNATIONAL UNITS TABLET PO SCH (08:20)
[2019-07-21] MEDS: ASPIRIN 81 MG ENTERIC TAB PO SCH (08:20)
[2019-07-21] MEDS: ACETAMINOPHEN TAB 650MG DOSE (2X325MG) PO SCH (08:21)
[2019-07-21] MEDS: OYSTER SHELL CALCIUM 500 MG TAB PO SCH ×2 (08:21→20:50)
[2019-07-21] MEDS: PANTOPRAZOLE 40MG TAB (PROTONIX) PO SCH ×2 (08:21→20:49)
[2019-07-21] MEDS: POTASSIUM CHLORIDE 10 MEQ SR TABLET PO SCH ×2 (08:21→20:50)
[2019-07-21] MEDS: predniSONE 20 MG TAB PO SCH (08:21)
[2019-07-21] MEDS: SPIRONOLACTONE 25 MG TAB PO SCH (08:52)
[2019-07-21 08:53] LABS: BASO # 0.1 10^3/uL (0.0-0.2); EOS % 0.2 % (0.0-3.0); HEMOGLOBIN 12.7 g/dl (12.0-15.5); LYMPH # 1.2 10^3/uL (1.5-5.0); LYMPH % 14.6 % (24.0-44.0); MEAN CORPUSCULAR HEMOGLOBIN 27.4 pg (27.0-33.0); MEAN CORPUSCULAR HGB CONC 32.6 g/dl (32.0-36.5); MEAN CORPUSCULAR VOLUME 84.2 fl (80.0-96.0); MONO # 0.5 10^3/uL (0.0-0.8); MONO % 5.6 % (0.0-5.0); NEUTROPHILS # 6.2 10^3/uL (1.5-8.5); NEUTROPHILS % 73.8 % (36.0-66.0); PLATELET COUNT, AUTOMATED 241 10^3/uL (150-450); RED BLOOD COUNT 4.63 10^6/uL (4.00-5.40); WHITE BLOOD COUNT 8.4 10^3/uL (4.0-10.0)
[2019-07-21] MEDS: CARVedilol 3.125 MG TAB PO SCH ×2 (08:53→20:51)
[2019-07-21] MEDS: FUROSEMIDE 40 MG TAB PO SCH (08:53)
[2019-07-21] MEDS ORDERED: VANCOMYCIN HCL 1,000 MG, VIAL MATE ADAPTER 1 EACH in D5W 250 ML IV SCH (09:00)
[2019-07-21 10:00] VITALS: BP 94/60
[2019-07-21] MEDS: traMADol 50 MG TAB PO PRN (10:23)
[2019-07-21] MEDS: ceFAZolin SOD 2 GM in IV 1 EA IV SCH ×2 (12:20→20:48)
[2019-07-21] MEDS ORDERED: ACYCLOVIR 200 MG CAPSULE PO SCH (13:00)
[2019-07-21 14:00] VITALS: BP 107/59
--- NOTE | 2019-07-21 15:49 | IPNPDOC ---
Date Seen The patient was seen on 07/21/19. Progress Note SUBJECTIVE: Staph aureus cultured from elbow fluid, switched to Cefazolin by ID today. Suspicion for herpes zoster sacral area, started on acyclovir. Denies shortness of breath, fever, chest pain, n/v/d. OBJECTIVE: VITAL SIGNS: Please see below PHYSICAL EXAMINATION: CONSTITUTIONAL: No acute distress, resting , AAO x 3 EYES: PERRLA, EOM intact HENT, MOUTH: Normocephalic, atraumatic, moist mucous membranes, NECK: increased neck diameter, SUPPLE, no JVD, no lymphadenopathy, no carotid bruit CV: Regular rate and rhythm, S1S2 normal, no murmurs/rubs/gallops RESPIRATORY: mild exp wheezing, no rales/rhonchi GI: obese abdomen, BS positive in 4 quadrants, soft, nontender, nondistended, no rebound or guarding, no organomegaly : Deferred MUSCULOSKELETAL: Right elbow redness, warmth and tenderness to touch still present. Increased ROM of right elbow joint . No cyanosis, clubbing, swelling, joint deformity. +2 pitting edema in bilateral lower ext INTEGUMENTARY: blistering rash with erythematous base on sacral/buttocks area bilaterally. Nontender. NEUROLOGIC: Cranial Nerves II-XII are intact, no focal deficits PSYCHIATRIC: Mood and affect are normal LABORATORY DATA: Please see below IMAGING: No new imaging. ASSESSMENT: 69-year-old female admitted under inpatient status for septic bursitis of the right elbow, herpes zoster. PLAN: 1. Septic bursitis of the right elbow. Fluid culture from aspirated fluid of elbow growing staph aureus. Switched to cefazolin today, c/w pain control, ESR and CRP testing Q48 hrs, telemetry monitoring. blood cultures 2 NG thus far. Orthopedic surgery and ID following. 2. Herpes zoster, sacral/buttocks. Starting on acyclovir 800 mg Po 5x/day for 7 days. Contact precautions. 3. Mild COPD exacerbation, improving. Completing steroid taper. Currently on home amount of oxygen. Continue duonebs QID, home tapering dose of prednisone, home inhalers. 4. Obstructive sleep apnea. CPAP nightly, 4 L. 5. Diabetes mellitus II. BS elevated to >300 today, started on detemir QAM, starting in AM. C/w insulin sliding scale, carbohydrate diet, before meals/at bedtime blood sugar checks. Hypoglycemic protocol in place 6. GERD. PPI BID 7. Small non-small cell lung cancer, primary right middle lobe of the lung. Status post 5 treatments of radiation. Patient follows with oncology. Cancer has been stable. 8. History of bladder cancer. Patient has been in remission for many years. 9. CAD status post stent. Denies chest pain, increased SOB. Continue with all home cardiac medications. 10. DVT prophylaxis. Enoxaparin 40 mg subcutaneous daily, SCDs. DISPOSITION: Currently admitted under inpatient status. Plan is to return home when medically stable. VS, I&O, [facility]H, [facility] Vital Signs/I&O Vital Signs Date Time Temp Pulse Resp B/P (MAP) Pulse Ox O2 Delivery O2 Flow Rate FiO2 07/21/19 14:00 97.4 100 20 107/59 (75) 97 Nasal Cannula 3.0 I&O- Last 24 Hours up to 6 AM 07/21/19 06:00 Intake Total 2110 ml Output Total 4585 ml Balance -2475 ml Laboratory Data 24H LABS Laboratory Tests 2 07/20/19 17:06: Bedside Glucose (Misc Panel) 417H 07/20/19 20:49: Bedside Glucose (Misc Panel) 332H 07/21/19 06:50: Immature Granulocyte % (Auto) 4.8H, Neutrophils (%) (Auto) 73.8H, Lymphocytes (%) (Auto) 14.6L, Monocytes (%) (Auto) 5.6H, Eosinophils (%) (Auto) 0.2, Basophils (%) (Auto) 1.0, Neutrophils # (Auto) 6.2, Lymphocytes # (Auto) 1.2L, Monocytes # (Auto) 0.5, Eosinophils # (Auto) 0.0, Basophils # (Auto) 0.1, Nucleated Red Blood Cells % (auto) 0.0, Erythrocyte Sedimentation Rate 37H, Anion Gap 7L, Glomerular Filtration Rate > 60.0, Calcium Level 9.6, Total Bilirubin 0.5, Aspartate Amino Transf (AST/SGOT) 8, Alanine Aminotransferase (ALT/SGPT) 22, Alkaline Phosphatase 61, C-Reactive Protein, Quantitative 0.34H, Total Protein 5.8L, Albumin 2.7L, Albumin/Globulin Ratio 0.87L, Vancomycin Level Trough 7.1L 07/21/19 11:42: Bedside Glucose (Misc Panel) 324H CBC/BMP Laboratory Tests 07/21/19 06:50 Microbiology Microbiology 07/21/19 Gram Stain - Final, Resulted 07/21/19 Wound Culture, Resulted Pending 07/19/19 Gram Stain - Final, Complete 07/19/19 Body Fluid Culture - Final, Complete Staphylococcus Aureus 07/19/19 Blood Culture - Preliminary, Resulted No growth after 24 hours . All specim... 07/19/19 Blood Culture - Preliminary, Resulted No growth after 24 hours . All specim... Current Medications Current Medications Medications (Trade) Dose Ordered Sig/Chandler Route PRN Reason Start Time Stop Time Status Last Admin Dose Admin Acetaminophen (Tylenol Tab) 650 mg Q4H PRN PO PAIN OR FEVER 07/19/19 19:00 07/19/19 20:06 DC Acetaminophen (Tylenol Tab) 650 mg TID PO 07/19/19 20:15 07/21/19 11:00 DC 07/21/19 08:21 Acyclovir (Zovirax) 800 mg 5XD PO 07/21/19 13:00 07/27/19 13:00 07/21/19 14:13 Albuterol Sulfate (Proventil, Ventolin Hfa) 2 puff QID PRN INH SHORTNESS OF BREATH 07/19/19 19:00 Albuterol/ Ipratropium (Duoneb (Ipr 0.5mg/Alb 2.5mg)) 3 ml Q6HP PRN NEB SHORTNESS OF BREATH 07/19/19 19:30 07/20/19 09:33 DC Albuterol/ Ipratropium (Duoneb (Ipr 0.5mg/Alb 2.5mg)) 3 ml QID NEB 07/20/19 09:00 07/21/19 12:43 DC 07/21/19 11:29 Albuterol/ Ipratropium (Duoneb (Ipr 0.5mg/Alb 2.5mg)) 3 ml RQID NEB 07/21/19 16:00 07/21/19 15:20 Aspirin (Ecotrin) 81 mg DAILY PO 07/20/19 09:00 07/21/19 08:20 Calcium Carbonate (Oscal) 500 mg BID PO 07/19/19 21:00 07/21/19 08:21 Carvedilol (COReg) 3.125 mg BID PO 07/19/19 21:00 07/20/19 21:30 Cefazolin Sodium/ Dextrose 2 gm/IV Miscellaneous Supplies 50 ml @ 75 mls/hr Q8H IV 07/21/19 12:00 07/21/19 12:20 Cetirizine HCl (ZyrTEC) 10 mg QHS PO 07/19/19 21:00 07/20/19 21:27 Dextrose (Dextrose 50%) 25 ml ASDIRECTED PRN IV SEE LABEL COMMENTS 07/19/19 19:30 Enoxaparin Sodium (Lovenox) 40 mg DAILY@2100 SC 07/19/19 21:00 07/20/19 21:26 Fluticasone Propionate (Flonase 0.05% Nasal [place]) 2 spray DAILY NARES 07/20/19 09:00 07/21/19 08:19 Furosemide (Lasix) 40 mg DAILY PO 07/20/19 09:00 07/20/19 08:09 Gabapentin (Neurontin) 600 mg QHS PO 07/19/19 21:00 07/20/19 21:27 Glucagon (Glucagon) 1 mg ASDIRECTED PRN SC SEE LABEL COMMENTS 07/19/19 19:30 Glucose (Glucose) 16 GM ASDIRECTED PRN PO SEE LABEL COMMENTS 07/19/19 19:30 Guaifenesin (Robitussin) 10 ml Q4HP PRN PO COUGH 07/19/19 23:00 07/19/19 22:55 Home Med (Med Rec Complete!) ASDIRECTED XX 07/19/19 18:00 07/19/19 17:54 DC Insulin Detemir (Levemir Insulin) 8 units QAM SC 07/22/19 09:00 Insulin Human Lispro (HumaLOG INSULIN) SEE PROTOCOL TABLE AC SC 07/20/19 07:30 07/21/19 12:20 Insulin Human Lispro (HumaLOG INSULIN) See Protocol Table QHS SC 07/19/19 21:00 07/20/19 21:27 Pantoprazole Sodium (Protonix) 40 mg BID PO 07/19/19 21:00 07/21/19 08:21 Potassium Chloride (Micro-K Extencaps) 20 meq BID PO 07/19/19 21:00 07/21/19 08:21 Prednisone (Deltasone) 10 mg DAILY PO 07/20/19 09:00 07/19/19 19:39 DC Prednisone (Deltasone) 10 mg DAILY PO 07/23/19 09:00 Prednisone (Deltasone) 40 mg DAILY PO 07/20/19 09:00 07/22/19 09:01 07/21/19 08:21 Salmeterol Xinafoate/ Fluticasone (Advair Hfa 115/ 21) 2 puff RBID INH 07/19/19 20:00 07/21/19 07:46 Simvastatin (Zocor) 40 mg QHS PO 07/19/19 21:00 07/20/19 21:28 Sodium Chloride 1,000 ml @ 80 mls/hr [id number] IV 07/19/19 19:30 07/20/19 08:09 DC 07/19/19 21:00 Spironolactone (Aldactone) 25 mg BID PO 07/19/19 21:00 07/19/19 19:54 DC Spironolactone (Aldactone) 25 mg BID@0900,1700 PO 07/20/19 09:00 07/21/19 08:16 DC 07/20/19 16:56 Spironolactone (Aldactone) 25 mg DAILY PO 07/21/19 09:00 Sucralfate (Carafate) 1 gm ACHS PO 07/19/19 21:00 07/21/19 12:20 Tiotropium [place] (Spiriva Handihaler) 1 inhalation DAILY@0800 INH 07/20/19 08:00 07/21/19 07:46 Tramadol HCl (Ultram) 50 mg TID PRN PO PAIN 07/19/19 19:00 07/21/19 10:23 Vancomycin HCl 1000 mg/IV Miscellaneous Supplies 1 each/ Dextrose 270 ml @ 270 mls/hr Q12H IV 07/21/19 09:00 07/21/19 10:37 DC 07/21/19 08:32 Vancomycin HCl 1000 mg/IV Miscellaneous Supplies 1 each/ Dextrose 270 ml @ 270 mls/hr Q18H IV 07/19/19 20:00 07/21/19 08:21 DC 07/20/19 14:14 Vancomycin HCl 1000 mg/IV Miscellaneous Supplies 1 each/ Dextrose 270 ml @ 270 mls/hr Q24H IV 07/19/19 20:00 07/19/19 20:12 DC Vitamin D (Vitamin D) 2,000 units DAILY PO 07/20/19 09:00 07/21/19 08:20 Allergies Coded Allergies: Penicillins (Verified Allergy, Intermediate, Hives, 09/06/18) Venus Gusman MD Jul 21, 2019 15:48
[2019-07-21 18:00] VITALS: BP 93/54
[2019-07-21] MEDS: guaiFENesin SYRUP 200 MG/10 ML UDC PO PRN (20:48)
[2019-07-21] MEDS: ENOXAPARIN 40 MG/0.4 ML SYRINGE (J1650) SC SCH (20:49)
[2019-07-21] MEDS: GABAPENTIN 300 MG CAP PO SCH (20:49)
[2019-07-21] MEDS: CETIRIZINE (ZyrTEC) 10 MG TAB PO SCH (20:50)
[2019-07-21] MEDS: SIMVASTATIN 40 MG TAB PO SCH (20:50)
[2019-07-21] MEDS: valACYclovir HCL 500 MG TAB PO SCH (21:00)
--- NOTE | 2019-07-21 21:52 | CR ---
DATE OF CONSULTATION: 07/21/2019 CONSULTATION REPORT FOR: Dr. Gusman REASON FOR CONSULTATION: Evaluation of right elbow olecranon bursitis and vesicular rash on buttocks. HISTORY OF PRESENT ILLNESS: Mrs. Lerma is a pleasant 69-year-old female who presented to the emergency room complaining of pain in her right elbow that presented acutely. She stated the pain was about 5/10. She went to an urgent care provider and had been treated for six days with oral clindamycin without improvement. The patient came to our emergency room (ER) because of worsening swelling and extension to the arm. She denied any fever or chills. No nausea, vomiting or diarrhea. No abdominal pain. The patient has chronic obstructive pulmonary disease (COPD) and is oxygen dependent on 2-3 liters nasal cannula which has not changed. She has a chronic cough which is unchanged. She feels much better in the 48 hours she has been here and would like to go home. In the ER, she had a temperature of 99.4. C-reactive protein (CRP) slightly elevated at 0.76. Aspiration of the right elbow yielded 30 mL of pale yellow turbid fluid which was sent for culture and was positive for methicillin-sensitive Staphylococcus aureus (MSSA). PAST MEDICAL HISTORY: Significant for: 1. Non-small cell lung cancer, primary right middle lung, status post five radiation treatments in [place]. 2. Chronic obstructive pulmonary disease (COPD) on 2-3 liters nasal cannula. 3. Chronic respiratory failure. 4. Obstructive sleep apnea. 5. Diabetes, type 2 with neuropathy. 6. Coronary artery disease status post stent in 2008. 7. History of bladder cancer treated by Dr. Bonilla with Bacillus Calmette-Joel (BCG), now gets cystoscopy by Dr. Fuentes every six months. 8. History of tobacco abuse, quit a year ago. PAST SURGICAL HISTORY: 1. Partial hysterectomy. 2. Cholecystectomy. 3. Carpal tunnel surgery. 4. Foot surgery. 5. Bladder suspension. 6. Right shoulder tear repair. 7. Bilateral hip replacement. 8. Bladder mass biopsy. 9. Transurethral resection of bladder tumor (TURBT). FAMILY HISTORY: Mother of breast cancer at 63 and father of heart disease in his 90s. Her sister had lung cancer. SOCIAL HISTORY: She smoked 60-pack year and quit a year ago. She denies any alcohol or drug use. She follows up with Dr. Sosa and Dr. Dow. ALLERGIES: PENICILLIN gave her hives many many years ago. Usually, she tolerates quinolones very well. Does not remember if she has ever taken cephalosporins. LABORATORY DATA: White count yesterday was 14.3, today 8.4, hemoglobin 12.7, hematocrit 39, platelets 241, 74% neutrophils, 50% lymphocytes, 5% monocytes. Sodium 138, potassium 3.6, chloride 95, bicarbonate 36, BUN 15, creatinine 0.76, glucose 181, lactic acid on admission was 4.6, today is 1.9, calcium 9.6, AST 8, ALT 22, CRP 0.34, down from 0.7. Blood cultures, two sets were negative. Synovial bursal fluid was MSSA, resistant to erythromycin and penicillin, sensitive to clindamycin and oxacillin. IMAGING STUDIES: Elbow x-ray showed posterior swelling consistent with bursitis of the olecranon, subtle spurring of the coronoid process. Chest x-ray: Chronic-appearing interstitial lung disease. No acute infiltrate. PHYSICAL EXAMINATION: On physical examination, she is a pleasant female in no acute distress on oxygen, speaks in full sentences. Cushingoid facies. HEART: Normal S1, S2, distant. No murmurs appreciated. LUNGS: Diminished air entry bilaterally. No wheezes or rhonchi. ABDOMEN: Morbidly obese, soft, nontender. EXTREMITIES: +2 pitting edema bilaterally. No rashes. Diminished pulses bilaterally. SKIN: No rashes of the knees. Elbows: Both are very dry and thickened. Right elbow has olecranon bursitis, erythema and tenderness, but full range of motion of the elbow with slightly surrounding cellulitis. There is still a fluctuant bursa that is mildly tender. NEUROLOGIC: Intact. Motor strength is normal. PSYCHIATRIC: Normal psychiatric examination. BUTTOCK: She has a vesicular lesion on her left buttock area with at least 10- 15 blisters. The patient recalls having a similar break out in February 2019. MEDICATIONS: - acyclovir 800 mg by mouth five times a day - vancomycin 1 gram IV every 12 hours, was switched today to cefazolin 2 grams IV every eight hours - Aldactone 25 mg by mouth daily - aspirin 81 mg by mouth daily - vitamin D 2000 units daily - Flonase two sprays daily - furosemide 40 mg by mouth daily - prednisone 40 mg by mouth daily from 07/20/2019 through 07/22/2019 and tomorrow will be down to 10 mg - Spiriva one inhalation daily - guaifenesin 10 mg every four hours as needed - calcium carbonate 500 mg by mouth twice a day - Coreg 3.125 mg by mouth twice a day - cetirizine 10 mg by mouth at bedtime - gabapentin 600 mg by mouth at bedtime - potassium chloride 20 mEq by mouth twice a day - simvastatin 40 mg by mouth at bedtime - Carafate 1 gram before meals and at bedtime - Protonix 40 mg by mouth twice a day - insulin sliding scale - Advair two puffs inhaled twice a day - albuterol two puffs four times a day as needed - tramadol 50 mg by mouth three times a day as needed IMPRESSION: 1. This is a 69-year-old female admitted with olecranon bursitis of the right elbow, probably related to micro trauma. The patient sits with her elbows always up on a table and she has very dry skin at the elbows. She is doing much better after IV antibiotics 48 hours. She has methicillin-sensitive Staphylococcus aureus (MSSA) and therefore was switched to cefazolin 2 grams every eight hours. She has a remote history of penicillin allergy with hives. She was advised to make sure she tells the nurse if she has any hives or shortness of breath. She has tolerated the first dose. 2. Vesicular Rash on the buttock area, could be shingles versus herpes as it has recurred a second time in the past four months and therefore herpes simplex virus (HSV) could be also in the differential. The patient has been started on acyclovir. PLAN: 1. Continue with IV cefazolin 2 grams IV every eight hours. Monitor for penicillin allergy. 2. Discontinue acyclovir. It is very inconvenient four tablets five times a day and switch instead to Valtrex 1 gram by mouth three times a day for better bioavailability and ease of administration. 3. Swab the buttock for herpes simplex virus (HSV) and varicella-zoster virus (VCV) PCR. I have discussed the order with her nurse who has already done a bacterial culture. 4. The patient can probably go home tomorrow with Keflex 500 mg by mouth four times a day for two weeks along with Valtrex 1 gram by mouth three times a day. She could followup with her primary care or in my office in 7-10 days. CONSUELO
[2019-07-21 22:00] VITALS: BP 91/60
[2019-07-22 02:00] VITALS: BP 91/53
[2019-07-22] MEDS: ceFAZolin SOD 2 GM in IV 1 EA IV SCH ×3 (03:15→20:16)
[2019-07-22] MEDS: valACYclovir HCL 500 MG TAB PO SCH ×3 (05:07→22:04)
[2019-07-22 06:00] VITALS: BP 133/57
[2019-07-22 06:06] LABS: BASO # 0.1 10^3/uL (0.0-0.2); BASO % 0.7 % (0.0-1.0); EOS % 0.2 % (0.0-3.0); HEMATOCRIT 38.5 % (36.0-47.0); HEMOGLOBIN 12.4 g/dl (12.0-15.5); LYMPH # 1.4 10^3/uL (1.5-5.0); LYMPH % 13.3 % (24.0-44.0); MEAN CORPUSCULAR HEMOGLOBIN 27.4 pg (27.0-33.0); MEAN CORPUSCULAR HGB CONC 32.2 g/dl (32.0-36.5); MEAN CORPUSCULAR VOLUME 85.2 fl (80.0-96.0); MONO # 0.4 10^3/uL (0.0-0.8); MONO % 4.3 % (0.0-5.0); NEUTROPHILS % 78.4 % (36.0-66.0); PLATELET COUNT, AUTOMATED 228 10^3/uL (150-450); RED BLOOD COUNT 4.52 10^6/uL (4.00-5.40); WHITE BLOOD COUNT 10.2 10^3/uL (4.0-10.0)
[2019-07-22 06:20] LABS: ALBUMIN 2.6 GM/DL (3.2-5.2); ALT/SGPT 20 U/L (12-78); BILIRUBIN,TOTAL 0.3 MG/DL (0.2-1.0); BLOOD UREA NITROGEN 14 MG/DL (7-18); C REACTIVE PROTEIN QUANTITATIV < 0.30 MG/DL (0.00-0.30); CALCIUM LEVEL 9.1 MG/DL (8.8-10.2); CARBON DIOXIDE LEVEL 29 MEQ/L (21-32); CHLORIDE LEVEL 101 MEQ/L (98-107); CREATININE FOR GFR 0.84 MG/DL (0.55-1.30); GLOMERULAR FILTRATION RATE > 60.0 (>39); GLUCOSE, FASTING 165 MG/DL (70-100); POTASSIUM SERUM 4.3 MEQ/L (3.5-5.1); SODIUM LEVEL 138 MEQ/L (136-145); TOTAL PROTEIN 5.7 GM/DL (6.4-8.2)
[2019-07-22] MEDS ORDERED: NS 1,000 ML IV SCH (06:30)
[2019-07-22 06:44] LABS: ERYTHROCYTE SEDIMENTATION RATE 27 mm/hr (0-30)
[2019-07-22] MEDS: TIOTROPIUM INHALER/CAPSULE (SPIRIVA) INH SCH (07:13)
[2019-07-22] MEDS: IPRATROPIUM 0.5MG/ALBUTEROL 2.5MG INH SOL UD 3ML (DUONEB)(J7620) NEB SCH ×5 (07:13→22:01)
[2019-07-22] MEDS: ADVAIR HFA 115/21MCG INHALER INH SCH ×2 (07:13→20:08)
[2019-07-22] MEDS: SPIRONOLACTONE 25 MG TAB PO SCH ×2 (08:10→08:15)
[2019-07-22] MEDS: OYSTER SHELL CALCIUM 500 MG TAB PO SCH ×2 (08:10→20:17)
[2019-07-22] MEDS: VITAMIN D 1,000 INTERNATIONAL UNITS TABLET PO SCH (08:10)
[2019-07-22] MEDS: FUROSEMIDE 40 MG TAB PO SCH ×2 (08:10→08:15)
[2019-07-22] MEDS: predniSONE 20 MG TAB PO SCH (08:10)
[2019-07-22] MEDS: ASPIRIN 81 MG ENTERIC TAB PO SCH (08:10)
[2019-07-22] MEDS: PANTOPRAZOLE 40MG TAB (PROTONIX) PO SCH ×2 (08:11→20:17)
[2019-07-22] MEDS: SUCRALFATE 1 GM TAB PO SCH ×4 (08:11→20:17)
[2019-07-22] MEDS: POTASSIUM CHLORIDE 10 MEQ SR TABLET PO SCH ×2 (08:11→20:17)
[2019-07-22] MEDS: HumaLOG INSULIN (NovoLOG) PER UNIT SC SCH ×4 (08:12→20:16)
[2019-07-22] MEDS: FLUTICASONE PROP 0.05% NASAL SPRAY 16 GM (FLONASE) NARES SCH (08:15)
[2019-07-22] MEDS: CARVedilol 3.125 MG TAB PO SCH ×2 (08:15→20:18)
[2019-07-22] MEDS ORDERED: LEVEMIR (INSULIN DETEMIR) 1 UNITS/0.01ML SC SCH (09:00)
[2019-07-22] MEDS: traMADol 50 MG TAB PO PRN ×2 (09:25→14:18)
[2019-07-22 10:00] VITALS: BP 108/67
[2019-07-22 14:00] VITALS: BP 106/88
[2019-07-22] MEDS ORDERED: LIDOCAINE 1% MDV 20ML VIAL As Ordered ONE (16:21)
--- NOTE | 2019-07-22 17:39 | IPN ---
INFECTIOUS DISEASE PROGRESS NOTE: DATE: 07/22/2019 Meena is examined in her room. She is sitting up in the chair and was scheduled to go home today, however, reports she has increasing pain and swelling of her right elbow. She is otherwise doing fine. No fever, chills, nausea, vomiting, abdominal pain or any other skin rashes or joint issues. She is ambulating working with physical therapy, tolerating all medications well. PHYSICAL EXAMINATION: VITALS: Temperature 98.1 with a T-max in the past 24 hours being 98.3. Pulse 101, respirations 18, BP 106/88, maximum 94. Pulse ox 97% on her chronic 3 liters nasal cannula. She is sitting up comfortably in chair. No acute distress, fully alert and oriented times three. Appropriately conversant. HEAD: Normocephalic, atraumatic with supple neck. Moist mucous membranes. No appreciable JVD. HEART: Regular rate and rhythm without any appreciable murmurs. LUNGS: Lung sounds are diminished throughout. No appreciable wheezing, rhonchi or rales. No accessory muscle use. ABDOMEN: Soft and nontender. Has 1 to 2+ pitting edema bilateral lower extremities. No visible skin rashes. Full range of motion all extremities, however, right arm is limited in flexion and extension due to pain and swelling at the elbow. No visible drainage or pus, is tender to palpation with overlying erythema. Buttock has vesicular lesion on the right buttock with multiple healing blisters. No visible drainage at time of exam. LABS: WBC 10.2, hemoglobin and hematocrit 12.4 and 38.5, platelets 228. ESR down to 27 from 37 yesterday. CRP is normal today from 0.34 yesterday. Sodium and potassium 138 and 4.3. BUN and creatinine 14 and 0.84. Lactate this morning 3.3. Upon recheck is 3.1. Buttocks testing for HSV is pending. Wound culture gram stain pending. IMPRESSION: This is a 69-year-old female with olecranon bursitis of the right elbow, possibly from her daily activities with microtrauma. She is afebrile and otherwise doing well. Is status post 2 days of IV vancomycin which has been discontinued. Currently on day 2 of IV cephazolin and day 2 of by mouth Valtrex. She was found to have methicillin-susceptible Staphylococcus aureus (MSSA) in her synovial fluid drainage of the right elbow and also noted to have vesicular lesions from the buttocks concerning for possible HSV versus VZV. PLAN: Given her increasing pain and lactate and swelling of the elbow recommend arthrocentesis and monitor. She is tolerating medications well. Okay to continue IV cephazolin while she is here. When she is ready for discharge can switch over to Keflex 500 mg by mouth four times a day for 2 weeks along with Valtrex 1 gram by mouth three times a day on discharge and followup outpatient with PCP or in Dr. Bethea's office. Currently HSV and buttock cultures are pending. My faculty preceptor for this patient encounter was physically present during the encounter and was fully available. All aspects of the patient interview, examination, medical decision making process, and medical care plan development were reviewed and approved by the faculty preceptor. The faculty preceptor is aware and concurs with the plan as stated in the body of this note and will attest to such by his/her co-signature. CONSUELO
[2019-07-22 18:00] VITALS: BP 100/59
--- NOTE | 2019-07-22 18:38 | IPNPDOC ---
Date Seen The patient was seen on 07/22/19. Progress Note SUBJECTIVE: Right elbow more tender, red, tense to touch, warm today. Orthopedic surgery lanced elbow and patient felt much relief after. Continuing with current abx treatment. Patient denies chills, n/v/d, fever. OBJECTIVE: VITAL SIGNS: Please see below PHYSICAL EXAMINATION: CONSTITUTIONAL: No acute distress, resting , AAO x 3 EYES: PERRLA, EOM intact HENT, MOUTH: Normocephalic, atraumatic, moist mucous membranes, NECK: increased neck diameter, SUPPLE, no JVD, no lymphadenopathy, no carotid bruit CV: Regular rate and rhythm, S1S2 normal, no murmurs/rubs/gallops RESPIRATORY: mild exp wheezing, no rales/rhonchi GI: obese abdomen, BS positive in 4 quadrants, soft, nontender, nondistended, no rebound or guarding, no organomegaly : Deferred MUSCULOSKELETAL: Tense, warm right elbow redness with increased tenderness. Decreased ROM today . No cyanosis, clubbing, swelling, joint deformity. +2 pitting edema in bilateral lower ext INTEGUMENTARY: blistering rash with erythematous base on sacral/buttocks area bilaterally, in various stages of healing. Nontender. NEUROLOGIC: Cranial Nerves II-XII are intact, no focal deficits PSYCHIATRIC: Mood and affect are normal LABORATORY DATA: Please see below IMAGING: No new imaging. ASSESSMENT: 69-year-old female admitted under inpatient status for septic bursitis of the right elbow, herpes zoster. PLAN: 1. Septic bursitis of the right elbow. S/p lancing of elbow today providing some relief of pain per patient. C/w cefazolin IV for now. Per ID, when she is ready for discharge can switch over to Keflex 500 mg by mouth four times a day for 2 weeks and followup outpatient with PCP or in Dr. Beteha's office. C/w pain control, ESR and CRP testing Q48 hrs, telemetry monitoring. Blood cultures 2 NG thus far. 2. Herpes zoster, sacral/buttocks. Valtrex 1 gram by mouth three times a day on discharge. Contact precautions. 3. Mild COPD exacerbation. On home amount of O2. Completing steroid taper. Currently on home amount of oxygen. Continue duonebs QID, home tapering dose of prednisone, home inhalers. 4. Obstructive sleep apnea. CPAP nightly, 4 L. 5. Diabetes mellitus II. BS better controlled on detemir QAM. C/w insulin sliding scale, carbohydrate diet, before meals/at bedtime blood sugar checks. Hypoglycemic protocol in place 6. GERD. PPI BID 7. Small non-small cell lung cancer, primary right middle lobe of the lung. Status post 5 treatments of radiation. Patient follows with oncology. Cancer has been stable. 8. History of bladder cancer. Patient has been in remission for many years. 9. CAD status post stent. Denies chest pain, increased SOB. Continue with all home cardiac medications. 10. DVT prophylaxis. Enoxaparin 40 mg subcutaneous daily, SCDs. DISPOSITION: Currently admitted under inpatient status. Plan is to return home when medically stable. Given her increasing pain and lactate and swelling of the elbow recommend arthrocentesis and monitor. She is tolerating medications well. Okay to continue IV cephazolin while she is here. Currently HSV and buttock cultures are pending. My faculty preceptor for this patient encounter was physically present during the encounter and was fully available. All aspects of the patient interview, examination, medical decision making process, and medical care plan development were reviewed and approved by the faculty preceptor. The faculty preceptor is aware and concurs with the plan as stated in the body of this note and will attest to such by his/her co-signature. VS, I&O, 24H, Fishbone Vital Signs/I&O Vital Signs Date Time Temp Pulse Resp B/P (MAP) Pulse Ox O2 Delivery O2 Flow Rate FiO2 07/22/19 18:00 96.9 92 20 100/59 (73) 96 Nasal Cannula 3.0 I&O- Last 24 Hours up to 6 AM 07/22/19 06:00 Intake Total 1526 ml Output Total 2300 ml Balance -774 ml Laboratory Data 24H LABS Laboratory Tests 2 07/21/19 20:41: Bedside Glucose (Misc Panel) 399H 07/22/19 05:47: Immature Granulocyte % (Auto) 3.1H, Neutrophils (%) (Auto) 78.4H, Lymphocytes (%) (Auto) 13.3L, Monocytes (%) (Auto) 4.3, Eosinophils (%) (Auto) 0.2, Basophils (%) (Auto) 0.7, Neutrophils # (Auto) 8.0, Lymphocytes # (Auto) 1.4L, Monocytes # (Auto) 0.4, Eosinophils # (Auto) 0.0, Basophils # (Auto) 0.1, Nucleated Red Blood Cells % (auto) 0.2H, Erythrocyte Sedimentation Rate 27, Anion Gap 8, Glomerular Filtration Rate > 60.0, Lactic Acid Level 3.3*H, Calcium Level 9.1, Total Bilirubin 0.3, Aspartate Amino Transf (AST/SGOT) 12, Alanine Aminotransferase (ALT/SGPT) 20, Alkaline Phosphatase 60, C-Reactive Protein, Quantitative < 0.30, Total Protein 5.7L, Albumin 2.6L, Albumin/Globulin Ratio 0.84L 07/22/19 10:03: Lactic Acid Followup at 4 Hours 3.1*H 07/22/19 11:26: Bedside Glucose (Misc Panel) 304H 07/22/19 16:36: Bedside Glucose (Misc Panel) 350H CBC/BMP Laboratory Tests 07/22/19 05:47 Microbiology Microbiology 07/21/19 Herpes Simplex Virus I (PCR), Received Pending 07/21/19 Herpes Simplex Virus II (PCR), Received Pending 07/21/19 Gram Stain - Final, Resulted 07/21/19 Wound Culture, Resulted Pending 07/19/19 Gram Stain - Final, Complete 07/19/19 Body Fluid Culture - Final, Complete Staphylococcus Aureus 07/19/19 Blood Culture - Preliminary, Resulted No Growth after 72 hours. All specime... 07/19/19 Blood Culture - Preliminary, Resulted No Growth after 72 hours. All specime... Venus Gusman MD Jul 22, 2019 18:38
[2019-07-22] MEDS: SIMVASTATIN 40 MG TAB PO SCH (20:17)
[2019-07-22] MEDS: CETIRIZINE (ZyrTEC) 10 MG TAB PO SCH (20:17)
[2019-07-22] MEDS: ENOXAPARIN 40 MG/0.4 ML SYRINGE (J1650) SC SCH (20:18)
[2019-07-22] MEDS: GABAPENTIN 300 MG CAP PO SCH (20:19)
[2019-07-22 22:00] VITALS: BP 115/77
[2019-07-22] MEDS: guaiFENesin SYRUP 200 MG/10 ML UDC PO PRN (22:03)
--- NOTE | 2019-07-23 00:09 | RO ---
DATE OF PROCEDURE: 07/22/2019 PREPROCEDURE DIAGNOSIS: Septic olecranon bursitis right elbow. POSTPROCEDURE DIAGNOSIS: Septic olecranon bursitis right elbow. PROCEDURE: Bedside open irrigation, debridement and lancing of right septic olecranon bursitis. SURGEON: Dr. Leif Carias SECURITIES BROKER: None. ANESTHESIA: Local. COMPLICATIONS: None. FINDINGS: She had approximately 30 mL of fluid drained from the incision that was yellowish and serous in color. COMPLICATIONS: None. DESCRIPTION OF PROCEDURE: She was on IV Kefzol, and her induration and erythema had dramatically improved, but she was left with painful swollen mass olecranon bursa, and I was asked by the patient and the infectious disease home performance consultant to drain this. We elected to do so at the bedside. The patient consented, signed the consent, and the time-out was appropriately done, signed off, I marked the right elbow. Her right elbow was carefully prepped with Chloraprep and then with the assistance of an operating room (OR) tech from the operating room, we sterilely draped her right elbow. 1% lidocaine was infiltrated in the skin locally over the swollen olecranon bursal sac and an 11 blade was used to open this area, making about a three-quarters of an inch incision. We exsanguinated about 20-30 mL of serous yellowish fluid and then used sterile saline with a syringe field support engineer to irrigate out the olecranon bursal sac. There was some purulent material that was also exsanguinated. I used a hemostat also to spread and make sure adequate drainage was obtained. I had her flex and extend the elbow. She had instant relief of the pain and discomfort. She was quite satisfied with that, and then the wound was sterilely dressed with orthopedic prep gauze, ABD, and a stockinette and light compression with an Sandro wrap. Plan is just to do dressing changes as needed for soaking through and continue with IV antibiotics per the recommendations from the infectious disease doctor, and I can see her back in the office in 7-10 days to assess her healing.
[2019-07-23] MEDS: ceFAZolin SOD 2 GM in IV 1 EA IV SCH ×2 (03:28→12:00)
[2019-07-23] MEDS: valACYclovir HCL 500 MG TAB PO SCH ×2 (05:49→12:16)
[2019-07-23 06:00] VITALS: BP 128/72
[2019-07-23 06:05] LABS: BASO # 0.1 10^3/uL (0.0-0.2); BASO % 0.5 % (0.0-1.0); EOS % 0.2 % (0.0-3.0); HEMATOCRIT 38.6 % (36.0-47.0); HEMOGLOBIN 12.2 g/dl (12.0-15.5); LYMPH # 1.3 10^3/uL (1.5-5.0); LYMPH % 12.3 % (24.0-44.0); MEAN CORPUSCULAR HEMOGLOBIN 27.5 pg (27.0-33.0); MEAN CORPUSCULAR HGB CONC 31.6 g/dl (32.0-36.5); MEAN CORPUSCULAR VOLUME 86.9 fl (80.0-96.0); MONO # 0.5 10^3/uL (0.0-0.8); MONO % 4.6 % (0.0-5.0); NEUTROPHILS # 8.6 10^3/uL (1.5-8.5); NEUTROPHILS % 79.5 % (36.0-66.0); PLATELET COUNT, AUTOMATED 209 10^3/uL (150-450); RED BLOOD COUNT 4.44 10^6/uL (4.00-5.40); WHITE BLOOD COUNT 10.8 10^3/uL (4.0-10.0)
[2019-07-23 06:32] LABS: ALBUMIN 2.6 GM/DL (3.2-5.2); ALT/SGPT 21 U/L (12-78); BILIRUBIN,TOTAL 0.4 MG/DL (0.2-1.0); BLOOD UREA NITROGEN 16 MG/DL (7-18); CALCIUM LEVEL 9.4 MG/DL (8.8-10.2); CARBON DIOXIDE LEVEL 34 MEQ/L (21-32); CHLORIDE LEVEL 100 MEQ/L (98-107); CREATININE FOR GFR 0.75 MG/DL (0.55-1.30); GLOMERULAR FILTRATION RATE > 60.0 (>39); GLUCOSE, FASTING 141 MG/DL (70-100); POTASSIUM SERUM 3.8 MEQ/L (3.5-5.1); SODIUM LEVEL 138 MEQ/L (136-145)
[2019-07-23] MEDS: ADVAIR HFA 115/21MCG INHALER INH SCH (07:12)
[2019-07-23] MEDS: IPRATROPIUM 0.5MG/ALBUTEROL 2.5MG INH SOL UD 3ML (DUONEB)(J7620) NEB SCH ×2 (07:13→11:12)
[2019-07-23] MEDS: TIOTROPIUM INHALER/CAPSULE (SPIRIVA) INH SCH (07:13)
[2019-07-23] MEDS: ASPIRIN 81 MG ENTERIC TAB PO SCH (08:31)
[2019-07-23] MEDS: VITAMIN D 1,000 INTERNATIONAL UNITS TABLET PO SCH (08:31)
[2019-07-23] MEDS: POTASSIUM CHLORIDE 10 MEQ SR TABLET PO SCH (08:31)
[2019-07-23] MEDS: HumaLOG INSULIN (NovoLOG) PER UNIT SC SCH ×2 (08:31→12:16)
[2019-07-23 08:32] VITALS: BP 128/72
[2019-07-23] MEDS: OYSTER SHELL CALCIUM 500 MG TAB PO SCH (08:32)
[2019-07-23] MEDS: FUROSEMIDE 40 MG TAB PO SCH (08:32)
[2019-07-23] MEDS: CARVedilol 3.125 MG TAB PO SCH (08:32)
[2019-07-23] MEDS: SPIRONOLACTONE 25 MG TAB PO SCH (08:32)
[2019-07-23] MEDS: PANTOPRAZOLE 40MG TAB (PROTONIX) PO SCH (08:32)
[2019-07-23] MEDS: SUCRALFATE 1 GM TAB PO SCH ×2 (08:32→12:16)
[2019-07-23] MEDS: FLUTICASONE PROP 0.05% NASAL SPRAY 16 GM (FLONASE) NARES SCH (08:33)
[2019-07-23] MEDS ORDERED: LEVEMIR (INSULIN DETEMIR) 1 UNITS/0.01ML SC SCH (09:00)
[2019-07-23] MEDS ORDERED: predniSONE 10 MG TAB PO SCH (09:00)
[2019-07-23 10:00] VITALS: BP 128/70
[2019-07-23] MEDS ORDERED: PROB1CAP10 PO (11:31)
[2019-07-23] MEDS ORDERED: KEFL500C17 PO (11:31)
[2019-07-23] MEDS ORDERED: VALA500T5 PO (11:31)
--- NOTE | 2019-07-23 14:02 | DS.PDOC ---
Discharge Summary General Date of Admission Jul 19, 2019 at 18:46 Date of Discharge 07/23/19 Primary Care Physician: NERISSA MILLER DO Attending Physician: Venus Gusman MD Discharge Summary HISTORY OF PRESENT ILLNESS: The patient is a 69-year-old female with past history of non-small cell lung cancer, COPD on 2 L distal cannula, obstructive sleep apnea, diabetes mellitus, CAD status post stents, history of bladder cancer who presented to [facility] emergency room with the chief complaint of increasing right elbow pain and swelling. Per patient, swelling and pain on her right elbow began one week ago. She went to the urgent care on [address] and was started on oral clindamycin. She states initially her right elbow pain was 5 out of 10 on the day she went to urgent care; however she had increasing pain over this past 6 days. She noticed increased redness and swelling also over the right elbow. She denied fevers, chills, nausea, vomiting, diarrhea, abdominal pain. She has no history of having had swelling in her right elbow; however, she has a questionable history of MRSA. Today due to worsening symptoms the patient came to the emergency room for further evaluation. Other associated symptoms include lack of energy and productive cough. Patient states she always has a productive cough with yellow sputum, she says this is nothing new for her. She is currently improving from a COPD exacerbation, on tapering dose of prednisone. In the ER vital signs showed a pulse of 109, blood pressure 104/67, temperature 99.4, respiratory rate 28. Oxygen saturation was 92% on 2 L nasal cannula. W BC 14.3, creatinine was 1.08, ESR 36, CRP 0.76. Aspiration of the right elbow yielded 18 30 mL of a pale yellow turbid fluid. Fluid was sent for uric acid, cell count, crystal analyze, and a culture. Blood cultures were also drawn 2 sets. On examination the patient had a slightly and swollen right elbow with decreased range of motion. She appeared to be short of breath; however, the patient states she had been moving around a lot today and she does not normally move as much at home. She had mild expiratory wheezing likely from her exertion today. Chest x-ray done showed no acute changes. Orthopedic surgery saw the patient in the emergency room and recommended inpatient hospitalization with IV antibiotics. Patient was admitted for septic bursitis of the right elbow, sepsis. HOSPITAL COURSE: The patient was initially tried with treating the infection with IV vancomycin. Fluid culture from aspiration in the ER later came back positive for staph aureus sensitive to cefazolin. Several days into her hospitalization it was also noted that the patient had a blistering rash on erythematous base on her sacrum and buttocks. The patient was started on initially a acyclovir , and later valacyclovir, to treat HSV vs herpes zoster. On 07/22/2019 the patient needed to have the right elbow lanced to increased swelling, warmth, tenderness. Approximately 20-30 mL of bloody serous/pus was evacuated. On 07/23/2019 the patient was feeling much improved and was given the okay to be discharged home with oral antibiotics (Keflex 500 mg 4 times a day 14 days) diffuse and oral antiviral (Lucie Kluger 1000 mg by mouth every 8 hours 4 days to complete 7 day course] sees. Lesion continues Tylenol when necessary for pain. She is advised to follow-up with her primary care provider in 10 days after discharge. She is unable to be seen by her primary care provider the patient can call the infectious disease office as outpatient and try to get into see Dr. Bethea, infectious disease. At the time of discharge the patient denied any nausea, vomiting, fevers, chills, increased pain. REVIEW OF SYSTEMS: CONSTITUTIONAL: Denies unexplained weight gain or weight loss, loss of appetite, fever, night sweats EYES: Denies eye drainage, eye pain, visual changes, dry/irritated eye EARS, NOSE, MOUTH, THROAT: Denies difficulty hearing, ringing in ears, mouth sores, loose teeth, sore throat, facial numbness or pain NECK: Denies swollen glands CARDIOVASCULAR: Denies irregular heartbeat, racing heart, chest pains, pain in legs with walking RESPIRATORY: Denies night sweats, sputum production, coughing up blood GASTROINTESTINAL: Denies abdominal pain, constipation, bloody stool, diarrhea, heartburn, nausea, vomiting GENITOURINARY: Denies painful urination, bloody urine, frequent urination, urgency, leaking urine, impotence MUSCULOSKELETAL: Denies muscle pain, leg swelling INTEGUMENTARY: Denies rash, itching, change in existing skin lesion, hair loss or increase, breast changes. NEUROLOGICAL: Denies headaches, dizziness, difficulty walking, numbness or tingling PSYCHIATRIC: Denies depression, anxiety, recurrent bad thoughts, mood swings, hallucinations PAST MEDICAL HISTORY: 1. Non-small cell lung cancer, primary right middle lung. Status post 5 treatments radiation 2. COPD on 2 L nasal cannula 3. Chronic respiratory failure, oxygen dependent 4. Obstructive sleep apnea on 4 L nasal cannula at night 5. Diabetes mellitus type 2 6. CAD status post stents 2008 7. History of bladder cancer 8. Tobacco abuse history 9. Physical deconditioning 10. ?History of MRSA PAST SURGICAL HISTORY: 1. S/p stent placement 2008 2. Partial hysterectomy 3. Cholecystectomy 4. Carpal tunnel surgery 5. left foot surgery 6. bladder suspension 7. right shoulder tear repair 8. Hip replacement, bilaterally 9. Bladder mass removal 10. TURP FAMILY HISTORY: Mother: Breast cancer, at 63 years old Father: CAD, in his 90s Sr.: CAD, alive Sr. #2: Lung cancer, at unknown age SOCIAL HISTORY: Prior smoker for 60+ years, 1-2 packs per day since the age of 13, denies alcohol use. Denies illicit drug use. [place] in the local area. She follows with Dr. Sosa, oncology. CardiologistDr. Dow, primary care provider is Nerissa Senior. ALLERGIES: Please see below. HOME MEDICATIONS: Please see below. PHYSICAL EXAMINATION: CONSTITUTIONAL: No acute distress, resting , AAO x 3 EYES: PERRLA, EOM intact HENT, MOUTH: Normocephalic, atraumatic, moist mucous membranes, NECK: increased neck diameter, SUPPLE, no JVD, no lymphadenopathy, no carotid bruit CV: Regular rate and rhythm, S1S2 normal, no murmurs/rubs/gallops RESPIRATORY: mild exp wheezing, no rales/rhonchi GI: obese abdomen, BS positive in 4 quadrants, soft, nontender, nondistended, no rebound or guarding, no organomegaly : Deferred MUSCULOSKELETAL: Soft, slightly warm right elbow with improved tenderness on palpation. Area that was lanced is not draining. Improved ROM today . No cyanosis, clubbing, swelling, joint deformity. +2 pitting edema in bilateral lower ext INTEGUMENTARY: blistering rash with erythematous base on sacral/buttocks area bilaterally, in various stages of healing- overall improving . Nontender. NEUROLOGIC: Cranial Nerves II-XII are intact, no focal deficits PSYCHIATRIC: Mood and affect are normal LABORATORY DATA: Please see below IMAGING: Right elbow XR: Posterior swelling consistent with the given history of bursitis. CXR: Chronic-appearing changes. No focal consolidation or effusion. ASSESSMENT: 69-year-old female admitted under inpatient status for septic bursitis of the right elbow, herpes zoster. PLAN: 1. Septic bursitis of the right elbow. S/p lancing of elbow, improved pain. WBC 10.8, afebrile. Patient is discharged home today with 14 days keflex 500 mg PO QID, probiotic. F/u with PCP or Dr. Bethea's office in 10 days after discharge. Tylenol PRN. 2. Herpes zoster vs. HSV, sacral/buttocks. Improving. C/w Valtrex 1 gram by mouth three times a day x 4 days (completes 7 day course). 3. Mild COPD exacerbation. On home amount of O2. Completing steroid taper. Continue duonebs QID, home dose of prednisone, home inhalers. 4. Obstructive sleep apnea. CPAP nightly, 4 L. 5. Diabetes mellitus II. BS better controlled on detemir QAM. C/w home regimen, consistent carb diet. 6. GERD. PPI 7. Small non-small cell lung cancer, primary right middle lobe of the lung. Status post 5 treatments of radiation. Patient follows with oncology. 8. History of bladder cancer. Patient has been in remission for many years. 9. CAD status post stent. Denies chest pain, increased SOB. Continue with all home cardiac medications. DISPOSITION: Discharging home in improved condition. She is advised to call after the weekend to schedule 10 day post-discharge follow up with PCP or, if cannot get in to see them, Dr. Bethea's office. She does not require any special needs. TIME SPENT ON DISCHARGE: Greater than 30 minutes. Vital Signs/I&Os Vital Signs Date Time Temp Pulse Resp B/P (MAP) Pulse Ox O2 Delivery O2 Flow Rate FiO2 07/23/19 10:00 98.5 77 19 128/70 (89) 95 Nasal Cannula 4.0 I&O- Last 24 Hours up to 6 AM 07/23/19 06:00 Intake Total 1870 ml Output Total 1825 ml Balance 45 ml Laboratory Data Labs 24H Laboratory Tests 2 07/22/19 16:36: Bedside Glucose (Misc Panel) 350H 3/27/20 20:08: Bedside Glucose (Misc Panel) 332H 07/23/19 05:48: Immature Granulocyte % (Auto) 2.9, Neutrophils (%) (Auto) 79.5H, Lymphocytes (%) (Auto) 12.3L, Monocytes (%) (Auto) 4.6, Eosinophils (%) (Auto) 0.2, Basophils (%) (Auto) 0.5, Neutrophils # (Auto) 8.6H, Lymphocytes # (Auto) 1.3L, Monocytes # (Auto) 0.5, Eosinophils # (Auto) 0.0, Basophils # (Auto) 0.1, Nucleated Red Blood Cells % (auto) 0.0, Anion Gap 4L, Glomerular Filtration Rate > 60.0, Calcium Level 9.4, Total Bilirubin 0.4, Aspartate Amino Transf (AST/SGOT) 10, Alanine Aminotransferase (ALT/SGPT) 21, Alkaline Phosphatase 60, Total Protein 6.0L, Albumin 2.6L, Albumin/Globulin Ratio 0.76L 07/23/19 11:30: Bedside Glucose (Misc Panel) 270H CBC/BMP Laboratory Tests 07/23/19 05:48 FSBS Laboratory Tests Test 07/22/19 16:36 07/22/19 20:08 07/23/19 11:30 Range/Units Bedside Glucose (Misc Panel) 350 332 270 83-110 MG/DL Microbiology Microbiology 07/21/19 Herpes Simplex Virus I (PCR), Received Pending 07/21/19 Herpes Simplex Virus II (PCR), Received Pending 07/21/19 Gram Stain - Final, Resulted 07/21/19 Wound Culture, Resulted Pending 07/19/19 Gram Stain - Final, Complete 07/19/19 Body Fluid Culture - Final, Complete Staphylococcus Aureus 07/19/19 Blood Culture - Preliminary, Resulted No Growth after 72 hours. All specime... 07/19/19 Blood Culture - Preliminary, Resulted No Growth after 72 hours. All specime... Discharge Medications Scheduled Aspirin (Aspirin EC) 81 Mg Tab, 81 MG PO DAILY, (Reported) Calcium Carbonate ([place]ysco-500) 500 Mg Tablet, 500 MG PO BID, (Reported) Carvedilol (Carvedilol) 3.125 Mg Tablet, 3.125 MG PO BID, (Reported) Cephalexin (Keflex) 500 Mg Capsule, 500 MG PO QID Cetirizine HCl (Cetirizine HCl) 10 Mg Tablet, 10 MG PO QHS, (Reported) Cholecalciferol (Vitamin D3) (Vitamin D3) 1,000 Unit Tablet, 2,000 UNITS PO DAILY, (Reported) Esomeprazole Magnesium (Esomeprazole Magnesium) 40 Mg Capsule.dr, 40 MG PO BID, (Reported) Fluticasone Propion/Salmeterol (Advair Hfa 115-21 Mcg Inhaler) 1 Aer Aer, 2 PUFF INH BID, (Reported) Fluticasone Propionate (Flonase Allergy Relief) 50 Mcg/Act Spr, 2 SPRAYS NARES DAILY, (Reported) Furosemide (Furosemide) 40 Mg Tablet, 40 MG PO DAILY, (Reported) Gabapentin (Gabapentin) 300 Mg Cap, 600 MG PO QHS, (Reported) Ipratropium/Albuterol Sulfate (Iprat-Albut 0.5-3(2.5) mg/3 ml) 1 Winsome Winsome, 1 VIAL INH QID, (Reported) Lactobacillus Acidophilus (Probiotic Acidophilus) 1.5 Mg Capsule, 1 CAP PO BID Metformin HCl (Metformin HCl) 1,000 Mg Tab, 1,000 MG PO BID, (Reported) Potassium Chloride (Potassium Chloride) 20 Meq Tab.er.prt, 20 MEQ PO BID, (Re ported) Prednisone (Prednisone) 10 Mg Tablet, 10 MG PO DAILY, (Reported) RESUME AFTER 40MG DAILY FOR 10 DAYS Simvastatin (Zocor) 40 Mg Tab, 40 MG PO QHS, (Reported) Sitagliptin Phosphate (Januvia) 100 Mg Tablet, 100 MG PO DAILY, (Reported) Spironolactone (Spironolactone) 25 Mg Tab, 25 MG PO BID, (Reported) Sucralfate (Sucralfate) 1 Gm Tab, 1 GM PO ACHS, (Reported) Tiotropium [place] (Spiriva) 18 Mcg Cap, 18 MCG INH DAILY, (Reported) Valacyclovir HCl (Valacyclovir) 500 Mg Tablet, 1,000 MG PO Q8H Scheduled PRN Albuterol Sulfate (Proair Hfa) 108 Mcg/Act Aer, 2 PUFFS INH QID PRN for SHORTNESS OF BREATH, (Reported) Tramadol HCl (Tramadol HCl) 50 Mg Tab, 50 MG PO TID PRN for PAIN, (Reported) Allergies Coded Allergies: Penicillins (Verified Allergy, Intermediate, Hives, 09/06/18) Venus Gusman MD Jul 23, 2019 14:02
[2019-07-23] MEDS ORDERED: VALA1TAB5 PO (16:13)
== END 2019-07-23 13:52 | disposition home or self-care (01) | DRG 854 ==
LOC: M ED 16:35 → EEVIPCON 18:46 → M ED INP 18:46 → ENRESERVDT 19:30 → ENRESERVTM 19:30 → M MSPAV 20:08
PROVIDERS: ADMIT Internal Medicine; ATTEND Internal Medicine
PROC: 0M930ZZ Drainage of Right Elbow Bursa and Ligament, Open Approach (ICD-10-PCS; principal; 2019-07-22)
DX: A41.9 Sepsis, unspecified organism (principal); M00.9 Pyogenic arthritis, unspecified; J44.1 Chronic obstructive pulmonary disease with (acute) exacerbation; J96.10 Chronic respiratory failure, unspecified whether with hypoxia or hypercapnia; M70.21 Olecranon bursitis, right elbow; G47.33 Obstructive sleep apnea (adult) (pediatric); E11.40 Type 2 diabetes mellitus with diabetic neuropathy, unspecified; I25.10 Atherosclerotic heart disease of native coronary artery without angina pectoris; Z95.2 Presence of prosthetic heart valve; Z85.51 Personal history of malignant neoplasm of bladder; Z85.118 Personal history of other malignant neoplasm of bronchus and lung; Z99.81 Dependence on supplemental oxygen; Z87.891 Personal history of nicotine dependence; K21.9 Gastro-esophageal reflux disease without esophagitis; B02.9 Zoster without complications; Z79.899 Other long term (current) drug therapy; Z79.52 Long term (current) use of systemic steroids; Z88.0 Allergy status to penicillin; Z96.641 Presence of right artificial hip joint; Z96.642 Presence of left artificial hip joint; Z79.82 Long term (current) use of aspirin; B95.61 Methicillin susceptible Staphylococcus aureus infection as the cause of diseases classified elsewhere

== ENCOUNTER → 2019-09-05 | Outpatient (REF) | payer MEDICARE, MEDICAID ==
[~2019-09-05] MED LIST changes: +ALL10TAB29 PO; +CLINDAMYCIN; +ESOM1CAP5 PO; +KEFL500C17 PO; -LISI-1046 PO; +LISI2.5T2 PO; +PRED20TA PO; +PROB1CAP10 PO; +VALA1TAB5 PO; +VALA500T5 PO; +VITAD1000T PO
== END ==
LOC: M SMT 17:34
PROVIDERS: ATTEND Urology
DX: Z85.51 Personal history of malignant neoplasm of bladder (principal)

== ENCOUNTER 2020-03-01 19:23 | Inpatient (IN) | payer MEDICARE, MEDICAID ==
[~2020-03-01] VITALS: Ht 149.9 cm; Wt 94.0 kg
[~2020-03-01 19:23] MED LIST changes: -ALL10TAB29 PO; +AMLO1TAB24 PO; -AMLO5TAB6 PO; +CETI-24 PO; +D31000TA2 PO; +FLON1SPR; -FLON1SPR NARES; -VITAD1000T PO
[2020-03-01 21:49] LABS: VENOUS BASE EXCESS 11.9 (-2.0-2.0); VENOUS HCO3 38.7 MEQ/L (23.0-27.0); VENOUS O2 SATURATION 75.5 % (60.0-80.0); VENOUS PARTIAL PRESSURE CO2 59.3 mmHg (38.0-50.0); VENOUS PARTIAL PRESSURE O2 41.8 mmHg (30.0-50.0); VENOUS PH 7.433 UNITS (7.330-7.430); VENOUS TOTAL CO2 40.6 MEQ/L (24.0-28.0)
[2020-03-01 21:54] LABS: BASO # 0.1 10^3/uL (0.0-0.2); BASO % 0.4 % (0.0-1.0); EOS % 0.1 % (0.0-3.0); HEMATOCRIT 43.6 % (36.0-47.0); HEMOGLOBIN 13.3 g/dl (12.0-15.5); LYMPH % 8.3 % (24.0-44.0); MEAN CORPUSCULAR HEMOGLOBIN 24.2 pg (27.0-33.0); MEAN CORPUSCULAR HGB CONC 30.5 g/dl (32.0-36.5); MEAN CORPUSCULAR VOLUME 79.3 fl (80.0-96.0); MONO # 0.7 10^3/uL (0.0-0.8); MONO % 5.4 % (0.0-5.0); NEUTROPHILS # 10.2 10^3/uL (1.5-8.5); NEUTROPHILS % 84.5 % (36.0-66.0); PLATELET COUNT, AUTOMATED 321 10^3/uL (150-450)
[2020-03-01 22:04] LABS: INR 1.07; PROTHROMBIN TIME 14.1 SECONDS (12.5-14.3)
[2020-03-01 22:05] LABS: PARTIAL THROMBOPLASTIN TIME 27.1 SECONDS (24.2-38.5)
--- NOTE | 2020-03-01 22:13 | REPVR ---
PROCEDURE INFORMATION: Exam: CT Head without Contrast Exam date and time: 03/01/20 (9:04pm) Age: 70 years old Clinical indication: Syncope and collapse TECHNIQUE: Imaging protocol: Computed tomography of the head without contrast. Radiation optimization: All CT scans at this facility use at least one of these dose optimization techniques: automated exposure control; mA and/or kV adjustment per patient size (includes targeted exams where dose is matched to clinical indication); or iterative reconstruction. COMPARISON: No relevant prior studies available FINDINGS: Brain: No acute hemorrhage. No cerebral edema. Age-related atrophic changes are noted. Periventricular and subcortical areas of low attenuation, compatible with chronic small vessel microischemic changes. Cerebral ventricles: No ventriculomegaly. Bones/joints: Unremarkable. No acute fracture. Paranasal sinuses: Left sphenoid sinusitis changes. No air-fluid levels. Mastoid air cells: Opacified left mastoid air cells. Soft tissues: Unremarkable. IMPRESSION: No acute intracranial pathology is appreciated. Chronic atrophic and microischemic changes. Electronically signed by: Nikki Evans On 03/01/2020 22:13:16 PM
[2020-03-01 22:29] LABS: BLOOD UREA NITROGEN 15 MG/DL (7-18); CALCIUM LEVEL 8.5 MG/DL (8.8-10.2); CARBON DIOXIDE LEVEL 38 MEQ/L (21-32); CHLORIDE LEVEL 84 MEQ/L (98-107); CK-MB VALUE MASS 1.7 NG/ML (<3.6); CPK CREATINE PHOSPHOKINASE 49 U/L (26-192); CREATININE FOR GFR 0.85 MG/DL (0.55-1.30); GLOMERULAR FILTRATION RATE > 60.0 (>39); GLUCOSE, FASTING 129 MG/DL (70-100); MAGNESIUM LEVEL 0.9 MG/DL (1.8-2.4); MB/CK RELATIVE INDEX 3.47 (< OR =4); NT-PRO BNP 550 PG/ML (<125); SODIUM LEVEL 132 MEQ/L (136-145); TROPONIN I < 0.02 NG/ML (< 0.10)
[2020-03-01] MEDS ORDERED: MAG SULF 1GM/100ML (MAG RUN) 1 GM in IV 1 EA IV ONE (23:00)
[2020-03-01] MEDS ORDERED: DIGOXIN INJ 0.5 MG/2 ML AMP (J1160) IV STA (23:29)
[2020-03-01] MEDS ORDERED: NS 1,000 ML IV ONE (23:30)
[2020-03-02] VITALS (8 sets, daily range): BP systolic 100–166; BP diastolic 56–94
[2020-03-02] MEDS ORDERED: IPRA0.00 INH (00:08)
[2020-03-02] MEDS ORDERED: ADVA230A INH (00:08)
[2020-03-02] MEDS ORDERED: TIOT18INH INH (00:08)
[2020-03-02] MEDS ORDERED: DIGOXIN INJ 0.5 MG/2 ML AMP (J1160) IV STA (02:06)
[2020-03-02] MEDS ORDERED: HEPARIN SOD (PORCINE) 5000UNITS/ML 1ML VIAL/SYRINGE IV PRN (02:15)
[2020-03-02] MEDS ORDERED: HEPARIN DRIP 25,000 UNITS in IV 1 EA IV SCH ×2 (02:15→03:02)
[2020-03-02] MEDS ORDERED: HEPARIN SOD (PORCINE) 5000UNITS/ML 1ML VIAL/SYRINGE IV ONE (02:15)
--- NOTE | 2020-03-02 02:53 | HPEPDOC ---
[facility] Medical History & Physical Date of Admission Mar 02, 2020 Date of Service: Mar 02, 2020 Primary Care Physician: VIRGILIO SOTELO D.O. Attending Physician: OCTAVIANO BASHIR MD History and Physical CHIEF COMPLAINT: Blank staring episode, increased difficulty breathing HISTORY OF PRESENT ILLNESS: Patient is a 70-year-old female who presented to the emergency department on the afternoon of 03/01/2020 after her son noticed that she had a blank staring episode. The patient states that her son said she was staring off into space and began shaking. Patient did not lose continence of bowel or bladder during this episode. Patient was sitting at the kitchen table and did not fall out of her chair. Patient says that she's had a few of these episodes in the past and that her son finally convinced her to come to the emergency department today. Patient states that she's had some more increased difficulty breathing over the past few weeks. Patient says that she is also had a cough that she says she has an occasion. She says this cough is nonproductive. When the patient arrived in the emergency department, she was found to have an elevated heart rate. An ECG was performed that showed atrial fibrillation with a rapid ventricular response. This appears to be a new diagnosis. Patient was also hypotensive at times especially when her heart rate was quite elevated into the 150s. Because of this, hospitalist was consult at for admission to the hospital. Patient was given digoxin in the emergency department. PAST MEDICAL HISTORY: 1. COPD. 2. Type 2 diabetes mellitus. 3. Osteoarthritis. 4. Hypertension 5. Hyperlipidemia 6. Sleep apnea 7. Bilateral rotator cuff tears 8. GERD 9. Bladder cancer 10. Lung cancer PAST SURGICAL HISTORY: 1. Partial hysterectomy. 2. Cholecystectomy in 1968. 3. Carpal tunnel release 2. 4. Foot surgery 5. Bladder suspension 6. Right rotator cuff repair 7. Cardiac stent placement 8. Hip replacement bilaterally 9. TURBT 10. Multiple cystoscopies SOCIAL HISTORY: Patient is a former smoker who denies drinking alcohol or using IV drugs. FAMILY HISTORY: Patient's father had 3 strokes and had diabetes. Patient's mother of breast cancer. ALLERGIES: Please see below. REVIEW OF SYSTEMS: General: Patient denies fevers HEENT: Patient denies headaches Cardiovascular: Patient denies chest pain Respiratory: Patient reports increased shortness of breath and a cough as described above in HPI GI: Patient denies abdominal pain, nausea, vomiting, diarrhea : Patient denies increased frequency or pain with urination Extremities: Patient denies swelling or pain in extremities Neurological: Patient denies numbness or tingling in legs Skin: Patient denies any new rashes or lesions. Hematologic: Patient denies any easy bruising. Lymphatic: Patient denies any lumps lumps or bumps in neck, axilla, or groin HOME MEDICATIONS: Please see below. PHYSICAL EXAMINATION: VITAL SIGNS: See below General: Alert and oriented female patient who is laying on her side in the emergency department when I walked into the room. Patient not appear to be in any acute distress. Nasal cannula oxygen was in place. HEENT: Normocephalic, atraumatic, moist mucous membranes. Neck: No lymphadenopathy or thyromegaly. JVD was difficult to assess due to body habitus Cardiac: Regular rate and rhythm, no murmurs, normal S1, normal S2 Pulm: Diminished breath sounds with bilateral basilar crackles present. Abd: Nondistended, nontender to palpation, normal bowel sounds Ext: 1-2+ pitting edema in the bilateral lower extremities with scaling of the skin over top of it. Patient had 2/4 dorsalis pedis pulse in her right foot and 1/4 dorsalis pedis pulse in the left foot. Skin: No evidence of rash on the skin other than the scaling over the skin of the shins bilaterally LABORATORY DATA: See below. IMAGING: A CT head without contrast performed on 03/01/2020 and was reported to show no acute intracranial pathology appreciated. Chronic atrophic and micro- ischemic changes. A chest x-ray was performed on 03/01/2020 and official read from radiology is pending at the time of this dictation however, on personal review, I do not see any acute infiltrates but does appear to show increased cephalization. MICROBIOLOGY: Please see below. ASSESSMENT: Patient is a 70-year-old female who presented to the emergency department with a staring off into space spell was found to be in atrial fibrillation with a rapid ventricular response and be hypotensive. PLAN: 1. Atrial fibrillation with a rapid ventricular response. Because of the patient's hypotension, digoxin was chosen to try to slow down the patient's heart rate. Patient does not have a documented history of atrial fibrillations this is a new diagnosis. Patient was started on heparin drip. Based on the patient's story, the patient may have been in atrial fibrillation for some time as I believe that the patient's hypotension is due to the patient having a rapid ventricular rate because when her rate does slow down the emergency department, it does appear that her blood pressure does come up and when her rate is in the 150s, that is why we are getting the lowest blood pressure readings. We will monitor the patient. Echocardiogram has been ordered. Cardiology consultation can be considered by morning provider. Patient will be placed on telemetry. Patient has a [id number] of 5 and will need oral anticoagulation upon discharge. She is on a heparin drip as we have no echocardiogram to prove this is nonvalvular atrial fibrillation. 2. Hypotension. Patient's hypotension is most likely secondary to the patient's rapid ventricular response. As we slow the patient's heart rate down, we will continue to monitor the blood pressure. If the blood pressure does not come up with the heart rate slowing down, IV fluids will be given. 3. Shortness of breath. This may be secondary to the atrial fibrillation with rapid ventricular response. Patient does have a history of congestive heart fa ilure so with the atrial fibrillation, she appears to be an exacerbation of this. Lasix has been held due to the patient's hypotension. As we work to lower the patient's heart rate, if her blood pressure comes back into the normal range, we will begin diuresing the patient. We will continue to workup whether the CHF exacerbation is the cause of her atrial fibrillation with rapid ventricular response or if the rapid heart rate has caused the exacerbation. At this time we will continue working on lowering the patient's heart rate. 4. Acute exacerbation of congestive heart failure. At this time, there is no echocardiogram in the record so we are unsure if this is heart failure with reduced or preserved ejection fraction. We will continue to monitor the patient's heart rate and fluid status. Again, if the patient's blood pressure comes back into the normal range, we'll begin diuresing her. 5. Episode of altered mental status, resolved. Based on the history I received the patient, she appeared to have a possible syncopal episode. This may be most likely due to the patient's hypotension that we've seen in the emergency department. Because this is seemed to happen a few times over the past few days, patient may have been atrial fibrillation with a rapid ventricular response for some time prior to arriving at the emergency department. Head CT was ordered and was negative. Neurological consult can be considered due to possible seizure like activity and possible post ictal state. 6. History of hypertension. Because the patient is hypotensive at this time, we will put hold parameters on her blood pressure medication. 7. Hyperlipidemia. We'll continue the patient's current medications. 8. Coronary artery disease. We'll continue with the patient's home medication was. 9. Hypomagnesemia. Patient's initial magnesium level in the emergency department was 0.9. Patient was given 1 g in the emergency department, I will give an additional 5 g over the next 12 hours IV. 10. DVT prophylaxis: Patient is currently on a heparin drip. 11. CODE STATUS: Patient states that she has filled out a DNR/DNI order but did not bring it with her to the hospital. In talking with the patient, patient would like to be a DO NOT RESUSCITATE/DO NOT INTUBATE. I went through with this entails the patient and she understands that if her heart were to stop beating, we would allow natural . Patient is agreeable to this so DNR/DNI order has been placed. Vital Signs Vital Signs Date Time Temp Pulse Resp B/P (MAP) Pulse Ox O2 Delivery O2 Flow Rate FiO2 03/02/20 01:30 137 17 122/58 (79) 96 Nasal Cannula 2.0 03/02/20 00:08 94 03/01/20 19:25 96.5 Laboratory Data Labs 24H Laboratory Tests 2 03/01/20 21:43: Immature Granulocyte % (Auto) 1.3, Neutrophils (%) (Auto) 84.5H, Lymphocytes (%) (Auto) 8.3L, Monocytes (%) (Auto) 5.4H, Eosinophils (%) (Auto) 0.1, Basophils (% ) (Auto) 0.4, Neutrophils # (Auto) 10.2H, Lymphocytes # (Auto) 1.0L, Monocytes # (Auto) 0.7, Eosinophils # (Auto) 0.0, Basophils # (Auto) 0.1, Nucleated Red Blood Cells % (auto) 0.0, Prothrombin Time 14.1H, Prothromb Time International Ratio 1.07, Activated Partial Thromboplast Time 27.1, Blood Gas Bicarbonate Standard 35.0, Venous Blood pH 7.433H, Venous Blood Partial Pressure CO2 59.3H, Venous Blood Partial Pressure O2 41.8, Venous Blood Total Carbon Dioxide 40.6H, Venous Blood HCO3 38.7H, Venous Blood Oxygen Saturation 75.5, Venous Blood Base Excess 11.9H, Anion Gap 10, Glomerular Filtration Rate > 60.0, Calcium Level 8.5L, Magnesium Level 0.9*L, Total Creatine Kinase 49, Creatine Kinase MB 1.7, Creatine Kinase MB Relative Index 3.47, Troponin I < 0.02, ZV-[id number]-[id number]-Type Natriuretic Peptide 550H, Thyroid Stimulating Hormone (TSH) 1.860, Free Thyroxine 1.70H 03/01/20 22:14: Bedside Glucose (Misc Panel) 127H 03/01/20 23:45: Lactic Acid Level 2.7*H CBC/BMP Laboratory Tests 03/01/20 21:43 Microbiology Microbiology 03/01/20 Blood Culture, Received Pending Home Medications Scheduled Aspirin (Aspirin EC) 81 Mg Tab, 81 MG PO DAILY Carvedilol (Carvedilol) 3.125 Mg Tablet, 3.125 MG PO BID Cetirizine HCl (Cetirizine HCl) 10 Mg Tablet, 10 MG PO QHS Cholecalciferol (Vitamin D3) (Vitamin D3) 1,000 Unit Tablet, 2,000 UNITS PO DAILY Esomeprazole Magnesium (Esomeprazole Magnesium) 40 Mg Capsule.dr, 40 MG PO BID Fluticasone Propion/Salmeterol (Advair Hfa 230-21 Mcg Inhaler) 12 Gm Hfa.aer.ad, 2 PUFF INH BID Fluticasone Propionate (Flonase Allergy Relief) 50 Mcg/Act Spr, 2 SPRAYS NA DAILY Furosemide (Furosemide) 40 Mg Tablet, 40 MG PO BID Gabapentin (Gabapentin) 300 Mg Cap, 600 MG PO QHS Ipratropium/Albuterol Sulfate (Iprat-Albut 0.5-3(2.5) mg/3 ml) 3 Ml Ampul.neb, 3 ML INH QID Metformin HCl (Metformin HCl) 1,000 Mg Tab, 1,000 MG PO BID Potassium Chloride (Potassium Chloride) 20 Meq Tab.er.prt, 20 MEQ PO BID Prednisone (Prednisone) 10 Mg Tablet, 10 MG PO DAILY Simvastatin (Zocor) 40 Mg Tab, 40 MG PO QHS Sitagliptin Phosphate (Januvia) 100 Mg Tablet, 100 MG PO DAILY Spironolactone (Spironolactone) 25 Mg Tab, 25 MG PO BID Sucralfate (Sucralfate) 1 Gm Tab, 1 GM PO ACHS Tiotropium Hedrick Monohydrate (Spiriva) 18 Mcg Cap.w.dev, 1 INHALATION INH DAILY Scheduled PRN Albuterol Sulfate (Proair Hfa) 108 Mcg/Act Aer, 2 PUFFS INH QID PRN for SHORTNESS OF BREATH Tramadol HCl (Tramadol HCl) 50 Mg Tab, 50 MG PO QHS PRN for PAIN Allergies Coded Allergies: Penicillins (Verified Allergy, Intermediate, Hives, 09/06/18) A-FIB/CHADSVASC A-FIB History Current/History of A-Fib/PAF?: Yes Current PO Anticoag Therapy: No Age/Risk Factor Scoring CHADSVASC: CHADSVASC Response (Comments) Value Age Risk Factor Age 65-74 years old 1 Gender Risk Factor Female 1 Hx of CHF Yes 1 Hx of HTN Yes 1 Hx of Stroke/TIA/or VTE No 0 Hx of Diabetes Yes 1 Hx of Vascular Disease No 0 Total 5 Treatment Treatment ordered: Heparin IV bridge Therapy GME ATTESTATION GME ATTESTATION My faculty preceptor for this patient encounter was physically present during the encounter and was fully available. All aspects of the patient interview, examination, medical decision making process, and medical care plan development were reviewed and approved by the faculty preceptor. The faculty preceptor is aware and concurs with the plan as stated in the body of this note and will attest to such by his/her cosignature. GIANNI RECINOS DO Mar 02, 2020 02:53
[2020-03-02] MEDS ORDERED: DEXTROSE 50% 50 ML SYRINGE IV PRN (03:45)
[2020-03-02] MEDS ORDERED: GLUCAGON INJ 1MG VIAL SC PRN (03:45)
[2020-03-02] MEDS ORDERED: GLUCOSE 4GM CHEW TABLET PO PRN (03:45)
[2020-03-02] MEDS: ADVAIR HFA 230/21MCG INHALER INH SCH ×3 (03:48→18:26)
[2020-03-02] MEDS: IPRATROPIUM 0.5MG/ALBUTEROL 2.5MG INH SOL UD 3ML (DUONEB) INH SCH ×3 (03:49→10:01)
[2020-03-02] MEDS: GABAPENTIN 300 MG CAP PO SCH ×2 (03:49→20:09)
[2020-03-02] MEDS: MAG SULF 1GM/100ML (MAG RUN) 1 GM in IV 1 EA IV SCH ×3 (03:52→07:07)
[2020-03-02 04:41] LABS: BASO # 0.1 10^3/uL (0.0-0.2); BASO % 0.4 % (0.0-1.0); EOS # 0.1 10^3/uL (0.0-0.5); EOS % 0.5 % (0.0-3.0); HEMOGLOBIN 12.2 g/dl (12.0-15.5); LYMPH # 1.4 10^3/uL (1.5-5.0); LYMPH % 12.2 % (24.0-44.0); MEAN CORPUSCULAR HEMOGLOBIN 24.1 pg (27.0-33.0); MEAN CORPUSCULAR HGB CONC 30.5 g/dl (32.0-36.5); MEAN CORPUSCULAR VOLUME 78.9 fl (80.0-96.0); MONO # 0.8 10^3/uL (0.0-0.8); MONO % 6.8 % (0.0-5.0); NEUTROPHILS # 8.9 10^3/uL (1.5-8.5); NEUTROPHILS % 78.7 % (36.0-66.0); PLATELET COUNT, AUTOMATED 297 10^3/uL (150-450); RED BLOOD COUNT 5.07 10^6/uL (4.00-5.40); WHITE BLOOD COUNT 11.3 10^3/uL (4.0-10.0)
[2020-03-02] MEDS ORDERED: PREVNAR 13 VACCINE SYRINGE IM SCH (05:15)
[2020-03-02] MEDS ORDERED: FLUBLOK(EGG FREE)(QUAD)INFLUENZA VACC 0.5ML SYRINGE 18YRS & OLDER IM SCH (05:15)
[2020-03-02 05:19] LABS: BLOOD UREA NITROGEN 15 MG/DL (7-18); CALCIUM LEVEL 7.9 MG/DL (8.8-10.2); CARBON DIOXIDE LEVEL 38 MEQ/L (21-32); CHLORIDE LEVEL 85 MEQ/L (98-107); CREATININE FOR GFR 0.71 MG/DL (0.55-1.30); GLOMERULAR FILTRATION RATE > 60.0 (>39); GLUCOSE, FASTING 111 MG/DL (70-100); MAGNESIUM LEVEL 1.6 MG/DL (1.8-2.4); POTASSIUM SERUM 2.3 MEQ/L (3.5-5.1); SODIUM LEVEL 133 MEQ/L (136-145)
[2020-03-02] MEDS ORDERED: FUROSEMIDE 40MG/4ML VIAL (J1940) IV ONE (05:30)
[2020-03-02] MEDS ORDERED: POTASSIUM CHLORIDE 10 MEQ SR TABLET PO ONE ×4 (05:30→15:15)
[2020-03-02] MEDS ORDERED: KCL 10MEQ/100ML SWI (KRUN) 10 MEQ in IV 1 EA IV ONE (06:00)
[2020-03-02 07:38] LABS: BLOOD UREA NITROGEN 13 MG/DL (7-18); CALCIUM LEVEL 8.1 MG/DL (8.8-10.2); CARBON DIOXIDE LEVEL 37 MEQ/L (21-32); CHLORIDE LEVEL 85 MEQ/L (98-107); CREATININE FOR GFR 0.69 MG/DL (0.55-1.30); GLOMERULAR FILTRATION RATE > 60.0 (>39); GLUCOSE, FASTING 134 MG/DL (70-100); MAGNESIUM LEVEL 2.1 MG/DL (1.8-2.4); POTASSIUM SERUM 2.4 MEQ/L (3.5-5.1); SODIUM LEVEL 131 MEQ/L (136-145)
--- NOTE | 2020-03-02 07:55 | REP ---
INDICATION: Syncope/near-syncope. COMPARISON: July 19, 2019.. TECHNIQUE: Sitting AP view, somewhat lordotic projection. FINDINGS: Lungs are symmetrically aerated. Pleural angles are sharp. Cardiomediastinal silhouette is unremarkable. Heart size is near the upper range of normal. There is increased density in the right perihilar region question atelectasis versus infiltrate. No thoracic aorta is calcific. There are degenerative changes in the shoulders. IMPRESSION: Increased density in the right perihilar region question infiltrate versus atelectasis. <Electronically signed by Rafy Barrera > 03/02/20 [id number]
[2020-03-02] MEDS: HumaLOG INSULIN (NovoLOG) PER UNIT SC SCH ×4 (08:16→20:15)
[2020-03-02] MEDS: SUCRALFATE 1 GM TAB PO SCH ×4 (08:18→20:09)
[2020-03-02] MEDS: TIOTROPIUM INHALER/CAPSULE (SPIRIVA) INH SCH (08:30)
[2020-03-02] MEDS ORDERED: predniSONE 10 MG TAB PO SCH (09:00)
[2020-03-02] MEDS ORDERED: POTASSIUM CHLORIDE 10 MEQ SR TABLET PO SCH (09:00)
[2020-03-02] MEDS ORDERED: SITagliptin 50 MG TAB (JANUVIA) PO SCH (09:00)
[2020-03-02] MEDS: VITAMIN D 1,000 INTERNATIONAL UNITS TABLET PO SCH (09:25)
[2020-03-02] MEDS: ASPIRIN 81 MG ENTERIC TAB PO SCH (09:26)
[2020-03-02] MEDS: FLUTICASONE PROP 0.05% NASAL SPRAY 16 GM (FLONASE) SCH (09:27)
[2020-03-02] MEDS: CARVedilol 3.125 MG TAB PO SCH ×2 (09:27→20:09)
[2020-03-02 10:17] LABS: MAGNESIUM LEVEL 2.1 MG/DL (1.8-2.4); POTASSIUM SERUM 2.6 MEQ/L (3.5-5.1)
[2020-03-02] MEDS ORDERED: DIGOXIN INJ 0.5 MG/2 ML AMP (J1160) IV ONE (10:45)
[2020-03-02] MEDS ORDERED: MAG SULF 1GM/100ML (MAG RUN) 1 GM in IV 1 EA IV SCH (11:00)
[2020-03-02 14:50] LABS: BLOOD UREA NITROGEN 12 MG/DL (7-18); CALCIUM LEVEL 8.3 MG/DL (8.8-10.2); CARBON DIOXIDE LEVEL 38 MEQ/L (21-32); CHLORIDE LEVEL 88 MEQ/L (98-107); CREATININE FOR GFR 0.82 MG/DL (0.55-1.30); GLOMERULAR FILTRATION RATE > 60.0 (>39); GLUCOSE, FASTING 185 MG/DL (70-100); POTASSIUM SERUM 3.3 MEQ/L (3.5-5.1); SODIUM LEVEL 133 MEQ/L (136-145)
--- NOTE | 2020-03-02 18:16 | REP ---
INDICATION: BLOODIN THE URINE. COMPARISON: CT abdomen pelvis 10/12/2018 TECHNIQUE: Renal ultrasound without Doppler FINDINGS: Sonographic evaluation shows the left kidney 12.6 x 6.2 x 6.3 cm. Cortical thickness and echogenicity are preserved. There is some mild hydronephrosis without hydroureter. There are echogenic vessels in the hilum and some sinus lipomatosis evident. A 16.5 mm calcification with shadowing in the lower pole of the left kidney representing a stone. This could be from 2 adjacent smaller stones seen on the CT last year. Body habitus considerations limit the examination. Small cortical cysts seen on CT are poorly depicted on this examination. The right kidney is 11.3 x 6.3 x 6.3 cm. It has normal cortical echogenicity and thickness. There are some echogenic vessels evident and sinus lipomatosis seen. No hydronephrosis or hydroureter. No echogenic foci with shadowing identified. Body habitus considerations limit evaluation and the small cortical cysts seen on CT last year are poorly depicted on this study. No perinephric fluid. IMPRESSION: 1. Mild left hydronephrosis without hydroureter. There is linear echogenic focus 16.5 mm in the lower pole left kidney likely related to 2 smaller stones seen on CT last year. No renal mass. Cysts seen in the cortex on CT last year cannot be seen due to body habitus considerations limiting this evaluation. 2. No right hydronephrosis or hydroureter. No atrophy. The cortical thickness and echogenicity of the right kidney are normal. Nothing acute. <Electronically signed by Hank Galvez > 03/02/20 [id number]
--- NOTE | 2020-03-02 19:00 | IPNPDOC ---
Text Note Date of Service The patient was seen on 03/02/20. NOTE Subjective: Mrs. Iglesias is a 70 year old female patient with past medical history of COPD on duonebs at home and no home oxygen, HTN well controlled with mediation, type 2 DM on oral medication at home, sleep apnea on CPAP at home, history of CHF no prior echo available on Lasix, Coreg and spironolactone at home, bladder cancer s/p TURBT, lung cancer, was brought to ED due to confusion. She was hypotensive in ED and her HR was in 150s. ECG showed atrial fibrillation with rapid ventricular rate. She reports to have cough and SOB. Today patient was seen at bed side and patient reports feeling better then yesterday, improvement in shortness of breath. Denies having any chest pain or palpitations, abdominal pain, nausea, vomiting. Patient had hematuria, she was on heparin drip for her A. fib which was discontinued later. She denies having any complaints. General: Patient is awake, alert, oriented times three, laying in bed towards the right side and she has an wound on her sacral region and reports to have back pain as well, no apparent distress. Cardiovascular: Distant heart sounds S1, S2 heard, irregular rhythm, no murmur, rub, or gallop. Respiratory: Diminished breath sounds bilaterally, mild crackles heard in her lung bases, no wheezes, rubs or rhonchi heard. Abdomen: Soft, bowel sounds positive, no bruits. No tenderness on palpation Extremities: No clubbing or cyanosis. 2+ pitting edema in the right leg extending up to the knee and 1+ pitting edema in the left leg noted. Central nervous system (TRANSPORTATION WORKER): Awake, alert and fully oriented. Skin: No rashes, lesions, ulcerations, subcutaneous nodules or induration. Imaging: A CT head without contrast performed on 03/01/2020 and was reported to show no acute intracranial pathology appreciated. Chronic atrophic and micro- ischemic changes. A chest x-ray was performed on 03/01/2020 reported as increased density in the right perihilar region question infiltrate versus atelectasis. Assessment: 70-year-old female patient with multiple comorbidities presented to the emergency department with short period of confusion , no loss of consciousness, no fall. In the ED was found to have A. fib with rapid ventricular response and hypotensive Plan: 1) A. fib with RVR: - This a new diagnosis for her not sure when her A. fib started, and she has a history of CHF and is on multiple medications like Lasix, Coreg, Spironolactone and lead to hypotension in which in turn is causing her A. fib or it can be her A. fib causing hypotension. Will hold off on Lasix, spironolactone for now. - It can be her polypharmacy causing electrolyte abnormalities which can be the cause of atrial fibrillation with RVR. - Patient got a total of 3 doses of digoxin of 0.25 mg up until now.If Patient is tachycardic overnight give her another dose of digoxin based on her weight. We will get digoxin levels tomorrow. - On presentation her magnesium level was 0.9 and she got 4 mag runs total and her infusion level was back to 2.1 normal. - And had low potassium levels of 2.3 which gradually improved with potassium replacement orally. Now her potassium level is 3.3. She was given 20 mEq of potassium after that. - Patient has a TSH level of 1.8, free T4 level of 1.7 mildly elevated. As a TSH levels are normal and T4 mild elevation is a less likely cause of hyperthyroidism leading to A. fib - Patient has a history of CHF, but no echo prior advisable and records. Echo is already ordered and done but not reported yet. We will rule out any valvular defects, structural defects leading to this episode. - Patient has mild pedal edema and mild crackles but her imaging chest x-ray showed no fluid, questionable infiltrate versus atelectasis. Less likely acute exacerbation of CHF leading to this episode of atrial fibrillation with RVR. We will get an echo to see her ejection fraction and heart chambers. - If patient stabilizes overnight we will get orthostatic items to rule out orthostatic hypotension. 2) Hematuria: - Patient was placed on heparin drip because of early A. fib with RVR and patient developed hematuria(Gross blood in the urine) and her heparin drip was held. - If patient doesn't have hematuria anymore we will try to start her on Eliquis. She had history of bladder cancer s/p TURBT not sure of her timeline when she got this done. A might have led to her hematuria. - We'll get a renal ultrasound to rule out any other renal pathology. 3) Shortness of breath: - Most likely her shortness of breath is due to atrial fibrillation with rapid ventricular hermila, history of CHF, history of COPD. - Less likely acute exacerbation of COPD or CHF. - Will hold off her albuterol for now as it can lead to tachycardia. We will continue tiotropium and prednisone 40 mg. - Echo was ordered and was done but not reported yet. Based on that will see whether it is systolic or diastolic heart failure. 4) Acute exacerbation of congestive heart failure: At this point there is no echocardiogram from prior records. Will follow her echocardiogram to see whether her heart failure is reduced or preserved ejection fraction. Continue to monitor her heart rate and fluid status. 5) History of hypertension: - Patient is hypotensive on presentation and will hold her blood pressure medications,. 6) Dyslipidemia: - Will continue her home medication 7) Diabetes mellitus type 2: - Patient is on insulin sliding scale - Patient is on consistent carb diet 8) Electrolyte abnormalities(hypo-magnesium, hypokalemia): - Right now patient's magnesium was normal, potassium is 3.3 and she got 20 mEq of potassium after that. - Monitor her electrolytes and replace as needed. 9) DVT prophylaxis: - Teds and sequentials for now - Will hold off on her heparin drip as he is having hematuria. VS,Fishbone, I+O VS, Fishbone, I+O Laboratory Tests 03/01/20 21:43 03/02/20 04:27 03/02/20 06:42 03/02/20 09:25 03/02/20 13:52 Vital Signs Date Time Temp Pulse Resp B/P (MAP) Pulse Ox O2 Delivery O2 Flow Rate FiO2 03/02/20 11:15 117 03/02/20 09:27 114/58 03/02/20 06:00 28 94 Nasal Cannula 2.0 03/02/20 03:38 98.1 03/02/20 00:08 94 I&O- Last 24 Hours up to 6 AM 03/02/20 06:00 Intake Total 200 ml Balance 200 ml GME ATTESTATION GME ATTESTATION My faculty preceptor for this patient encounter was physically present during the encounter and was fully available. All aspects of the patient interview, examination, medical decision making process, and medical care plan development were reviewed and approved by the faculty preceptor. The faculty preceptor is aware and concurs with the plan as stated in the body of this note and will attest to such by his/her cosignature. ATTENDING NOTE Patient was seen and examined by me personally with the residents/students. I agree with the above assessment and plan Rachid Turpin MD Mar 02, 2020 18:59 DAVIAN ODELL MD Mar 05, 2020 11:45
[2020-03-02 19:11] LABS: BLOOD UREA NITROGEN 12 MG/DL (7-18); CARBON DIOXIDE LEVEL 37 MEQ/L (21-32); CHLORIDE LEVEL 89 MEQ/L (98-107); CREATININE FOR GFR 0.79 MG/DL (0.55-1.30); GLOMERULAR FILTRATION RATE > 60.0 (>39); GLUCOSE, FASTING 170 MG/DL (70-100); MAGNESIUM LEVEL 1.7 MG/DL (1.8-2.4); POTASSIUM SERUM 3.6 MEQ/L (3.5-5.1); SODIUM LEVEL 130 MEQ/L (136-145)
[2020-03-02] MEDS: CETIRIZINE (ZyrTEC) 10 MG TAB PO SCH (20:09)
[2020-03-02] MEDS: SIMVASTATIN 40 MG TAB PO SCH (20:09)
[2020-03-03] VITALS: BP 99/54
[2020-03-03 00:37] LABS: BLOOD UREA NITROGEN 10 MG/DL (7-18); CALCIUM LEVEL 8.7 MG/DL (8.8-10.2); CARBON DIOXIDE LEVEL 37 MEQ/L (21-32); CHLORIDE LEVEL 91 MEQ/L (98-107); CREATININE FOR GFR 0.62 MG/DL (0.55-1.30); GLOMERULAR FILTRATION RATE > 60.0 (>39); GLUCOSE, FASTING 164 MG/DL (70-100); MAGNESIUM LEVEL 1.8 MG/DL (1.8-2.4); SODIUM LEVEL 133 MEQ/L (136-145)
[2020-03-03] MEDS ORDERED: POTASSIUM CHLORIDE 10 MEQ SR TABLET PO SCH (01:00)
[2020-03-03 04:00] VITALS: BP 94/51
[2020-03-03 05:34] LABS: BASO % 0.4 % (0.0-1.0); EOS % 0.2 % (0.0-3.0); HEMATOCRIT 39.2 % (36.0-47.0); LYMPH # 1.1 10^3/uL (1.5-5.0); LYMPH % 12.7 % (24.0-44.0); MEAN CORPUSCULAR HEMOGLOBIN 24.9 pg (27.0-33.0); MEAN CORPUSCULAR HGB CONC 30.6 g/dl (32.0-36.5); MEAN CORPUSCULAR VOLUME 81.5 fl (80.0-96.0); MONO # 0.6 10^3/uL (0.0-0.8); NEUTROPHILS # 6.9 10^3/uL (1.5-8.5); NEUTROPHILS % 77.6 % (36.0-66.0); PLATELET COUNT, AUTOMATED 294 10^3/uL (150-450); RED BLOOD COUNT 4.81 10^6/uL (4.00-5.40); WHITE BLOOD COUNT 8.9 10^3/uL (4.0-10.0)
[2020-03-03 06:10] LABS: BLOOD UREA NITROGEN 10 MG/DL (7-18); CALCIUM LEVEL 8.4 MG/DL (8.8-10.2); CARBON DIOXIDE LEVEL 37 MEQ/L (21-32); CHLORIDE LEVEL 93 MEQ/L (98-107); CREATININE FOR GFR 0.65 MG/DL (0.55-1.30); DIGOXIN LEVEL 1.1 NG/ML (0.5-2.0); GLOMERULAR FILTRATION RATE > 60.0 (>39); GLUCOSE, FASTING 114 MG/DL (70-100); MAGNESIUM LEVEL 1.8 MG/DL (1.8-2.4); POTASSIUM SERUM 3.8 MEQ/L (3.5-5.1); SODIUM LEVEL 134 MEQ/L (136-145)
[2020-03-03] MEDS: TIOTROPIUM INHALER/CAPSULE (SPIRIVA) INH SCH (07:42)
[2020-03-03] MEDS: ADVAIR HFA 230/21MCG INHALER INH SCH ×2 (07:42→20:57)
[2020-03-03 08:00] VITALS: BP 99/61
[2020-03-03] MEDS: VITAMIN D 1,000 INTERNATIONAL UNITS TABLET PO SCH (08:36)
[2020-03-03] MEDS: HumaLOG INSULIN (NovoLOG) PER UNIT SC SCH ×4 (08:36→20:59)
[2020-03-03] MEDS: ASPIRIN 81 MG ENTERIC TAB PO SCH (08:37)
[2020-03-03] MEDS: DIGOXIN 0.125 MG TAB PO SCH (08:38)
[2020-03-03] MEDS: SUCRALFATE 1 GM TAB PO SCH ×4 (08:40→20:59)
[2020-03-03] MEDS: predniSONE 20 MG TAB PO SCH (08:41)
[2020-03-03] MEDS: FLUTICASONE PROP 0.05% NASAL SPRAY 16 GM (FLONASE) SCH (08:42)
[2020-03-03] MEDS: CARVedilol 3.125 MG TAB PO SCH ×2 (08:42→20:58)
[2020-03-03 09:34] LABS: APPEARANCE, URINE CLOUDY (CLEAR); BACTERIA, URINE AUTO 1+ (NEGATIVE); BILIRUBIN, URINE AUTO NEGATIVE (NEGATIVE); BLOOD, URINE BLOOD 3+ (NEGATIVE); CALCIUM OXALATE CRYSTALS SMALL; COLOR, URINE AMBER (YELLOW); GLUCOSE, URINE (UA) AUTO NEGATIVE (NEGATIVE); KETONE, URINE AUTO NEGATIVE (NEGATIVE); LEUKOCYTE ESTERASE, URINE AUTO 2+ (NEGATIVE); NITRITE, URINE AUTO NEGATIVE (NEGATIVE); PROTEIN, URINE AUTO 2+ mg/dL (NEGATIVE); RBC, URINE AUTO TNTC /HPF (0-3); SPECIFIC GRAVITY URINE AUTO 1.014 (1.002-1.035); SQUAMOUS EPITHELIAL CELL UR AU 8 /HPF (0-6); WBC, URINE AUTO TNTC /HPF (0-3)
--- NOTE | 2020-03-03 09:42 | IPNPDOC ---
Date Seen The patient was seen on 03/03/20. Progress Note SUBJECTIVE: Patient was seen and examined this morning. There have been no adverse events reported overnight. Patient states that her breathing has improved and she is feeling better then yesterday. She does continue to have hematuria however it has decreased. OBJECTIVE PHYSICAL EXAMINATION: VITAL SIGNS: Please see below. GENERAL: Awake, alert, and oriented. Appears in no acute distress. Lying in bed comfortably HEENT: Atraumatic, normocephalic. Eyes are nonicteric. Trachea is midline. Mu cous membranes pink and moist. CARDIOVASCULAR: Tachycardic rate with irregularly irregular rhythm. No clicks rubs or murmurs RESPIRATORY: Decreased breath sounds throughout with slight expiratory wheeze. No rhonchi or rales. Good respiratory effort. ABDOMINAL: Soft, obese. Nondistended. Nontender. Normoactive bowel sounds throughout EXTREMITIES: 1+ bilateral pitting edema. 2+ PT pulses bilaterally. 2+ radial pulses bilaterally. NEUROLOGICAL: No focal neurological deficits PSYCHOLOGICAL: Mood and affect appear appropriate LABORATORY DATA, IMAGING STUDIES, MICROBIOLOGY: Please see below. Echocardiogram: Pending DVT prophylaxis ordered?: Mechanical due to hematuria ASSESSMENT AND PLAN: Patient is a 70 year old female with a past medical history significant for COPD w/ emphysema, history of small cell lung cancer s/p radiation therapy, history of bladder cancer s/p resection who presented to [facility] with complaint of worsening shortness of breath and hypotension and found to be in atrial fibrillation with RVR. Patient received digoxin loading with appropriate rate control. PROBLEMS: 1. Atrial Fibrillation with RVR -Patient presented with atrial fibrillation with RVR. No previous documentation of A-fib and assumed to be new onset. She was given a total of 0.75mg digoxin loading dose yesterday and started on heparin drip but developed hematuria and therefore heparin was discontinued. She is currently only on aspirin. Patient has remained in atrial fibrillation with rate of 90-110. -Likely cause of her atrial fibrillation is worsening of her pulmonary disease. Additionally patient has been using albuterol nebulizers 3-4 times a day at home -Patient currently on Carvedilol 3.125mg. Will continue at her current dose and start oral digoxin 0.125 reasoning being that she has had soft blood pressures during her hospitalization -Anticoagulation on hold due to hematuria. Continued on ASA 81mg -Echocardiogram pending 2. Shortness of breath 2/2 COPD exacerbation and Afib with RVR -Patient presented with shortness of breath. She had received IV lasix in the ER for what was believed to be a CHF exacerbation and developed hypotension. The patient likely had vascular congestion from poor cardiac output from Atrial fibrillation with RVR. Her breathing status has improved with improvement in her RVR -Patient also presented with wheeze. [place] to be in a mild COPD exacerbation. Patient continued on ipratropium nebulizer. Increased Prednisone to 40mg daily for 5 days. After 5 days she will be continued on Prednisone 10mg PO daily which is her home dose 3. Hematuria -Patient developed hematuria that occurred after being started on heparin drip. Review of patients records indicates that she had a history of bladder cancer which was surgically removed. She follows with Dr. Fuentes outpatient -Hgb stable. Will hold anticoagulation. Patient is continued on aspirin. -Outpatient follow-up with urology for evaluation of hematuria 4. History of ACS s/p cardiac stenting -Patient has a history of ACS with cardiac stents. She is currently on As pirin. -Spironolactone on HOLD as patient appeared hypotensive on presentation -Continue Carvedilol -Lasix on HOLD as patient appears euvolemic -Continue Statin 5. Electrolyte Disturbance -Patient presented with hypokalemia and hypomagesemia. Possible secondary to increased albuterol use at home as well as concomitant lasix use at home. -Mg and K replaced. Will monitor and replace PRN 6. Mild COPD Exacerbation -Patient presented with wheezing. Appears to be mild COPD exacerbation. Will give Ipratropium nebs. HOLD off on Albuterol nebs given her tachycardia. -Continue home inhalers -Start 40mg Prednisone daily for 5 days. After completion will resume 10mg Prednisone as is patients home dose -Oxygen therapy orders for O2 sats 88-92% 7. Diabetes Mellitus Type 2 -Consistent Carb diet -Sliding Scall insulin ACHS coverage 8. GI prophylaxis -Patient on 40mg prednisone daily. Will start protonix PO daily 9. DVT Prophylaxis -Mechanical due to hematuria DISPOSITION: Patient demonstrating clinical improvement. Likely discharge in 24- 48 hours. Follow-up on echocardiogram results VS, I&O, 24H, Fishbone Vital Signs/I&O Vital Signs Date Time Temp Pulse Resp B/P (MAP) Pulse Ox O2 Delivery O2 Flow Rate FiO2 03/03/20 08:42 98 99/61 03/03/20 04:00 4.0 03/03/20 04:00 98.0 22 97 Nasal Cannula 03/02/20 00:08 94 I&O- Last 24 Hours up to 6 AM 03/03/20 06:00 Intake Total 1459 ml Output Total 400 ml Balance 1059 ml Laboratory Data 24H LABS Laboratory Tests 2 03/02/20 09:25: Activated Partial Thromboplast Time 38.0, Magnesium Level 2.1 03/02/20 11:12: Bedside Glucose (Misc Panel) 193H 03/02/20 13:52: Magnesium Level 2.0, Anion Gap 7L, Glomerular Filtration Rate > 60.0, Calcium Level 8.3L 03/02/20 17:33: Bedside Glucose (Misc Panel) 182H 03/02/20 18:24: Anion Gap 4L, Glomerular Filtration Rate > 60.0, Calcium Level 8.0L, Magnesium Level 1.7L 03/02/20 20:02: Bedside Glucose (Misc Panel) 172H 03/03/20 00:00: Anion Gap 5L, Glomerular Filtration Rate > 60.0, Calcium Level 8.7L, Magnesium Level 1.8 03/03/20 05:03: Anion Gap 4L, Glomerular Filtration Rate > 60.0, Calcium Level 8.4L, Magnesium Level 1.8, Immature Granulocyte % (Auto) 2.1, Neutrophils (%) (Auto) 77.6H, Lymphocytes (%) (Auto) 12.7L, Monocytes (%) (Auto) 7.0H, Eosinophils (%) (Auto) 0.2, Basophils (%) (Auto) 0.4, Neutrophils # (Auto) 6.9, Lymphocytes # (Auto) 1.1L, Monocytes # (Auto) 0.6, Eosinophils # (Auto) 0.0, Basophils # (Auto) 0.0, Nucleated Red Blood Cells % (auto) 0.0, Digoxin Level 1.1 03/03/20 07:26: Bedside Glucose (Misc Panel) 126H CBC/BMP Laboratory Tests 03/02/20 09:25 03/02/20 13:52 03/02/20 18:24 03/03/20 00:00 03/03/20 05:03 Microbiology Microbiology 03/01/20 Blood Culture - Preliminary, Resulted No growth after 24 hours . All specim... GME ATTESTATION GME ATTESTATION My faculty preceptor for this patient encounter was physically present during the encounter and was fully available. All aspects of the patient interview, ex amination, medical decision making process, and medical care plan development were reviewed and approved by the faculty preceptor. The faculty preceptor is aware and concurs with the plan as stated in the body of this note and will attest to such by his/her cosignature. ATTENDING NOTE I, Nazario Graham, have independently examined this patient and performed my own p hysical exam, as well as reviewed the documentation and edited where necessary. I have discussed in detail with the resident / student the findings and plan of treatment as documented by the resident / student and edited their note. I agree with their findings and treatment plan and have edited their documentation. I will continue to follow the patient during this hospital stay. LUKE DUENAS DO Mar 03, 2020 09:42 NAZARIO GRAHAM MD Mar 03, 2020 12:43
[2020-03-03 12:00] VITALS: BP 105/67
[2020-03-03] MEDS: PANTOPRAZOLE 40MG TAB (PROTONIX) PO SCH (12:12)
[2020-03-03 12:23] LABS: BLOOD UREA NITROGEN 12 MG/DL (7-18); CALCIUM LEVEL 8.9 MG/DL (8.8-10.2); CARBON DIOXIDE LEVEL 34 MEQ/L (21-32); CHLORIDE LEVEL 90 MEQ/L (98-107); CREATININE FOR GFR 0.88 MG/DL (0.55-1.30); GLOMERULAR FILTRATION RATE > 60.0 (>39); GLUCOSE, FASTING 241 MG/DL (70-100); POTASSIUM SERUM 3.9 MEQ/L (3.5-5.1); SODIUM LEVEL 130 MEQ/L (136-145)
[2020-03-03] MEDS: MAG SULF 1GM/100ML (MAG RUN) 1 GM in IV 1 EA IV SCH ×2 (14:45→15:58)
[2020-03-03 15:00] VITALS: BP 120/70
[2020-03-03] MEDS: traMADol 50 MG TAB PO PRN (15:57)
[2020-03-03 18:49] LABS: BLOOD UREA NITROGEN 14 MG/DL (7-18); CALCIUM LEVEL 8.5 MG/DL (8.8-10.2); CARBON DIOXIDE LEVEL 34 MEQ/L (21-32); CHLORIDE LEVEL 91 MEQ/L (98-107); CREATININE FOR GFR 0.79 MG/DL (0.55-1.30); GLOMERULAR FILTRATION RATE > 60.0 (>39); GLUCOSE, FASTING 259 MG/DL (70-100); POTASSIUM SERUM 4.1 MEQ/L (3.5-5.1); SODIUM LEVEL 131 MEQ/L (136-145)
[2020-03-03 20:00] VITALS: BP 114/58
[2020-03-03] MEDS: GABAPENTIN 300 MG CAP PO SCH (20:58)
[2020-03-03] MEDS: SIMVASTATIN 40 MG TAB PO SCH (20:59)
[2020-03-03] MEDS: CETIRIZINE (ZyrTEC) 10 MG TAB PO SCH (20:59)
[2020-03-04 00:18] LABS: CALCIUM LEVEL 9.1 MG/DL (8.8-10.2); CREATININE FOR GFR 0.98 MG/DL (0.55-1.30); GLOMERULAR FILTRATION RATE 59.4 (>39); POTASSIUM SERUM 3.5 MEQ/L (3.5-5.1)
[2020-03-04 04:00] VITALS: BP 114/77
--- NOTE | 2020-03-04 05:38 | ECGEPIP ---
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
[2020-03-04 05:44] LABS: BASO % 0.3 % (0.0-1.0); EOS % 0.1 % (0.0-3.0); HEMATOCRIT 36.5 % (36.0-47.0); HEMOGLOBIN 11.5 g/dl (12.0-15.5); LYMPH % 8.4 % (24.0-44.0); MEAN CORPUSCULAR HEMOGLOBIN 25.6 pg (27.0-33.0); MEAN CORPUSCULAR HGB CONC 31.5 g/dl (32.0-36.5); MEAN CORPUSCULAR VOLUME 81.1 fl (80.0-96.0); MONO # 0.7 10^3/uL (0.0-0.8); MONO % 6.5 % (0.0-5.0); NEUTROPHILS # 9.6 10^3/uL (1.5-8.5); NEUTROPHILS % 83.3 % (36.0-66.0); PLATELET COUNT, AUTOMATED 236 10^3/uL (150-450); WHITE BLOOD COUNT 11.5 10^3/uL (4.0-10.0)
[2020-03-04 08:00] VITALS: BP 100/49
[2020-03-04] MEDS: CARVedilol 3.125 MG TAB PO SCH ×2 (08:08→21:00)
[2020-03-04] MEDS: HumaLOG INSULIN (NovoLOG) PER UNIT SC SCH ×4 (08:09→21:00)
[2020-03-04] MEDS: SUCRALFATE 1 GM TAB PO SCH ×4 (08:10→22:04)
[2020-03-04] MEDS: DIGOXIN 0.125 MG TAB PO SCH (08:10)
[2020-03-04] MEDS: PANTOPRAZOLE 40MG TAB (PROTONIX) PO SCH (08:10)
[2020-03-04] MEDS: predniSONE 20 MG TAB PO SCH (08:10)
[2020-03-04] MEDS: VITAMIN D 1,000 INTERNATIONAL UNITS TABLET PO SCH (08:10)
[2020-03-04] MEDS: ASPIRIN 81 MG ENTERIC TAB PO SCH (08:10)
[2020-03-04] MEDS: ADVAIR HFA 230/21MCG INHALER INH SCH ×2 (08:25→19:51)
[2020-03-04] MEDS: TIOTROPIUM INHALER/CAPSULE (SPIRIVA) INH SCH (08:25)
[2020-03-04 09:33] LABS: BLOOD UREA NITROGEN 12 MG/DL (7-18); CALCIUM LEVEL 8.6 MG/DL (8.8-10.2); CARBON DIOXIDE LEVEL 36 MEQ/L (21-32); CHLORIDE LEVEL 96 MEQ/L (98-107); CREATININE FOR GFR 0.75 MG/DL (0.55-1.30); GLOMERULAR FILTRATION RATE > 60.0 (>39); GLUCOSE, FASTING 152 MG/DL (70-100); MAGNESIUM LEVEL 1.8 MG/DL (1.8-2.4); POTASSIUM SERUM 3.6 MEQ/L (3.5-5.1); SODIUM LEVEL 135 MEQ/L (136-145)
[2020-03-04 09:34] LABS: C REACTIVE PROTEIN QUANTITATIV 0.56 MG/DL (0.00-0.30)
[2020-03-04] MEDS: FLUTICASONE PROP 0.05% NASAL SPRAY 16 GM (FLONASE) SCH (10:32)
--- NOTE | 2020-03-04 11:28 | IPNPDOC ---
Text Note Date of Service The patient was seen on 03/04/20. NOTE Subjective: Patient is a 70-year-old female with a PMHx of COPD w/ Emphysema, Hx of small cell lung cancer (s/p radiation), CHRISTINE on CPAP, HTN, DLP, DM2, Hx of bladder cancer (s/p resection), OA and GERD who presented to the ER with worsening shortness of breath and hypotension. Patient was found to be in A. fib with RVR. Patient was admitted to the hospitalist service for further evaluation and treatment. She has received digoxin loading. Patient was seen and examined at the bedside. Patient reports she has had an uneventful night. She denies any chest pain, shortness of breath, cough or palpitations. Denies any nausea, vomiting, abdominal pain. She does report some loose bowel movements this morning. Denies any urinary discomfort. Objective: Vitals (See below) General: Siting up in chair, appears to be comfortable and in no acute distress, AAOx3 HEENT: NC, AT CVS: IrIr, +S1S2 Lungs: Fair air entry b/l, auscultation is without any rhonchi / rales / wheezing Abdomen: Soft, ND, NT, Obese Extremities: Trace edema, - Calf tenderness Assessment and plan: Atrial Fibrillation with RVR - Rate remains controlled 80-110 - TSH noted - c/w Rate / Rhythm control with Metoprolol and Digoxin - c/w ASA 81 - Anticoagulation could not be safely continued given gross hematuria - Discussed stroke risk with patient; currently will hold off on anticoagulation and she will follow up with her PCP / Urologist - patient has verbalized understanding Shortness of breath 2/2 COPD exacerbation and Afib with RVR - Currently patient feels better; denies any CP, SOB or palpitations - Saturating well; will taper down oxygen as tolerated - CXR 03/02: Increased density in the right perihilar region question infiltrate versus atelectasis. - s/p Furosemide in the ER; Furosemide from outpatient on hold - COPD (See below) Mild COPD Exacerbation - Physical without any significant wheezing noted - c/w supplemental oxygen to maintain saturation between 88-92% - c/w Prednisone - will begin to taper; eventually return to baseline Prednisone of 10 daily - c/w Inhaled therapy as ordered Hematuria - likely 2/2 combination fo bladder CA and heparin drip - Heparin drip was discontinued - Hg remains stable - Will have outpatient follow up with Urology CAD s/p cardiac stenting - c/w ASA, Carvedilol, Simvastatin - Furosemide on hold Electrolyte imbalance - s/p Hypomagnesemia / Hypokalemia NIDM2 - c/w ISS GERD - c/w Protonix and Sucralfate DVT prophylaxis - c/w TEDs/Sequentials (re: Hematuria) Disposition: - Will get PT on board for evaluation VS,Cullen, I+O VS, Kaie, I+O Laboratory Tests 03/03/20 11:38 03/03/20 18:04 03/03/20 23:35 03/04/20 05:18 03/04/20 05:19 Vital Signs Date Time Temp Pulse Resp B/P (MAP) Pulse Ox O2 Delivery O2 Flow Rate FiO2 03/04/20 08:10 87 03/04/20 08:08 100/49 03/04/20 08:00 97.2 18 98 Nasal Cannula 2.0 03/02/20 00:08 94 I&O- Last 24 Hours up to 6 AM 03/04/20 06:00 Intake Total 1180 ml Output Total 1970 ml Balance -790 ml SHEFALI GRAHAM MD Mar 04, 2020 11:28
[2020-03-04] MEDS ORDERED: LEVALBUTEROL 1.25 MG/0.5 ML CONCENTRATE NEB INH PRN (11:30)
[2020-03-04 12:00] VITALS: BP 108/51
[2020-03-04 16:00] VITALS: BP 123/77
[2020-03-04] MEDS ORDERED: SLF 3 ML SYR IV PRN (16:15)
[2020-03-04 20:00] VITALS: BP_SYST 123; BP_SYST 149; BP_DIAS 73; BP_DIAS 77
[2020-03-04] MEDS: SIMVASTATIN 40 MG TAB PO SCH (22:04)
[2020-03-04] MEDS: GABAPENTIN 300 MG CAP PO SCH (22:04)
[2020-03-04] MEDS: traMADol 50 MG TAB PO PRN (22:06)
[2020-03-04] MEDS: CETIRIZINE (ZyrTEC) 10 MG TAB PO SCH (22:19)
[2020-03-04] MEDS: SLF 3 ML SYR IV SCH (22:25)
[2020-03-05] VITALS: BP 119/59
[2020-03-05 04:00] VITALS: BP 123/53
[2020-03-05 05:45] LABS: BASO % 0.4 % (0.0-1.0); EOS % 0.2 % (0.0-3.0); HEMATOCRIT 36.1 % (36.0-47.0); HEMOGLOBIN 10.8 g/dl (12.0-15.5); LYMPH # 1.2 10^3/uL (1.5-5.0); LYMPH % 10.6 % (24.0-44.0); MEAN CORPUSCULAR HEMOGLOBIN 24.6 pg (27.0-33.0); MEAN CORPUSCULAR HGB CONC 29.9 g/dl (32.0-36.5); MEAN CORPUSCULAR VOLUME 82.2 fl (80.0-96.0); MONO # 0.7 10^3/uL (0.0-0.8); MONO % 6.3 % (0.0-5.0); NEUTROPHILS # 8.8 10^3/uL (1.5-8.5); PLATELET COUNT, AUTOMATED 256 10^3/uL (150-450); RED BLOOD COUNT 4.39 10^6/uL (4.00-5.40); WHITE BLOOD COUNT 10.9 10^3/uL (4.0-10.0)
[2020-03-05] MEDS: SLF 3 ML SYR IV SCH (06:16)
[2020-03-05 07:26] VITALS: BP 106/57
[2020-03-05 07:31] LABS: BLOOD UREA NITROGEN 12 MG/DL (7-18); CARBON DIOXIDE LEVEL 35 MEQ/L (21-32); CHLORIDE LEVEL 99 MEQ/L (98-107); CREATININE FOR GFR 0.69 MG/DL (0.55-1.30); GLOMERULAR FILTRATION RATE > 60.0 (>39); GLUCOSE, FASTING 154 MG/DL (70-100); MAGNESIUM LEVEL 1.6 MG/DL (1.8-2.4); POTASSIUM SERUM 3.8 MEQ/L (3.5-5.1); SODIUM LEVEL 139 MEQ/L (136-145)
[2020-03-05] MEDS: ADVAIR HFA 230/21MCG INHALER INH SCH (07:38)
[2020-03-05] MEDS: TIOTROPIUM INHALER/CAPSULE (SPIRIVA) INH SCH (07:38)
[2020-03-05] MEDS: ASPIRIN 81 MG ENTERIC TAB PO SCH (08:10)
[2020-03-05] MEDS: HumaLOG INSULIN (NovoLOG) PER UNIT SC SCH ×2 (08:10→12:09)
[2020-03-05] MEDS: DIGOXIN 0.125 MG TAB PO SCH (08:10)
[2020-03-05 08:11] VITALS: BP 106/57
[2020-03-05] MEDS: VITAMIN D 1,000 INTERNATIONAL UNITS TABLET PO SCH (08:11)
[2020-03-05] MEDS: PANTOPRAZOLE 40MG TAB (PROTONIX) PO SCH (08:11)
[2020-03-05] MEDS: CARVedilol 3.125 MG TAB PO SCH (08:11)
[2020-03-05] MEDS: SUCRALFATE 1 GM TAB PO SCH ×2 (08:11→12:08)
[2020-03-05] MEDS: FLUTICASONE PROP 0.05% NASAL SPRAY 16 GM (FLONASE) SCH (08:13)
[2020-03-05] MEDS ORDERED: MAG SULF 1GM/100ML (MAG RUN) 1 GM in IV 1 EA IV ONE (08:30)
[2020-03-05] MEDS ORDERED: predniSONE 10 MG TAB PO SCH (09:00)
[2020-03-05] MEDS ORDERED: ELIQ5TAB PO (11:22)
--- NOTE | 2020-03-05 12:45 | ECHO ---
DATE OF PROCEDURE: 03/02/2020 Age: 70 Gender: Female REFERRING PROVIDER: Billy Thomas DO PATIENT LOCATION: Room 3206 REASON FOR STUDY: Heart failure, unspecified. 2D MEASUREMENTS: IVS 1.0 cm LV 4.8 cm LVPW 1.0 cm LA 3.7 cm Aorta 3.0 cm IVC 1.37 cm DOPPLER MEASUREMENT Peak velocity across the aortic valve 1.3 m/s Peak velocity across the LVOT 1.2 m/s Mitral E 0.77 Mitral A 0.90 with a ratio of 0.9 2D COMMENTS: 1. Normal left ventricular size, wall thickness, and normal global left ventricular systolic function. The estimated left ventricular systolic ejection fraction is 60% to 65%. 2. Normal left atrium. Normal right atrium and right ventricle. 3. The atrial septum appeared to be normal without evidence of defect or shunt. 4. Normal aortic root. 5. A small pericardial effusion was noted, no evidence of cardiac tamponade. 6. Mildly calcified aortic valve with normal leaflet excursion. Minimally calcified mitral annulus with normal anterior mitral valve leaflet motion. Normal tricuspid valve. The pulmonic valve and proximal pulmonary artery branches were not well visualized. 7. The inferior vena cava was normal in size. Central venous pressure is most likely normal. Doppler with no significant valvular abnormalities detected. Abnormal relaxation pattern was noted across the mitral valve leaflet and annulus consistent with features of grade 1 left ventricular diastolic dysfunction. IMPRESSION: 1. Normal global left ventricular systolic function. There are some features of grade 1 left ventricular diastolic dysfunction manifested by abnormal relaxation. 2. Aortic valve sclerosis without stenosis or aortic regurgitation. 3. A small pericardial effusion was noted, no evidence of cardiac tamponade. 4. This study was technically limited due to poor acoustic window secondary to lung interference. [facility]
[2020-03-05] MEDS ORDERED: PRED10TA2 PO (13:45)
[2020-03-05] MEDS ORDERED: DIGO0.123 PO (13:45)
--- NOTE | 2020-03-05 17:54 | DS.PDOC ---
Discharge Summary General Date of Admission Mar 02, 2020 at 02:16 Date of Discharge Mar 05, 2020 at 13:00 Primary Care Physician: VIRGILIO SOTELO D.O. Attending Physician: NAZARIO BYRNE MD Discharge Summary PROCEDURES PERFORMED DURING STAY: None. ADMITTING DIAGNOSES: 1. Atrial fibrillation with rapid ventricular rate 2. Hypotension, hypomagnesemia 3. COPD 4. Type 2 diabetes mellitus 5. Osteoarthritis 6. Hypertension 7. Dyslipidemia 8. Sleep apnea 9. GERD DISCHARGE DIAGNOSES: 1. COPD 2. Type 2 diabetes mellitus 3. Osteoarthritis 4. Hypertension 5. Dyslipidemia 6. Sleep apnea 7. GERD COMPLICATIONS/CHIEF COMPLAINT: Afiv With Rvr, Hypomagnesemia. HISTORY OF PRESENT ILLNESS: Mrs. Iglesias is a 70 year old female patient with past medical history of COPD on duonebs at home and no home oxygen, HTN well controlled with mediation, type 2 DM on oral medication at home, sleep apnea on CPAP at home, history of CHF no prior echo available on Lasix, Coreg and spironolactone at home, bladder cancer s/p TURBT, lung cancer, was brought to ED due to confusion. She was hypotensive in ED and her HR was in 150s. ECG showed atrial fibrillation with rapid ventricular rate. She reports to have cough and SOB. HOSPITAL COURSE: She was admitted to the hospital in ICU as patient was in A. fib with RVR most likely she was hypotensive due to Beta agonist inhalers which caused her A. fib versus A. fib causing hypotension. Her home Lasix and spironolactone were held and she was treated with digoxin. Her electrolyte imbalance was corrected as she came in with hypomagnesemia and hypokalemia. Patient was initially started on heparin drip which later she developed hematuria and the drip was held. Her rate and rhythm were controlled with metoprolol and digoxin. She did have echocardiogram done. Patient gradually improved. Discussed with urology about resuming anticoagulation.. She will be started on liquids and will have outpatient follow-up with urology for cystoscopy. History of bladder cancer. DISCHARGE MEDICATIONS: Please see below. ALLERGIES: Please see below. PHYSICAL EXAMINATION ON DISCHARGE: VITAL SIGNS: Please see below. General: Patient is awake, alert, oriented times three, sitting in chair in no apparent distress Cardiovascular: S1, S2 heard, irregular rhythm, no murmur, rub, or gallop. Respiratory: Clear breath sounds heard bilaterally no wheezes, rubs or rhonchi heard. Abdomen: Soft, bowel sounds positive, no bruits. No tenderness on palpation Extremities: No clubbing or cyanosis. No edema. Central nervous system (CCTV TECHNICIAN): Awake, alert and fully oriented. Skin: No rashes, lesions, ulcerations, subcutaneous nodules or induration. LABORATORY DATA: Please see below. IMAGING: A CT head without contrast performed on 03/01/2020 and was reported to show no acute intracranial pathology appreciated. Chronic atrophic and micro- ischemic changes. A chest x-ray was performed on 03/01/2020 reported as increased density in the right perihilar region question infiltrate versus atelectasis. Echo: 03/02/2020 reported as normal global left ventricle systolic function. There are some features of grade 1 left ventricle and diastolic dysfunction manifested by abnormal relaxation. Aortic valve sclerosis without stenosis or aortic regurgitation. A small pericardial effusion was noted, no evidence of cardiac tamponade. This study was technically limited due to poor acoustic window secondary to lung interference. PROGNOSIS: Good ACTIVITY: As tolerated. DIET: 2 g sodium diet, diabetic diet DISCHARGE PLAN: Discharge home with follow-up with PCP in 3-5 days DISPOSITION: Home Health Service. DISCHARGE INSTRUCTIONS: 1. Follow-up with PCP in 3-[address] Fuentes urologist was contacted regarding the start of anticoagulation as patient had hematuria during the hospital admission. Will resume anticoagulation and send her home as he is going to see her in a week to do a cystoscopy. 3. If patient has any blood in her urine prior to seeing Dr. Fuentes please call urology clinic for early appointment. 4. Patient is being discharged home on Eliquis 5 mg twice daily, and digoxin 0.125 mg daily. ITEMS TO FOLLOWUP ON ON OUTPATIENT: 1. Follow-up with PCP in 3-5 days. 2. Patient has appointment with urology on 03/12/2022 to get cystoscopy. DISCHARGE CONDITION: Stable. TIME SPENT ON DISCHARGE: Greater than 30 minutes. Vital Signs/I&Os Vital Signs Date Time Temp Pulse Resp B/P (MAP) Pulse Ox O2 Delivery O2 Flow Rate FiO2 03/05/20 12:00 2.0 03/05/20 08:11 78 106/57 03/05/20 07:26 97.7 20 97 Nasal Cannula 03/02/20 00:08 94 I&O- Last 24 Hours up to 6 AM 03/05/20 06:00 Intake Total 1360 ml Output Total 1550 ml Balance -190 ml Laboratory Data Labs 24H Laboratory Tests 2 03/04/20 17:36: Bedside Glucose (Misc Panel) 304H 03/04/20 22:15: Bedside Glucose (Misc Panel) 206H 03/05/20 05:24: Immature Granulocyte % (Auto) 1.5, Neutrophils (%) (Auto) 81.0H, Lymphocytes (%) (Auto) 10.6L, Monocytes (%) (Auto) 6.3H, Eosinophils (%) (Auto) 0.2, Basophils (%) (Auto) 0.4, Neutrophils # (Auto) 8.8H, Lymphocytes # (Auto) 1.2L, Monocytes # (Auto) 0.7, Eosinophils # (Auto) 0.0, Basophils # (Auto) 0.0, Nucleated Red Blood Cells % (auto) 0.0, Anion Gap 5L, Glomerular Filtration Rate > 60.0, Calcium Level 9.0, Magnesium Level 1.6L 03/05/20 06:55: Bedside Glucose (Misc Panel) 155H 03/05/20 11:38: Bedside Glucose (Misc Panel) 311H CBC/BMP Laboratory Tests 03/05/20 05:24 FSBS Laboratory Tests Test 03/04/20 17:36 03/04/20 22:15 03/05/20 06:55 03/05/20 11:38 Range/Units Bedside Glucose (Misc Panel) 304 206 155 311 83-110 MG/DL Microbiology Microbiology 03/03/20 Urine Culture, Received Pending 03/01/20 Blood Culture - Preliminary, Resulted No Growth after 72 hours. All specime... Discharge Medications Scheduled Apixaban (Eliquis) 5 Mg Tablet, 1 TAB PO BID Aspirin (Aspirin EC) 81 Mg Tab, 81 MG PO DAILY, (Reported) Carvedilol (Carvedilol) 3.125 Mg Tablet, 3.125 MG PO BID, (Reported) Cetirizine HCl (Cetirizine HCl) 10 Mg Tablet, 10 MG PO QHS, (Reported) Cholecalciferol (Vitamin D3) (Vitamin D3) 1,000 Unit Tablet, 2,000 UNITS PO DAILY, (Reported) Digoxin (Digoxin) 125 Mcg Tablet, 0.125 MG PO DAILY Esomeprazole Magnesium (Esomeprazole Magnesium) 40 Mg Capsule.dr, 40 MG PO BID, (Reported) Fluticasone Propion/Salmeterol (Advair Hfa 230-21 Mcg Inhaler) 12 Gm Hfa.aer.ad, 2 PUFF INH BID, (Reported) Fluticasone Propionate (Flonase Allergy Relief) 50 Mcg/Act Spr, 2 SPRAYS NA DAILY, (Reported) Gabapentin (Gabapentin) 300 Mg Cap, 600 MG PO QHS, (Reported) Ipratropium/Albuterol Sulfate (Iprat-Albut 0.5-3(2.5) mg/3 ml) 3 Ml Ampul.neb, 3 ML INH QID, (Reported) Metformin HCl (Metformin HCl) 1,000 Mg Tab, 1,000 MG PO BID, (Reported) Potassium Chloride (Potassium Chloride) 20 Meq Tab.er.prt, 20 MEQ PO BID, (Reported) Prednisone (Prednisone) 10 Mg Tablet, 10 MG PO DAILY, (Reported) Simvastatin (Zocor) 40 Mg Tab, 40 MG PO QHS, (Reported) Sitagliptin Phosphate (Januvia) 100 Mg Tablet, 100 MG PO DAILY, (Reported) Sucralfate (Sucralfate) 1 Gm Tab, 1 GM PO ACHS, (Reported) Tiotropium [place] Monohydrate (Spiriva) 18 Mcg Cap.w.dev, 1 INHALATION INH DAILY, (Reported) Scheduled PRN Tramadol HCl (Tramadol HCl) 50 Mg Tab, 50 MG PO QHS PRN for PAIN, (Reported) Allergies Coded Allergies: Penicillins (Verified Allergy, Intermediate, Hives, 09/06/18) GME ATTESTATION GME ATTESTATION My faculty preceptor for this patient encounter was physically present during the encounter and was fully available. All aspects of the patient interview, examination, medical decision making process, and medical care plan development were reviewed and approved by the faculty preceptor. The faculty preceptor is aware and concurs with the plan as stated in the body of this note and will attest to such by his/her cosignature. ATTENDING NOTE I, Nazario Byrne, have independently examined this patient and performed my own physical exam, as well as reviewed the documentation and edited where necessary. I have discussed in detail with the resident / student the findings and plan of treatment as documented by the resident / student and edited their note. I agree with their findings and treatment plan and have edited their documentation. I will continue to follow the patient during this hospital stay. Time spent on discharge 35 minutes Atrial Fibrillation with RVR - Rate remains controlled 80-110 - TSH noted - c/w Rate / Rhythm control with Metoprolol and Digoxin - c/w ASA 81 - Anticoagulation started with Eliquis after discussion with Urology Mild COPD Exacerbation - Physical without any significant wheezing noted - c/w supplemental oxygen to maintain saturation between 88-92% - c/w Prednisone - will continue taper and return to baseline Prednisone of 10 daily - c/w Inhaled therapy as ordered Shortness of breath 2/2 COPD exacerbation and Afib with RVR - Currently patient feels better; denies any CP, SOB or palpitations - Saturating well; will taper down oxygen as tolerated - CXR 03/02: Increased density in the right perihilar region question infiltrate versus atelectasis. - s/p Furosemide in the ER; Furosemide from outpatient on hold - COPD (See above) s/p Hematuria - likely 2/2 combination fo bladder CA and heparin drip - Heparin drip was discontinued - Hg remains stable - Discussed with Urology; will resume anticoagulation and have Urology follow up for cystoscopy; appointment within 5 days Rachid Turpin MD Mar 05, 2020 17:54 NAZARIO BYRNE MD Mar 05, 2020 18:10
== END 2020-03-05 14:14 | disposition home health service (06) | DRG 309 ==
LOC: M ED 19:23 → M ED INP 03-02 02:16 → ENRESERV 03-02 02:47 → M ICU 03-02 03:31 → M PCU 03-03 15:21
PROVIDERS: ADMIT Family Medicine; ATTEND Family Medicine
DX: I48.91 Unspecified atrial fibrillation (principal); J44.1 Chronic obstructive pulmonary disease with (acute) exacerbation; I95.9 Hypotension, unspecified; I50.9 Heart failure, unspecified; R55 Syncope and collapse; E83.42 Hypomagnesemia; I12.9 Hypertensive chronic kidney disease with stage 1 through stage 4 chronic kidney disease, or unspecified chronic kidney disease; R31.9 Hematuria, unspecified; K21.9 Gastro-esophageal reflux disease without esophagitis; G47.33 Obstructive sleep apnea (adult) (pediatric); M19.90 Unspecified osteoarthritis, unspecified site; E11.9 Type 2 diabetes mellitus without complications; E78.5 Hyperlipidemia, unspecified; Z85.51 Personal history of malignant neoplasm of bladder; Z85.118 Personal history of other malignant neoplasm of bronchus and lung; Z79.899 Other long term (current) drug therapy; Z79.82 Long term (current) use of aspirin; Z88.0 Allergy status to penicillin; Z95.2 Presence of prosthetic heart valve; Z87.891 Personal history of nicotine dependence; Z96.643 Presence of artificial hip joint, bilateral; E87.6 Hypokalemia

== ENCOUNTER → 2020-03-12 | Outpatient (REF) | payer MEDICARE, MEDICAID, OTHER ==
[~2020-03-12] MED LIST changes: +ADVA230A INH; +DIGO0.123 PO; +ELIQ5TAB PO; +TIOT18INH INH
== END ==
LOC: M SMT 13:26
PROVIDERS: ATTEND Urology
DX: C67.9 Malignant neoplasm of bladder, unspecified (principal)

== ENCOUNTER → 2020-03-30 | Outpatient (CLI) | payer MEDICARE, MEDICAID ==
[~2020-03-30] MED LIST changes: +ISOVUE-370 76% 100ML VIAL As Ordered ONE
--- NOTE | 2020-03-30 19:18 | REP ---
INDICATION: BLADDER CA. COMPARISON: Comparison CT study October 12, 2018.. Comparison is made with imaging from chest CT study dated July 12, 2019. TECHNIQUE: Contrast dose: 100 ML of Isovue [address] technique: Helical scanning is acquired and overlapping 1.5 mm and contiguous 3 mm axial images are reformatted. In addition, maximum intensity projection and multiplanar re-formation images are generated in sagittal and coronal imaging projections. Dual phase post-contrast imaging is acquired. FINDINGS: Preliminary digital engineer booster and exhauster radiograph demonstrates bilateral hip arthroplasties and degenerative spondylosis and levoconvex scoliosis in the lumbar spine. There has been an interval increase in the size and number of the metastatic nodule seen in the lung bases bilaterally in the interval since the July 12, 2019 study. No pleural effusion or upper abdominal ascites is seen. Pre and dual phase post-contrast imaging of the liver shows no focal liver mass lesion. The spleen is homogeneous in size normal in texture. Kidneys enhance symmetrically. There are small cortical cysts bilaterally in the lower poles. Delayed images the kidneys show no filling defect in the upper tract collecting system. There is no evidence of hydronephrosis. Ureters describe a normal course to the urinary bladder. There is spray artifact across the urinary bladder due to bilateral hip arthroplasties as previously noted. No pelvic mass or adenopathy is seen. No retroperitoneal mass or adenopathy is observed. No abnormality is noted in the pancreas. The gallbladder is surgically absent. No bony destructive lesion is appreciated. IMPRESSION: Evidence of progression in pulmonary metastatic nodules is visible in the lung bases bilaterally. [place] artifact across the pelvis from hip arthroplasties. Otherwise no active disease in the abdomen or pelvis. <Electronically signed by Rafy Barrera > 03/30/201913
== END ==
LOC: M RAD 15:50
PROVIDERS: ATTEND Urology
DX: C67.9 Malignant neoplasm of bladder, unspecified (principal); N28.1 Cyst of kidney, acquired; C78.01 Secondary malignant neoplasm of right lung; C78.02 Secondary malignant neoplasm of left lung
CPT/HCPCS: 74178; Q9967

== ENCOUNTER → 2020-04-13 | Outpatient (CLI) | payer MEDICARE, MEDICAID ==
[~2020-04-13] MED LIST changes: -ISOVUE-370 76% 100ML VIAL As Ordered ONE
[2020-04-13 16:27] LABS: HEMOGLOBIN A1c 7.8 %
[2020-04-13 16:37] LABS: ALBUMIN 3.2 GM/DL (3.2-5.2); ALT/SGPT 21 U/L (12-78); BILIRUBIN,TOTAL 0.5 MG/DL (0.2-1.0); BLOOD UREA NITROGEN 19 MG/DL (7-18); CALCIUM LEVEL 8.6 MG/DL (8.8-10.2); CARBON DIOXIDE LEVEL 30 MEQ/L (21-32); CHLORIDE LEVEL 97 MEQ/L (98-107); CHOLESTEROL LEVEL 152 MG/DL (<200); CHOLESTEROL RISK RATIO 2.451 (<5); CREATININE FOR GFR 0.92 MG/DL (0.55-1.30); GLOMERULAR FILTRATION RATE > 60.0 (>39); GLUCOSE, FASTING 157 MG/DL (70-100); HDL CHOLESTEROL 62 MG/DL (>40); LDL CHOLESTEROL 40 MG/DL (<100); NON-HDL-C 90 MG/DL; POTASSIUM SERUM 4.6 MEQ/L (3.5-5.1); SODIUM LEVEL 136 MEQ/L (136-145); TOTAL PROTEIN 6.6 GM/DL (6.4-8.2); TRIGLYCERIDES LEVEL 250 MG/DL (<150)
== END ==
LOC: M LAB 15:37
PROVIDERS: ATTEND Student in an Organized Health Care Education/Training Program
DX: I50.9 Heart failure, unspecified (principal); E11.8 Type 2 diabetes mellitus with unspecified complications

== ENCOUNTER → 2020-04-16 | Outpatient (CLI) | payer MEDICARE, MEDICAID ==
[~2020-04-16] MED LIST changes: +ISOVUE-370 76% 100ML VIAL As Ordered ONE
--- NOTE | 2020-04-16 11:12 | REP ---
INDICATION: LUNG CA COMPARISON: 07/12/2019 TECHNIQUE: Axial contrast enhanced images from the thoracic inlet to the upper abdomen with coronal and sagittal reformations using 75 ml Isovue 370 intravenous contrast [address] examination was performed using the following dose reduction techniques: Automated exposure control, adjustment of mA and/or kv according to the patient's size, and use of iterative reconstruction technique. FINDINGS: Innumerable pulmonary metastatic lesions are identified primarily involving the bilateral lower lung vargas and considerably increased compared with prior examination. Metastatic lesions measure up to approximately 15 mm. Ill-defined areas of consolidation and surrounding fibrosis/scarring involving the medial right middle lobe is also again identified and relatively stable. No significant pleural effusion. No pneumothorax. Tracheobronchial tree is patent. No significant mediastinal, hilar, or axial adenopathy noted. Chronic calcified mediastinal/hilar lymph nodes and few scattered small calcified pulmonary nodules remain stable. Atherosclerotic changes to the thoracic aorta and coronary arteries noted without aortic aneurysm or cardiomegaly. No pericardial effusion. Limited upper abdomen demonstrates normal bilateral adrenal glands and stable upper pole right renal hypodensity consistent with cyst. Surrounding musculoskeletal structures demonstrate age-related degenerative changes. IMPRESSION: 1. Increased bilateral pulmonary metastatic lesions measuring up to 15 mm. 2. Ill-defined area of consolidation and surrounding fibrosis/scarring involving the medial right middle lobe remains stable. No further significant areas of consolidation noted. No effusion. No pneumothorax. No adenopathy. <Electronically signed by José Miguel Kay > 04/16/20 1105
== END ==
LOC: M RAD 10:13
PROVIDERS: ATTEND Urology
DX: C34.31 Malignant neoplasm of lower lobe, right bronchus or lung (principal); C34.32 Malignant neoplasm of lower lobe, left bronchus or lung
CPT/HCPCS: 71260; Q9967

== ENCOUNTER 2020-04-17 11:13 | Emergency (ER) | payer MEDICARE, MEDICAID ==
[~2020-04-17 11:13] MED LIST changes: -ISOVUE-370 76% 100ML VIAL As Ordered ONE
[2020-04-17] MEDS ORDERED: SUCCINYLCHOLINE 100 MG/5 ML SYRINGE (J0330) ONE (11:14)
[2020-04-17] MEDS ORDERED: EPINEPHrine 1MG/10ML SYRINGE 1.5IN ONE (11:14)
[2020-04-17] MEDS ORDERED: ATROPINE SULF 1MG/10ML SYRINGE (J0461) ONE (11:14)
[2020-04-17 12:56] LABS: RSV AMPLIFICATION NEGATIVE (NEGATIVE)
== END 2020-04-17 15:20 | disposition expired ==
LOC: EDBD 11:13 → M ED 11:13
DX: I46.9 Cardiac arrest, cause unspecified (principal); I11.0 Hypertensive heart disease with heart failure; E78.5 Hyperlipidemia, unspecified; E11.9 Type 2 diabetes mellitus without complications; J44.9 Chronic obstructive pulmonary disease, unspecified; G47.33 Obstructive sleep apnea (adult) (pediatric); Z87.891 Personal history of nicotine dependence; Z88.0 Allergy status to penicillin; Z79.899 Other long term (current) drug therapy
CPT/HCPCS: 87631; 92950; 99285; J0330; J0461